=== PATIENT | female | born 1995 | race Caucasian/White ===

== ENCOUNTER 2019-11-18 22:24 | Emergency (ER) | payer OTHER, SELFPAY ==
[2019-11-18 22:37] VITALS: BP 139/77; PULSE 106; RESP 16; TEMP 36.7; O2SAT 100
--- NOTE | 2019-11-18 22:43 | ED.ABDPAIN ---
HPI - Abdominal Pain General Chief Complaint: Abdominal Pain Stated Complaint: STOMACH PAINS Time Seen by Provider: 11/18/19 22:42 History of Present Illness HPI narrative: RLQ pain for the past week. [place]amp[place] in quality. Associated with diarrhea and blood tinged stools. Called PCP and was started on antibiotics for presumed colitis. She continued to have pain, although none at this time. Related Data Home Medications Medication Instructions Recorded Confirmed doxycycline monohydrate 40 mg 40 mg PO DAILY 08/13/19 capsule,immediate - delay release ivermectin 1 % topical cream 1 applic TOPICAL DAILY 08/13/19 Allergies Allergy/AdvReac Type Severity Reaction Status Date / Time adhesive Allergy Unknown HIVES Verified 08/20/19 08:29 azithromycin Allergy Unknown Skin Verified 08/20/19 08:29 irritation codeine Allergy Unknown tight Verified 08/20/19 08:29 chest, shallow breathing penicillin G AdvReac Intermediate Fever Verified 08/20/19 08:29 Review of Systems Review of Systems: All systems reviewed & are unremarkable except as noted in HPI and below Constitutional: Constitutional: Denies fever(s) Cardiovascular: Cardiovascular: Denies chest pain Respiratory: Respiratory: Denies dyspnea Gastrointestinal: Gastrointestinal: Reports abdominal pain and Denies vomiting Genitourinary: Genitourinary: Denies hematuria, Denies dysuria and Denies vaginal discharge [facility] Past Medical History Medical History Anxiety GERD (gastroesophageal reflux disease) Hypermobility syndrome Surgical History Surgical History History of cholecystectomy History of knee surgery Family History Family History Mother Hypertension Sibling Asthma Other Family history of arthritis Family history of cardiovascular disease Social History Social History Smoking status: Former smoker Smoking end date: 10/19/18 Alcohol intake: current Exam Const: General: healthy appearing, no acute distress and alert Orientation/consciousness: patient oriented x3 HENMT: Head: normal to inspection Neck: Neck: normal visual inspection and no lymphadenopathy Chest: Chest palpation & inspection: no tenderness Resp: Effort & Inspection: normal respiratory effort Auscultation: clear to auscultation bilaterally, no rales, no rhonchi and no wheezes Cardio: Jugular venous distension: no JVD Rate: regular rate Rhythm: regular rhythm Heart sounds: no murmurs GI: GI Palp: Yes Soft to palpation, Yes Tenderness to palpation present (GI) (RLQ), No Guarding due to palpation present (GI) and No Rebound tenderness present Skin: General skin exam: normal color Neuro: General: patient oriented x3 and moves all extremities Speech: normal speech Extrem: General: no edema Psych: Appearance: well kempt Affect: normal affect Course Course Emergency Course: After my initial evaluation I was occupied with a critical patient for a few hours and was not able to speak to her again prior to her making the choice to sign out AMA. Vital Signs Vital signs: Vital Signs Temperature 36.7 C 11/18/19 22:37 Pulse Rate 106 H 11/18/19 22:37 Respiratory Rate 16 11/18/19 22:37 Blood Pressure 139/77 11/18/19 22:37 Pulse Oximetry 100 11/18/19 22:37 Temperature 36.7 C 11/18/19 22:37 Pulse Rate 106 H 11/18/19 22:37 Respiratory Rate 16 11/18/19 22:37 Blood Pressure 139/77 11/18/19 22:37 Pulse Oximetry 100 11/18/19 22:37 MDM - Abdominal Pain Differential Diagnosis Differential diagnosis: Likely acute appendicitis, constipation, gastroenteritis and other (IBS, IBD) Medical Records Attestation: I reviewed the patient's medical records. Lab Data Attestation: I reviewed the patient'
[2019-11-18] MEDS: ONDANSETRON INJ 4 MG/2 ML VIAL IV PUSH (23:26)
[2019-11-18] MEDS: DICYCLOMINE HCL INJ 20 MG/2 ML VIAL IM (23:26)
[2019-11-18] MEDS: SODIUM CHLORIDE 0.9% IV 1,000 ML 999 ML IV CONT (23:26)
[2019-11-18 23:35] LABS: Basophils Percent Auto 0.3 % (0.2-1.2); Eosinophils Absolute Auto 0.2 K/mm3 (0-0.3); Eosinophils Percent Auto 1.5 % (0-4.4); Hemoglobin 13.1 g/dL (12.0-15.0); Immature Granulocyte Absolute 0.05 K/mm3 (0.00-0.031); Immature Granulocyte Percent A 0.4 % (0-0.5); Lymphocytes Absolute Auto 4.87 K/mm3 (0.9-3.2); Lymphocytes Percent Auto 43.4 % (18.3-44.2); Mean Corpuscular HGB Conc 33.6 g/dl (32-36); Mean Corpuscular Hemoglobin 31.1 pg (26-34); Mean Corpuscular Volume 92.6 fl (80-100); Mean Platelet Volume 10.3 fl (7.4-10.4); Monocytes Absolute Auto 0.7 K/mm3 (0.1-0.6); Monocytes Percent Auto 6.2 % (2.6-8.5); Neutrophils Absolute Auto 5.4 K/mm3 (1.3-6.7); Neutrophils Percent Auto 48.2 % (45.5-73.1); Platelet Count Result 292 k/mm3 (150-375); Red Blood Count 4.21 M/mm3 (4.2-5.4); Red Cell Distribution Width 12.5 % (11.5-14.5); White Blood Count 11.2 K/mm3 (4.5-10.0)
[2019-11-18 23:43] LABS: Alanine Aminotransferase 27 U/L (4-35); Albumin Level 4.4 g/dL (3.5-5.1); Alkaline Phosphatase 78 U/L (38-126); Aspartate Amino Transferase 28 U/L (14-36); Bilirubin,Total 0.2 mg/dL (0.2-1.3); Blood Urea Nitrogen 12 mg/dL (7-17); Calcium 8.8 mg/dL (8.4-10.2); Carbon Dioxide 27 mmol/L (22-30); Chloride 103 mmol/L (98-107); Estimated Glomerular Filt Rate > 60; Glucose 85 mg/dL (65-105); Lipase 47 U/L (23-300); Potassium 3.8 mmol/L (3.4-5.0); Sodium 139 mmol/L (137-145)
[2019-11-18 23:47] LABS: Add Urine Microscopic? YES; Appearance Urine Clear (Clear); Bacteria Urine Trace /hpf; Bilirubin Urine Negative (Negative); Blood Urine Negative (Negative); Color Urine Yellow (Yellow); Glucose Urine UA Negative (Negative); Ketones Urine Negative (Negative); Leukocyte Esterase Ur Negative LEU/UL (Negative); Mucus Urine Rare /lpf; Nitrate Urine Negative (Negative); Protein Urine 1+ mg/dL (Negative); Squamous Epithelial Cell Urine Moderate /hpf (Few); WBC Urine 0-3 /hpf
== END 2019-11-19 02:49 | disposition left against medical advice (07) ==
PROVIDERS: Emergency Provider Emergency Medicine; PCP Family Medicine Adolescent Medicine
DX: R10.31 Right lower quadrant pain (principal); K21.9 Gastro-esophageal reflux disease without esophagitis; M35.7 Hypermobility syndrome; Z87.891 Personal history of nicotine dependence
CPT/HCPCS: 36415; 80053; 81001; 81025; 83690; 85025; 96361; 96372; 96374; 99284; J0500; J2405; J7030

== ENCOUNTER 2020-02-10 17:58 | Emergency (ER) | payer OTHER, SELFPAY ==
--- NOTE | ~2020-02-10 | CT_ITS ---
EXAMINATION: CT abdomen pelvis wo con DATE: 02/10/2020 19:03 INDICATION: Left flank pain TECHNIQUE: Computed tomography (CT) of the abdomen and pelvis was performed without intravenous contr ast. The dose-length product (DLP) was 1361.05 mGy-cm. Automated exposure control and iterative recon struction technique were employed. COMPARISON: 12/27/2017 FINDINGS: The lung bases are clear. The heart size is normal. The gallbladder is surgically absent. T he liver, spleen, pancreas, and adrenal glands are normal. The kidneys are unremarkable. No stones ar e identified in the kidneys, ureters, or bladder. There is no hydronephrosis or hydroureter. The appe ndix is normal. No pathologically enlarged abdominal or pelvic lymph nodes are identified. There is n o free intraperitoneal gas or evidence of bowel obstruction. A contraceptive device is noted in the v agina. IMPRESSION: 1. No CT correlate for the patient's symptoms. Reviewed, dictated and finalized at location A.
[2020-02-10 18:13] VITALS: BP 151/89; PULSE 99; RESP 20; TEMP 36.9; O2SAT 100
[2020-02-10 18:37] LABS: Basophils Percent Auto 0.2 % (0.2-1.2); Eosinophils Absolute Auto 0.2 K/mm3 (0-0.3); Eosinophils Percent Auto 1.7 % (0-4.4); Hematocrit 40.9 % (37.0-47.0); Hemoglobin 13.9 g/dL (12.0-15.0); Immature Granulocyte Absolute 0.02 K/mm3 (0.00-0.031); Immature Granulocyte Percent A 0.2 % (0-0.5); Lymphocytes Absolute Auto 2.89 K/mm3 (0.9-3.2); Lymphocytes Percent Auto 33.2 % (18.3-44.2); Mean Corpuscular Hemoglobin 31.2 pg (26-34); Mean Corpuscular Volume 91.9 fl (80-100); Mean Platelet Volume 9.9 fl (7.4-10.4); Monocytes Absolute Auto 0.5 K/mm3 (0.1-0.6); Monocytes Percent Auto 5.9 % (2.6-8.5); Neutrophils Absolute Auto 5.1 K/mm3 (1.3-6.7); Neutrophils Percent Auto 58.8 % (45.5-73.1); Platelet Count Result 313 k/mm3 (150-375); Red Blood Count 4.45 M/mm3 (4.2-5.4); White Blood Count 8.7 K/mm3 (4.5-10.0)
[2020-02-10 18:40] LABS: Add Urine Microscopic? YES; Appearance Urine Clear (Clear); Bacteria Urine Trace /hpf; Bilirubin Urine Negative (Negative); Blood Urine 1+ (Negative); Color Urine Yellow (Yellow); Glucose Urine UA Negative (Negative); Ketones Urine Negative (Negative); Leukocyte Esterase Ur Negative LEU/UL (Negative); Mucus Urine Rare /lpf; Nitrate Urine Negative (Negative); Protein Urine Negative (Negative); Squamous Epithelial Cell Urine Few /hpf (Few); Urobilinogen Urine Negative mg/dL (<2.0)
[2020-02-10 18:48] LABS: Anion Gap 13.9 mmol/L (7-16); Blood Urea Nitrogen 10 mg/dL (7-17); Calcium 9.1 mg/dL (8.4-10.2); Carbon Dioxide 24 mmol/L (22-30); Chloride 105 mmol/L (98-107); Estimated CRCL calculation 129 ml/min; Estimated Glomerular Filt Rate > 60; Glucose 104 mg/dL (65-105); Potassium 3.9 mmol/L (3.4-5.0); Sodium 139 mmol/L (137-145)
[2020-02-10] MEDS: ONDANSETRON INJ 4 MG/2 ML VIAL IV PUSH (19:04)
[2020-02-10] MEDS: FAMOTIDINE 20 MG/2 ML VIAL IV PUSH (19:04)
[2020-02-10] MEDS: SODIUM CHLORIDE 0.9% IV 1,000 ML 999 ML IV CONT (19:05)
--- NOTE | 2020-02-10 19:26 | ED.ABDPAIN ---
HPI - Abdominal Pain General Chief Complaint: Urogenital-Female <Alfred Milan PA-C - Last Filed: 02/10/20 20:19> Stated Complaint: left flank pain <Alfred Milan PA-C - Last Filed: 02/10/20 20:19> Time Seen by Provider: 02/10/20 18:46 <Alfred Milan PA-C - Last Filed: 02/10/20 20:19> Source: patient and family <Alfred Milan PA-C - Last Filed: 02/10/20 20:19> Mode of arrival: ambulatory <Alfred Milan PA-C - Last Filed: 02/10/20 20:19> Limitations: no limitations <Alfred iMlan PA-C - Last Filed: 02/10/20 20:19> History of Present Illness HPI narrative: Patient is a 24-year-old female who presents with acute onset left flank pain in the lower abdomen left-sided noting aching pain worse with activity movement associated nausea tried some [id number] medication with no improvement denies similar occurrence in the past presents per private vehicle in no distress <Alfred Milan PA-C - Last Filed: 02/10/20 20:19> Related Data Allergies/Adverse Reactions: Allergies Allergy/AdvReac Type Severity Reaction Status Date / Time adhesive Allergy Unknown HIVES Verified 02/10/20 18:34 azithromycin Allergy Unknown Skin Verified 02/10/20 18:34 irritation codeine Allergy Unknown tight Verified 02/10/20 18:34 chest, shallow breathing penicillin G AdvReac Intermediate Fever Verified 02/10/20 18:34 <Alfred Milan PA-C - Last Filed: 02/10/20 20:19> Review of Systems Review of Systems: All systems reviewed & are unremarkable except as noted in HPI and below <Alfred Milan PA-C - Last Filed: 02/10/20 20:19> [facility] Past Medical History Medical History: Medical History Anxiety GERD (gastroesophageal reflux disease) Hypermobility syndrome <Alfred Milan PA-C - Last Filed: 02/10/20 20:19> Surgical History Surgical History: Surgical History History of cholecystectomy History of knee surgery <Alfred Milan PA-C - Last Filed: 02/10/20 20:19> Social History Social History: Social History Smoking status: Former smoker Smoking end date: 10/19/18 Alcohol intake: current <Alfred Milan PA-C - Last Filed: 02/10/20 20:19> Exam Narrative: Exam Narrative: GENERAL: Well-appearing, obese, and in no acute distress. HEAD: Normocephalic, atraumatic. EYES: PERRLA and EOMI. ENT: Nares clear, no rhinorrhea or epistaxis. Mucous membranes moist. CHEST: Clear to auscultation. No respiratory distress. No wheezes rales or rhonchi HEART: Regular rate and rhythm. No murmur heard. Normal peripheral pulses. ABDOMEN: Soft, left lower quadrant tenderness to palpation no rebound or guarding, nondistended EXTREMITIES: Normal range of motion. No edema. SKIN: Warm, dry, no rash. NEURO: No focal deficits. Alert and oriented x3. PSYCH: Normal mood and affect. <Alfred Mialn PA-C - Last Filed: 02/10/20 20:19> Course Course Emergency Course: Patient in the room in no distress aware of case findings treatment plan and diagnosis. Patient aware of case findings treatment plan diagnosis CT imaging results. Patient felt appropriate for outpatient reevaluation afebrile nontoxic-appearing no distress <Alfred Milan PA-C - Last Filed: 02/10/20 20:19> Vital Signs Vital signs: Vital Signs Temperature 98.4 F 02/10/20 18:13 Pulse Rate 99 02/10/20 18:13 Respiratory Rate 20 02/10/20 18:13 Blood Pressure 151/89 H 02/10/20 18:13 Pulse Oximetry 100 02/10/20 18:13 Temperature 98.4 F 02/10/20 18:13 Pulse Rate 70 02/10/20 20:33 Respiratory Rate 18 02/10/20 20:33 Blood Pressure 132/70 02/10/20 20:33 Pulse Oximetry 98 02/10/20 20:33 <MADELINE Pat Last Filed: 02/10/20 20:19> Vital Signs Te
[2020-02-10 20:02] VITALS: BP 96/58; PULSE 70; RESP 18; O2SAT 99
[2020-02-10 20:33] VITALS: BP 132/70; PULSE 70; RESP 18; O2SAT 98
[2020-02-10] MEDS: KETOROLAC 30 MG/ML VIAL (*BKC) IV PUSH (20:33)
== END 2020-02-10 20:35 | disposition home or self-care (01) ==
PROVIDERS: Emergency Provider Emergency Medicine; PCP Family Medicine Adolescent Medicine
DX: R10.9 Unspecified abdominal pain (principal); M35.7 Hypermobility syndrome; K21.9 Gastro-esophageal reflux disease without esophagitis; Z87.891 Personal history of nicotine dependence
CPT/HCPCS: 36415; 74176; 80048; 81001; 81025; 85025; 87086; 96365; 96375; 99284; J0131; J1885; J2405; J7030

== ENCOUNTER 2020-05-30 17:42 | Emergency (ER) | payer OTHER, SELFPAY ==
[2020-05-30 18:00] VITALS: BP 124/89; PULSE 96; RESP 18; TEMP 36.9; O2SAT 100
--- NOTE | 2020-05-30 18:30 | PC.NURSE ---
Pt was able to get in touch with her doctor and will see him tomorrow.
[2020-05-30 18:38] LABS: Basophils Percent Auto 0.3 % (0.2-1.2); Eosinophils Absolute Auto 0.2 K/mm3 (0-0.3); Eosinophils Percent Auto 1.8 % (0-4.4); Hematocrit 38.6 % (37.0-47.0); Hemoglobin 12.9 g/dL (12.0-15.0); Immature Granulocyte Absolute 0.04 K/mm3 (0.00-0.031); Immature Granulocyte Percent A 0.4 % (0-0.5); Lymphocytes Percent Auto 29.6 % (18.3-44.2); Mean Corpuscular HGB Conc 33.4 g/dl (32-36); Mean Corpuscular Hemoglobin 30.6 pg (26-34); Mean Corpuscular Volume 91.7 fl (80-100); Mean Platelet Volume 9.8 fl (7.4-10.4); Monocytes Absolute Auto 0.5 K/mm3 (0.1-0.6); Monocytes Percent Auto 5.1 % (2.6-8.5); Neutrophils Absolute Auto 6.6 K/mm3 (1.3-6.7); Neutrophils Percent Auto 62.8 % (45.5-73.1); Platelet Count Result 290 k/mm3 (150-375); Red Blood Count 4.21 M/mm3 (4.2-5.4); Red Cell Distribution Width 12.7 % (11.5-14.5); White Blood Count 10.5 K/mm3 (4.5-10.0)
[2020-05-30 18:52] LABS: Alanine Aminotransferase 65 U/L (4-35); Albumin Level 4.2 g/dL (3.5-5.1); Alkaline Phosphatase 63 U/L (38-126); Anion Gap 8 mmol/L (8-16); Aspartate Amino Transferase 45 U/L (14-36); Bilirubin,Total 0.3 mg/dL (0.2-1.3); Blood Urea Nitrogen 14 mg/dL (7-17); Calcium 9.3 mg/dL (8.4-10.2); Carbon Dioxide 29 mmol/L (22-30); Chloride 102 mmol/L (98-107); Estimated CRCL calculation 114 ml/min; Estimated Glomerular Filt Rate > 60; Glucose 100 mg/dL (65-105); Lipase 39 U/L (23-300); Sodium 139 mmol/L (137-145)
== END 2020-05-30 18:30 | disposition left against medical advice (07) ==
LOC: ANHED 18:31
PROVIDERS: Emergency Provider Emergency Medicine; PCP Family Medicine Adolescent Medicine
DX: R10.9 Unspecified abdominal pain (principal)
CPT/HCPCS: 36415; 80053; 83690; 85025; 99199

== ENCOUNTER 2021-02-01 07:23 | Outpatient (CLI) | payer BC, SELFPAY ==
[2021-02-01 08:45] LABS: Hematocrit 37.2 % (37.0-47.0); Hemoglobin 12.3 g/dL (12.0-15.0); Mean Corpuscular HGB Conc 33.1 g/dl (32-36); Mean Corpuscular Hemoglobin 30.4 pg (26-34); Mean Corpuscular Volume 91.9 fl (80-100); Mean Platelet Volume 10.1 fl (7.4-10.4); Platelet Count Result 285 k/mm3 (150-375); Red Blood Count 4.05 M/mm3 (4.2-5.4); White Blood Count 7.6 K/mm3 (4.5-10.0)
[2021-02-01 09:11] LABS: HIV 1/2 Ab P24 Ag Result Negative (Negative)
[2021-02-01 09:25] LABS: Rapid Plasma Reagin Non-Reactive (NonReactive)
[2021-02-01 09:33] LABS: Hepatitis B Surface Anti Res Negative
[2021-02-01 11:52] LABS: Rubella IgG Antibody > 120.0 IU/ML
[2021-02-02 11:22] LABS: Hepatitis B Surface Antigen Negative (Negative)
== END 2021-02-01 07:24 | disposition home or self-care (01) ==
LOC: ANHLAB 07:26
PROVIDERS: PCP Family Medicine Adolescent Medicine; Visit Provider Obstetrics & Gynecology
DX: N92.5 Other specified irregular menstruation (principal)
CPT/HCPCS: 36415; 84702; 85027; 86592; 86644; 86703; 86706; 86747; 86762; 86787; 87340; G0432

== ENCOUNTER 2021-04-27 19:12 | Observation (INO) | payer BC, SELFPAY ==
[2021-04-27 20:00] VITALS: BMI 41.5
[2021-04-27 20:12] LABS: Add Urine Microscopic? NO; Appearance Urine Clear (Clear); Bilirubin Urine Negative (Negative); Blood Urine Negative (Negative); Color Urine Yellow (Yellow); Glucose Urine UA Negative (Negative); Ketones Urine Negative (Negative); Leukocyte Esterase Ur Negative LEU/UL (NEGATIVE); Nitrate Urine Negative (Negative); Protein Urine Negative (Negative); Specific Grav Ur 1.008 (1.001-1.035); Urobilinogen Urine Negative mg/dL (<2.0)
--- NOTE | 2021-04-27 22:56 | OBADM ---
This patient, Rafaela Bullock, admitted to the OB room [facility] for observation. Patient/family oriented to hospital policies and general routines including ID bracelet, bed and alarms, visiting hours, pain management, procedures, bathroom and other care routines, personal items, smoking policy, room service/diet, and visiting hours. Patient/Family are encouraged to report perceived risks to care and to ask questions if they do not understand what they are told or what they should do.
--- NOTE | 2021-05-02 20:32 | P.PNOB_ITS ---
OB - Triage/Final Diagnosis Visit Information Comments/Additional reasons for admission: I have assessed the risk for this patient, Rafaela Bullock, and determined that she would benefit from observation care. Evaluation Laboratory results: Laboratory Tests 04/27/21 20:04 Urine Color Yellow Urine Appearance Clear Urine pH 7.0 Ur Specific [place] 1.008 Urine Protein Negative Urine Glucose (UA) Negative Urine Ketones Negative Ur Blood (Man) Negative Urine Nitrate Negative Urine Bilirubin Negative Urine Urobilinogen Negative Ur Leukocyte Esterase Negative Final Diagnosis (1) Abdominal pain affecting : Code(s): O26.899 - Other specified related conditions, unspecified trimester; R10.9 - Unspecified abdominal pain Status: Acute
== END 2021-04-27 21:00 | disposition home or self-care (01) ==
PROVIDERS: Admitting Provider Obstetrics & Gynecology; PCP Family Medicine Adolescent Medicine; Visit Provider Obstetrics & Gynecology
DX: O26.892 Other specified pregnancy related conditions, second trimester (principal); R10.9 Unspecified abdominal pain; Z3A.17 17 weeks gestation of pregnancy
CPT/HCPCS: 81003; 87086; G0378; G0379

== ENCOUNTER 2021-05-28 10:03 | Observation (INO) | payer BC, SELFPAY ==
[2021-05-28 10:30] VITALS: BP 113/63; PULSE 78; BMI 41.5
--- NOTE | 2021-05-28 10:30 | OBADM ---
This patient, Rafaela Bullock, admitted to the OB room [facility] Post [facility] for observation. Patient/family oriented to hospital policies and general routines including ID bracelet, bed and alarms, visiting hours, pain management, procedures, bathroom and other care routines, personal items, smoking policy, room service/diet, and visiting hours. Patient/Family are encouraged to report perceived risks to care and to ask questions if they do not understand what they are told or what they should do.
[2021-05-28 10:45] VITALS: BP 108/76; PULSE 78
[2021-05-28 11:00] VITALS: BP 105/75; PULSE 79
[2021-05-28 11:15] VITALS: BP 104/65; PULSE 73
[2021-05-28 12:18] LABS: Add Urine Microscopic? NO; Appearance Urine Clear (Clear); Bilirubin Urine Negative (Negative); Blood Urine Negative (Negative); Color Urine Straw (Yellow); Glucose Urine UA Negative (Negative); Ketones Urine Negative (Negative); Leukocyte Esterase Ur Negative LEU/UL (NEGATIVE); Nitrate Urine Negative (Negative); Protein Urine Negative (Negative); Urobilinogen Urine Negative mg/dL (<2.0)
[2021-05-28 12:20] LABS: Specific Grav Ur 1.003 (1.001-1.035)
--- NOTE | 2021-05-30 12:55 | PM.OBTRLD ---
OB - Triage/Final Diagnosis Visit Information Reason for evaluation: threatened labor Comments/Additional reasons for admission: I have assessed the risk for this patient, Rafaela Bullock, and determined that she would benefit from observation care. Evaluation Laboratory results: Laboratory Tests 05/28/21 11:59 Urine Color Straw Urine Appearance Clear Urine pH 7.0 Ur Specific [place] 1.003 Urine Protein Negative Urine Glucose (UA) Negative Urine Ketones Negative Ur Blood (Man) Negative Urine Nitrate Negative Urine Bilirubin Negative Urine Urobilinogen Negative Ur Leukocyte Esterase Negative
== END 2021-05-28 12:45 | disposition home or self-care (01) ==
PROVIDERS: Admitting Provider Obstetrics & Gynecology; PCP Family Medicine Adolescent Medicine; Visit Provider Obstetrics & Gynecology
DX: O47.03 False labor before 37 completed weeks of gestation, third trimester (principal); Z3A.22 22 weeks gestation of pregnancy
CPT/HCPCS: 81003; 87086; G0378; G0379

== ENCOUNTER 2021-07-05 09:36 | Outpatient (RCR) | payer BC, SELFPAY ==
[2021-07-03 10:30] LABS: Hematocrit 33.5 % (37.0-47.0); Hemoglobin 11.4 g/dL (12.0-15.0); Mean Corpuscular Hemoglobin 31.8 pg (26-34); Mean Corpuscular Volume 93.6 fl (80-100); Mean Platelet Volume 9.8 fl (7.4-10.4); Platelet Count Result 317 k/mm3 (150-375); Red Blood Count 3.58 M/mm3 (4.2-5.4); Red Cell Distribution Width 12.6 % (11.5-14.5)
[2021-07-03 11:01] LABS: HIV 1/2 Ab P24 Ag Result Negative (Negative)
[2021-07-05] MEDS: RHO(D) IMMUNE GLOBULIN 300 MCG/2 ML SYRINGE IM (10:09)
== END 2021-10-01 23:59 | disposition home or self-care (01) ==
LOC: ANHLAB 09:36
PROVIDERS: PCP Family Medicine Adolescent Medicine; Visit Provider Obstetrics & Gynecology
DX: Z11.4 Encounter for screening for human immunodeficiency virus [HIV] (principal); Z29.13 Encounter for prophylactic Rho(D) immune globulin; O36.0120 Maternal care for anti-D [Rh] antibodies, second trimester, not applicable or unspecified; Z3A.00 Weeks of gestation of pregnancy not specified
CPT/HCPCS: 36415; 85027; 85461; 86703; 90384; 96372; G0432; J2790

== ENCOUNTER 2021-08-02 15:15 | Emergency (ER) | payer BC, SELFPAY ==
--- NOTE | ~2021-08-02 | XR_ITS ---
XR chest 1V portable DATE: 08/02/2021 16:27 INDICATION: Sternal chest pressure. Shortness of breath. Covid-positive 10 days ago. TECHNIQUE: Portable AP chest on 08/02/2021 at 1623 hours COMPARISON: 10/18/2018 2 view chest FINDINGS: Normal heart size. No hilar or mediastinal enlargement. No pulmonary infiltrate or consolid ation, pleural effusion or pulmonary vascular congestion or pneumothorax. Included skeletal structure s are unremarkable. IMPRESSION: Negative Reviewed, dictated and finalized at location J. NSIONAL ENGINEER IMPRESSION: Negative
--- NOTE | ~2021-08-02 | NM_ITS ---
NM pulmonary perfusion DATE: 08/02/2021 18:04 INDICATION: Chest pressure TECHNIQUE: Routine 8 view perfusion images after intravenous injection of 20.98 mCi 99m technetium MA A COMPARISON: 08/02/2021 vertebral upright AP chest FINDINGS: Normal distribution of radiotracer throughout both lung alan. IMPRESSION: Normal examination. No evidence of clinically significant pulmonary embolus Reviewed, dictated and finalized at Location A. Reviewed, dictated and finalized at location J. [employer]
[2021-08-02 15:35] VITALS: BP 107/93; PULSE 128; RESP 18; TEMP 36.2; O2SAT 97
--- NOTE | 2021-08-02 15:41 | ECG_ITS ---
Measurements Intervals [place] Rate: 91 P: 24 MO: 108 QRS: 35 QRSD: 87 T: 16 QT: 316 QTc: 390 Interpretive Statements SINUS RHYTHM WITH SINUS ARRHYTHMIA WITH SHORT MO INTERVAL INCOMPLETE RIGHT BUNDLE BRANCH BLOCK BORDERLINE ECG Electronically Signed On 08-02-2021 16:22:50 CORNER TRIMMER OPERATOR by Marvel Hall D.O.
--- NOTE | 2021-08-02 16:30 | ED.GENADULT ---
HPI - General Adult General Chief complaint: Upper Respiratory Infection Stated complaint: CP, SOB, covid+ 10 days ago Time Seen by Provider: 08/02/21 16:08 Source: patient and RN notes reviewed Mode of arrival: ambulatory Limitations: no limitations History of Present Illness HPI narrative: This is a 26 year old female [place] 31 weeks who presents for evaluation of chest pressure. She developed symptoms of COVID 10days ago . She reports having cough, nasal congestion and sore throat. She tested positive for COVID last Friday. She has come to ER today because this morning she developed constant upper chest pressure and her cough has become less productive. She also reports shortness of breath with exertion. Her chest pressure is worse with coughing. She denies leg swelling, calf pain or history of PE/DVT. She also denies fever. She states she is unsure how long she is suppose to feel unwell. She reports only receiving 1 dose of covid vaccination over 1 year. She is also complaining of lower abdominal pressure for 3 days but she denies vaginal bleeding or leakage of fluid Related Data Home Medications Medication Instructions Recorded Confirmed No Home Medications 08/02/21 08/02/21 Allergies Allergy/AdvReac Type Severity Reaction Status Date / Time adhesive Allergy Unknown HIVES Verified 08/02/21 15:38 azithromycin Allergy Unknown Skin Verified 08/02/21 15:38 irritation codeine Allergy Unknown tight Verified 08/02/21 15:38 chest, shallow breathing penicillin G AdvReac Intermediate Fever Verified 08/02/21 15:38 Review of Systems Review of Systems: All systems reviewed & are unremarkable except as noted in HPI and below PMFSH Past Medical History Medical History (Updated 08/03/21 @ 00:00 by Essence Ann) Anxiety 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 GERD (gastroesophageal reflux disease) Hypermobility syndrome Surgical History Surgical History (Updated 08/01/21 @ 11:27 by CEM Dwyer) Delivery by section (09/19/15) primary c/s History of cholecystectomy History of knee surgery Family History Family History Mother Hypertension Sibling Asthma Other Family history of arthritis Family history of cardiovascular disease Social History Social History Smoking status: Former smoker Smoking end date: 10/19/18 Alcohol intake: current Gender identity (if verbalized by the patient): Female Exam Const: General: no acute distress and alert Orientation/consciousness: patient oriented x3 Eyes: EOM: EOMs intact bilaterally Chest: Chest palpation & inspection: normal inspection of the chest Resp: Effort & Inspection: normal respiratory effort Auscultation: clear to auscultation bilaterally Cardio: Rate: regular rate Rhythm: regular rhythm Heart sounds: no murmurs GI: GI Palp: Yes Soft to palpation, No Tenderness to palpation present (GI) and No Guarding due to palpation present (GI) Auscultation: normal bowel sounds Skin: General skin exam: normal color Rashes: no rashes Neuro: General: patient oriented x3, moves all extremities and CN's II-XI intact bilaterally Psych: Mental Status: mental status grossly normal Affect: normal affect Course Reevaluation(s) Reevaluation #1: I Discussed with patient that she will need to follow up with OB next week to monitor elevated LFTs. No sign of preeclampsia at this time. She will monitor her blood pressure and she states she is not taking tylenol. No PE suspected. Date: 08/02/21 Time: 20:09 Consultations Consultation #1: I spoke with DR. Madison who is in class special education teacher for Dr. Burt. I discussed ER evaluation. I notified her that LFTS were elevated with no protein in urine and BP is normal. She states they will follow up with Patient early next week. Date: 08/02/21 Time: 20:11
[2021-08-02 16:40] LABS: Basophils Percent Auto 0.2 % (0.2-1.2); Eosinophils Absolute Auto 0.1 K/mm3 (0-0.3); Hematocrit 31.1 % (37.0-47.0); Hemoglobin 10.5 g/dL (12.0-15.0); Immature Granulocyte Absolute 0.04 K/mm3 (0.00-0.031); Immature Granulocyte Percent A 0.4 % (0-0.5); Lymphocytes Percent Auto 21.8 % (18.3-44.2); Mean Corpuscular HGB Conc 33.8 g/dl (32-36); Mean Corpuscular Volume 91.7 fl (80-100); Mean Platelet Volume 10.2 fl (7.4-10.4); Monocytes Absolute Auto 0.7 K/mm3 (0.1-0.6); Monocytes Percent Auto 6.4 % (2.6-8.5); Neutrophils Absolute Auto 7.1 K/mm3 (1.3-6.7); Neutrophils Percent Auto 70.2 % (45.5-73.1); Platelet Count Result 343 k/mm3 (150-375); Red Blood Count 3.39 M/mm3 (4.2-5.4); Red Cell Distribution Width 12.5 % (11.5-14.5); White Blood Count 10.1 K/mm3 (4.5-10.0)
[2021-08-02 16:42] LABS: Add Urine Microscopic? NO; Appearance Urine Clear (Clear); Bilirubin Urine Negative (Negative); Blood Urine Negative (Negative); Color Urine Yellow (Yellow); Glucose Urine UA Negative (Negative); Ketones Urine Negative (Negative); Leukocyte Esterase Ur Negative LEU/UL (Negative); Nitrate Urine Negative (Negative); Protein Urine Negative (Negative); Specific Grav Ur 1.026 (1.001-1.035); Urobilinogen Urine Negative mg/dL (<2.0)
[2021-08-02 16:49] LABS: Alanine Aminotransferase 244 U/L (4-35); Albumin Level 3.5 g/dL (3.5-5.1); Alkaline Phosphatase 108 U/L (38-126); Anion Gap 8 mmol/L (8-16); Aspartate Amino Transferase 197 U/L (14-36); Bilirubin,Total 0.6 mg/dL (0.2-1.3); Blood Urea Nitrogen 7 mg/dL (7-17); Calcium 8.5 mg/dL (8.4-10.2); Carbon Dioxide 22 mmol/L (22-30); Chloride 104 mmol/L (98-107); Estimated CRCL calculation 120 ml/min; Estimated Glomerular Filt Rate > 60; Glucose 100 mg/dL (65-110); Potassium 4.1 mmol/L (3.4-5.0); Sodium 134 mmol/L (137-145)
[2021-08-02 16:55] LABS: INR 0.9; Prothrombin Time 12.2 Seconds (11.1-14.7)
[2021-08-02 16:56] LABS: Partial Thromboplastin Time 29.3 SECONDS (22.3-36.8)
[2021-08-02 16:58] LABS: D Dimer 0.51 ug/mL (<0.48)
[2021-08-02 17:01] LABS: Troponin I < 0.012 ng/mL (0.000-0.034)
[2021-08-02] MEDS: LACTATED RINGERS 1,000 ML 999 ML IV CONT (17:05)
[2021-08-02 19:15] VITALS: O2SAT 98
[2021-08-02 19:16] VITALS: BP 98/66; PULSE 80; RESP 18; O2SAT 98
--- NOTE | 2021-08-02 19:45 | PC.NURSE ---
heart tones obtained by OB nurse. FHR 130's with accelerations and moderate variability. no contractions noted on monitor and abdomen palpates soft. baby noted to me moving audibly and per mom.
== END 2021-08-02 20:37 | disposition home or self-care (01) ==
PROVIDERS: Emergency Provider General Practice; PCP Family Medicine Adolescent Medicine
DX: O98.513 Other viral diseases complicating pregnancy, third trimester (principal); U07.1 COVID-19; R07.89 Other chest pain; R74.01 Elevation of levels of liver transaminase levels; Z3A.31 31 weeks gestation of pregnancy; O99.613 Diseases of the digestive system complicating pregnancy, third trimester; K21.9 Gastro-esophageal reflux disease without esophagitis; Z87.891 Personal history of nicotine dependence; I45.10 Unspecified right bundle-branch block
CPT/HCPCS: 36415; 71045; 78580; 80053; 81003; 84484; 85025; 85380; 85610; 85730; 93005; 96360; 99284; A9540; J7120

== ENCOUNTER 2021-08-09 14:54 | Outpatient (CLI) | payer BC, SELFPAY ==
[2021-08-09 15:27] LABS: Alanine Aminotransferase 263 U/L (4-35); Albumin Level 3.5 g/dL (3.5-5.1); Alkaline Phosphatase 107 U/L (38-126); Aspartate Amino Transferase 223 U/L (14-36); Bilirubin,Total 0.6 mg/dL (0.2-1.3)
== END 2021-08-09 14:55 | disposition home or self-care (01) ==
LOC: ANHLAB 14:56
PROVIDERS: PCP Family Medicine Adolescent Medicine; Visit Provider Obstetrics & Gynecology
DX: R74.8 Abnormal levels of other serum enzymes (principal)
CPT/HCPCS: 36415; 80076

== ENCOUNTER 2021-08-10 00:18 | Outpatient (CLI) | payer BC, SELFPAY ==
[2021-08-10 00:42] VITALS: BP 131/85; PULSE 83
[2021-08-10 00:46] VITALS: BP 125/73; PULSE 82
[2021-08-10 01:06] LABS: Basophils Percent Auto 0.3 % (0.2-1.2); Eosinophils Absolute Auto 0.1 K/mm3 (0-0.3); Eosinophils Percent Auto 1.1 % (0-4.4); Hemoglobin 10.7 g/dL (12.0-15.0); Immature Granulocyte Absolute 0.03 K/mm3 (0.00-0.031); Immature Granulocyte Percent A 0.3 % (0-0.5); Lymphocytes Absolute Auto 3.04 K/mm3 (0.9-3.2); Lymphocytes Percent Auto 30.3 % (18.3-44.2); Mean Corpuscular HGB Conc 33.4 g/dl (32-36); Mean Corpuscular Hemoglobin 30.8 pg (26-34); Mean Corpuscular Volume 92.2 fl (80-100); Mean Platelet Volume 10.1 fl (7.4-10.4); Monocytes Absolute Auto 0.6 K/mm3 (0.1-0.6); Neutrophils Absolute Auto 6.2 K/mm3 (1.3-6.7); Platelet Count Result 340 k/mm3 (150-375); Red Blood Count 3.47 M/mm3 (4.2-5.4); Red Cell Distribution Width 13.1 % (11.5-14.5)
[2021-08-10 01:13] LABS: Add Urine Microscopic? NO; Appearance Urine Clear (Clear); Bilirubin Urine Negative (Negative); Blood Urine Negative (Negative); Color Urine Yellow (Yellow); Glucose Urine UA Negative (Negative); Ketones Urine Negative (Negative); Leukocyte Esterase Ur Negative LEU/UL (NEGATIVE); Nitrate Urine Negative (Negative); Protein Urine Negative (Negative); Urobilinogen Urine Negative mg/dL (<2.0)
[2021-08-10 01:19] LABS: Alanine Aminotransferase 279 U/L (4-35); Albumin Level 3.7 g/dL (3.5-5.1); Alkaline Phosphatase 116 U/L (38-126); Anion Gap 8 mmol/L (8-16); Aspartate Amino Transferase 208 U/L (14-36); Bilirubin,Total 0.6 mg/dL (0.2-1.3); Blood Urea Nitrogen 10 mg/dL (7-17); Calcium 10.9 mg/dL (8.4-10.2); Carbon Dioxide 26 mmol/L (22-30); Chloride 102 mmol/L (98-107); Estimated Glomerular Filt Rate > 60; Glucose 97 mg/dL (65-110); Potassium 3.7 mmol/L (3.4-5.0); Sodium 136 mmol/L (137-145); Uric Acid 5.1 mg/dL (2.5-7.5)
--- NOTE | 2021-08-10 01:40 | PC.NURSE ---
spoke to Dr. Burt notified pt admission for sever headaches. HIP lab result was reported include elevated liver enzyme. requested pain meds for headaches. new order received. If pt feels relived with medication, okay to discharge after two hours.
[2021-08-10] MEDS: ACETAMINOPHEN/BUTALBITAL/CAFFEINE 325-50-40 MG TABLET (FIORICET) 1 TAB (01:43)
[2021-08-10 01:49] VITALS: BP 125/73; PULSE 80
[2021-08-10] MEDS: ACETAMINOPHEN/BUTALBITAL/CAFFEINE 325-50-40 MG TABLET (FIORICET) 1 TAB PO (04:38)
--- NOTE | 2021-08-10 04:49 | P.PNOB_ITS ---
OB - Triage/Final Diagnosis Visit Information Reason for evaluation: other (headache) Comments/Additional reasons for admission: I have assessed the risk for this patient, Rafaela Bell Kobe, and determined that she would benefit from observation care. Evaluation Laboratory results: Laboratory Tests 08/10/21 08/10/21 08/10/21 00:45 00:45 00:45 WBC 10.0 RBC 3.47 L Hgb 10.7 L Hct 32.0 L MCV 92.2 MCH 30.8 MCHC 33.4 RDW 13.1 Plt Count 340 MPV 10.1 Immature Gran % (Auto) 0.3 Neut % (Auto) 62.0 Lymph % (Auto) 30.3 [place] % (Auto) 6.0 Eos % (Auto) 1.1 Baso % (Auto) 0.3 Lymph # (Auto) 3.04 [place] # (Auto) 0.6 Eos # (Auto) 0.1 Baso # (Auto) 0.0 Abs Immat Gran (auto) 0.03 Absolute Neuts (auto) 6.2 Absolute Nucleated RBC 0.0 Nucleated RBC % 0.0 Sodium 136 L Potassium 3.7 Chloride 102 Carbon Dioxide 26 Anion Gap 8 BUN 10 Creatinine 0.70 Estim Creat Clear Calc Not Reportable Estimated GFR > 60 Glucose 97 Uric Acid 5.1 Calcium 10.9 H Total Bilirubin 0.6 AST 208 H ALT 279 H Alkaline Phosphatase 116 Total Protein 7.0 Albumin 3.7 Urine Color Yellow Urine Appearance Clear Urine pH 8.0 Ur Specific [place] 1.010 Urine Protein Negative Urine Glucose (UA) Negative Urine Ketones Negative Ur Blood (Man) Negative Urine Nitrate Negative Urine Bilirubin Negative Urine Urobilinogen Negative Ur Leukocyte Esterase Negative Vital signs: Vital Signs - 24 hr 08/10/21 00:42 08/10/21 00:46 08/10/21 01:49 Pulse Rate 83 82 80 Blood Pressure 131/85 125/73 Blood Pressure [Right Arm] 125/73
--- NOTE | 2021-08-10 04:50 | PC.NURSE ---
Pt states her headache is much better. Dr. Burt phoned in for status and additional lab is ordered. Okay to discharge after lab drawn
[2021-08-10 06:09] LABS: Hepatitis B Surface Antigen Negative (Negative)
[2021-08-10 06:15] LABS: HAV RESULT Negative (Negative); Hepatitis B Core IgM Result Negative (Negative)
[2021-08-10 06:27] LABS: Hepatitis C Virus Antibody Negative (Negative)
== END 2021-08-10 01:47 ==
LOC: ANHOBPP 04:34 → ANHOBOP 08-15 08:24
PROVIDERS: PCP Family Medicine Adolescent Medicine; Visit Provider Obstetrics & Gynecology
DX: O13.3 Gestational [pregnancy-induced] hypertension without significant proteinuria, third trimester (principal); Z3A.32 32 weeks gestation of pregnancy
CPT/HCPCS: 36415; 59025; 80053; 80074; 81003; 84550; 85025; 87086; 99199; A9270; G0378; G0379

== ENCOUNTER 2021-08-14 17:05 | Outpatient (CLI) | payer BC, SELFPAY ==
[2021-08-14 17:30] VITALS: BP 110/71
[2021-08-14 17:36] VITALS: BP 110/71; PULSE 98
[2021-08-14 17:46] VITALS: BP 113/76; PULSE 98
[2021-08-14 17:55] VITALS: BP 113/76
== END 2021-08-14 17:55 | disposition home or self-care (01) ==
LOC: ANHOBOP 17:11 → ANHOBPP 17:11
PROVIDERS: PCP Family Medicine Adolescent Medicine; Visit Provider Obstetrics & Gynecology
DX: O13.9 Gestational [pregnancy-induced] hypertension without significant proteinuria, unspecified trimester (principal); Z3A.00 Weeks of gestation of pregnancy not specified
CPT/HCPCS: 59025; 99199

== ENCOUNTER 2021-08-16 16:57 | Outpatient (CLI) | payer BC, SELFPAY ==
[2021-08-16 14:23] LABS: Hepatitis B Surface Antigen Negative (Negative)
[2021-08-16 14:29] LABS: HAV RESULT Negative (Negative); Hepatitis B Core IgM Result Negative (Negative)
[2021-08-16 14:41] LABS: Hepatitis C Virus Antibody Negative (Negative)
[2021-08-16 18:07] LABS: Alanine Aminotransferase 214 U/L (4-35); Albumin Level 3.5 g/dL (3.5-5.1); Alkaline Phosphatase 127 U/L (38-126); Aspartate Amino Transferase 197 U/L (14-36); Bilirubin,Total 0.5 mg/dL (0.2-1.3)
== END 2021-08-16 16:58 | disposition home or self-care (01) ==
PROVIDERS: PCP Family Medicine Adolescent Medicine; Visit Provider Obstetrics & Gynecology
DX: R74.8 Abnormal levels of other serum enzymes (principal)
CPT/HCPCS: 36415; 80074; 80076

== ENCOUNTER 2021-08-19 12:52 | Observation (INO) | payer BC, SELFPAY ==
[2021-08-19 13:12] VITALS: BP 122/92; PULSE 127
[2021-08-19 13:15] VITALS: BP 123/81; PULSE 123
[2021-08-19 13:30] VITALS: BP 116/81; PULSE 114; TEMP 36.9
[2021-08-19 13:45] VITALS: BP 118/66; PULSE 107
[2021-08-19 13:51] VITALS: BMI 42.1
--- NOTE | 2021-08-19 13:52 | LDADM ---
This patient, Rafaela Bullock, was admitted to OB [facility] on 08/19/21 at 12:52. Plans for labor, pain management and were discussed with patient. Patient/family oriented to hospital policies and general routines including ID bracelet, bed and alarms, visiting hours, pain management, procedures, bathroom and other care routines, personal items, smoking policy, room service/diet and guest tray routines, security routines, and visiting hours. Patient/Family are encouraged to report perceived risks to care and to ask questions if they do not understand what they are told or what they should do. See OBIX for further documentation.
[2021-08-19 13:53] LABS: Add Urine Microscopic? YES; Appearance Urine Clear (Clear); Bacteria Urine Trace /hpf; Bilirubin Urine Negative (Negative); Blood Urine Negative (Negative); Color Urine Yellow (Yellow); Glucose Urine UA Negative (Negative); Ketones Urine Negative (Negative); Leukocyte Esterase Ur Trace LEU/UL (Negative); Mucus Urine Rare /lpf; Nitrate Urine Negative (Negative); Protein Urine Negative (Negative); RBC Urine 0-2 /hpf (0-2); Specific Grav Ur 1.017 (1.001-1.035); Squamous Epithelial Cell Urine Moderate /hpf (Few); Urobilinogen Urine Negative mg/dL (<2.0)
[2021-08-19 14:00] VITALS: BP 108/75; PULSE 103
[2021-08-19 14:15] VITALS: BP 115/81; PULSE 111
--- NOTE | 2021-08-21 16:43 | P.PNOB_ITS ---
OB - Triage/Final Diagnosis Visit Information Comments/Additional reasons for admission: I have assessed the risk for this patient, Rafaela Bullock, and determined that she would benefit from observation care. Evaluation Laboratory results: Laboratory Tests 08/19/21 13:31 Urine Color Yellow Urine Appearance Clear Urine pH 7.0 Ur Specific [place] 1.017 Urine Protein Negative Urine Glucose (UA) Negative Urine Ketones Negative Ur Blood (Man) Negative Urine Nitrate Negative Urine Bilirubin Negative Urine Urobilinogen Negative Leukocyte Esterase Rfl Trace H Urine RBC 0-2 Urine WBC 7-9 H Ur Squamous Epith Cells Moderate H Urine Bacteria Trace Urine Mucus Rare Final Diagnosis (1) Back pain affecting : Code(s): O99.891 - Other specified diseases and conditions complicating ; M54.9 - Dorsalgia, unspecified Status: Acute
== END 2021-08-19 14:45 | disposition home or self-care (01) ==
PROVIDERS: Admitting Provider Obstetrics & Gynecology; PCP Family Medicine Adolescent Medicine; Visit Provider Obstetrics & Gynecology
DX: O99.891 Other specified diseases and conditions complicating pregnancy (principal); M54.9 Dorsalgia, unspecified; Z3A.34 34 weeks gestation of pregnancy
CPT/HCPCS: 81001; 87086; G0378; G0379

== ENCOUNTER 2021-08-21 09:29 | Outpatient (CLI) | payer BC, SELFPAY ==
--- NOTE | ~2021-08-21 | US_ITS ---
US abdomen limited DATE: 08/21/2021 10:19 INDICATION: Elevated serum enzymes TECHNIQUE: Real-time imaging of liver, pancreas, gallbladder fossa COMPARISON: 02/10/2020 CT abdomen pelvis FINDINGS: No hepatic space-occupying mass lesion is evident. Normal hepatopedal portal venous flow di rection. The pancreatic tail is obscured by bowel gas but the pancreas is otherwise unremarkable. The gallbladder is surgically absent. No bile duct dilatation; the common bile duct measures 3 mm. IMPRESSION: Status post cholecystectomy Reviewed, dictated and finalized at Location A. Reviewed, dictated and finalized at location B. P FITNESS ASSISTANT DEPARTMENT HEAD IMPRESSION: Status post cholecystectomy
== END 2021-08-21 09:30 | disposition home or self-care (01) ==
PROVIDERS: PCP Family Medicine Adolescent Medicine; Visit Provider Obstetrics & Gynecology
DX: R74.8 Abnormal levels of other serum enzymes (principal); Z90.49 Acquired absence of other specified parts of digestive tract
CPT/HCPCS: 76705

== ENCOUNTER 2021-08-31 10:54 | Outpatient (CLI) | payer BC, SELFPAY ==
[2021-08-31 12:28] LABS: Alanine Aminotransferase 101 U/L (4-35); Albumin Level 3.7 g/dL (3.5-5.1); Alkaline Phosphatase 123 U/L (38-126); Anion Gap 10 mmol/L (8-16); Aspartate Amino Transferase 98 U/L (14-36); Bilirubin,Total 0.6 mg/dL (0.2-1.3); Blood Urea Nitrogen 10 mg/dL (7-17); Calcium 9.4 mg/dL (8.4-10.2); Carbon Dioxide 23 mmol/L (22-30); Chloride 100 mmol/L (98-107); Estimated Glomerular Filt Rate > 60; Glucose 101 mg/dL (65-110); Potassium 4.1 mmol/L (3.4-5.0); Sodium 133 mmol/L (137-145)
[2021-09-06 10:47] LABS: Chenodeoxycholic Acid 5.1 umol/L (< OR = 3.9); Cholic Acid 16.9 umol/L (< OR = 2.8); Deoxycholic Acid <0.5 umol/L (< OR = 2.3)
== END 2021-08-31 10:55 | disposition home or self-care (01) ==
LOC: ANHLAB 10:56
PROVIDERS: PCP Family Medicine Adolescent Medicine; Visit Provider Obstetrics & Gynecology
DX: R74.8 Abnormal levels of other serum enzymes (principal)
CPT/HCPCS: 36415; 80053; 82542

== ENCOUNTER 2021-09-10 09:26 | Outpatient (RCR) | payer BC, SELFPAY ==
[2021-09-07 11:02] VITALS: BP 109/77; PULSE 117
[2021-09-10 09:51] VITALS: BP 123/82; PULSE 86
== END 2021-11-26 09:00 | disposition home or self-care (01) ==
LOC: ANHOBOP 09:26
PROVIDERS: PCP Family Medicine Adolescent Medicine; Visit Provider Obstetrics & Gynecology
DX: O26.613 Liver and biliary tract disorders in pregnancy, third trimester (principal); K83.1 Obstruction of bile duct; Z3A.36 36 weeks gestation of pregnancy; Z3A.37 37 weeks gestation of pregnancy
CPT/HCPCS: 59025

== ENCOUNTER 2021-09-11 11:00 | Outpatient (CLI) | payer BC, SELFPAY ==
[2021-09-11 11:47] LABS: Hematocrit 30.6 % (37.0-47.0); Mean Corpuscular HGB Conc 32.7 g/dl (32-36); Mean Corpuscular Hemoglobin 29.9 pg (26-34); Mean Corpuscular Volume 91.6 fl (80-100); Mean Platelet Volume 11.1 fl (7.4-10.4); Platelet Count Result 278 k/mm3 (150-375); Red Blood Count 3.34 M/mm3 (4.2-5.4); Red Cell Distribution Width 13.1 % (11.5-14.5); White Blood Count 7.8 K/mm3 (4.5-10.0)
[2021-09-12 14:54] LABS: Rapid Plasma Reagin Non-Reactive (NonReactive)
== END 2021-09-11 11:01 | disposition home or self-care (01) ==
PROVIDERS: PCP Family Medicine Adolescent Medicine; Visit Provider Obstetrics & Gynecology
DX: Z34.93 Encounter for supervision of normal pregnancy, unspecified, third trimester (principal); Z3A.00 Weeks of gestation of pregnancy not specified
CPT/HCPCS: 36415; 85027; 86592; 86850; 86900; 86901

== ENCOUNTER 2021-09-12 09:44 | Inpatient (IN) | payer BC, SELFPAY ==
[2021-09-12] VITALS (53 sets, daily range): BP systolic 98–144; BP diastolic 54–90; PULSE 54–184; RESP 16; TEMP 36.1–37.2; O2SAT 91–100; BMI 43.2
--- NOTE | 2021-09-12 07:56 | PM.IMHP ---
H&P: HPI History of Present Illness Date/Time: 09/12/21 11:51 Rafaela is a 26yo @ 37.3wks (OMI 09/30/21) who presents for scheduled repeat section. She had COVID infection 07/2021 and was then found to have elevated LFT's while in the ER for COVID complications. They were trended and did decrease; US was normal; and hepatitis panel was negative. She started having itching, and bile acids returned elevated diagnosing cholestasis. She was started on ursodiol but reported worse side effects (diarrhea/n/v) and stopped it. She has been undergoing testing which was normal. No regular contractions. No VB or LOF. Good movement. Her is complicated by: 1. H/o x1; for repeat 2. COVID infection 07/2021 3. Cholestasis with elevated LFTs 4. Obesity 5. Rh negative.. s/p rhogam 6. 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 GERD (gastroesophageal reflux disease) Hypermobility syndrome Surgical History Surgical History Delivery by section (09/19/15) primary c/s History of cholecystectomy History of knee surgery Family History Family History Mother Hypertension Sibling Asthma Other Family history of arthritis Family history of cardiovascular disease Social History Social History Smoking status: Never smoker Second hand tobacco smoke exposure: No Smoking end date: 10/19/18 Alcohol intake: former Alcohol use details: socially when not Substance use: never Substance use type: does not use Additional living arrangements comments: mother 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 Gender identity (if verbalized by the patient): Female Sexual Orientation (if Verbalized by the Patient): Straight or Heterosexual Spiritual care concerns: No Meds Home Medications and Allergies Home Medications Medication Instructions Recorded Confirmed Type vitamins-iron fumarate 65 1 tablet PO DAILY 08/31/21 09/07/21 History mg iron-folic acid 1 mg tablet sertraline 50 mg tablet 50 mg PO DAILY #90 tablet 08/31/21 09/07/21 Rx ursodiol 300 mg capsule 300 mg PO TID 30 Days #90 cap 09/06/21 09/07/21 Rx famotidine 20 mg PO BID 09/07/21 09/07/21 History Allergies Allergy/AdvReac Type Severity Reaction Status Date / Time adhesive Allergy Unknown HIVES Verified 09/05/21 09:49 azithromycin Allergy Unknown Skin Verified 09/05/21 09:49 irritation codeine Allergy Unknown tight Verified 09/05/21 09:49 chest, shallow breathing penicillin G AdvReac Intermediate Fever Verified 09/05/21 09:49 Exam Const: General: cooperative, comfortable and no acute distress Nutritional Appearance: obese Resp: Effort & Inspection: normal respiratory effort Cardio: Rate: regular rate GI: GI Palp: No abdominal tenderness and Yes Soft to palpation : Other: FHT's: 130's/ mod elin/ + accels/ no decels - cat 1 TOCO: irregular ctx's Membranes: intact; GBS negative Presentation: cephalic Skin: General skin exam: normal color Neuro: General: patient oriented x3 Extrem: General: normal to inspection Psych: Appearance: grossly normal Affect: normal affect Attitude: cooperative Assessment and Plan Assessment and plan (1) Cholestasis during in third trimester: Code(s): O26.613 - Liver and biliary tract disorders in , third trimester; K83.1 - Obstruction of bile duct Status: Acute (2) Previous section: Code(s): Z98.891 - Hist
--- OUTSIDE RECORDS SUMMARY | 2021-09-12 09:51 | XMS_ITS ---
:1995 Author Care Team Providers Name Role Phone FELECIA LAWRENCE MD Primary Care Provider [phone] Allergies Code Code System Name Reaction Severity Status Onset 2670 RxNorm Codeine Chest Pain Moderate Active ? Zithromax Z-joy Hives Moderate to Active ? Severe Medications Name Status Start Date Stop Date ? ? Accu-Chek Guide Glucose Meter Active ? No t available Accu-Chek Guide test strips Active ? Not available Accu-Chek Softclix Lancets Active ? Not a vailable acyclovir 800 mg tablet Completed ? 02/14/20 amoxicillin 875 mg tablet Active ? Not av ailable amoxicillin 875 mg-potassium clavulanate 125 mg tablet Active ? Not available TAKE 1 TABLET BY MOUTH EVERY 12 HOURS FOR 7 DAYS Bactrim DS 800 mg-160 mg tablet Completed ? 05/31/2020 Take 1 tablet every 12 hours by oral route for 7 days. [id number]-srqobcchyflgo-pssgtffp 50 Active ? Not available mg-300 mg-40 mg capsule cephalexin 500 mg capsule Completed ? 2020 TAKE 1 CAPSULE BY MOUTH EVERY 8 HOURS FOR 10 DAYS ciprofloxacin 500 mg tablet Completed ? 01/19 doxycycline hyclate 20 mg tablet Completed ? 02/14/2020 duloxetine 20 mg capsule,delayed release Active ? Not available TAKE 2 CAPS DAILY FOR 14 DAYS, THEN 1 D AILY FOR 14 DAYS, THEN EVERY OTHER DAY FOR 14 DAYS duloxetine 60 mg capsule,delayed release Active ? Not available TAKE 1 CAPSULE BY MOUTH EVERY DAY famotidine 20 mg tablet Active ? Not avai lable fluconazole 150 mg tablet Active ? Not av ailable TAKE 1 TABLET BY MOUTH EVERY 72 HOURS NEEDED.
--- OUTSIDE RECORDS SUMMARY | 2021-09-12 09:51 | XMS_ITS | Encounter Summary ---
:1995 Author Care Team Providers Name Role Phone Michi Gruber MD Primary Care Provider [phone] Reason for Visit return OB visit Assessment and Plan 1. Routine care ? HIV (1+2) Ab screen, serum ? CBC ? abo group + rh type, blood ? Rh immune globulin screeni ng - rhogam workup and injection Discussion Note: None recorded.Patient educational handouts: No information available. Plan of Care Reminders Provider Appointments None ? ? recorded. Lab HIV (1+2) Ab [facility] Screen, Serum 06/26/2021 [place] ? [facility] 06/26/2021 Center ? [facility] Rh Type, Blood 06/26/2021 Center ? Rh Immune [facility] Globulin Screening 06/26/2021 [place] Referral None ? ? recorded. Procedures None ? ? recorded. Surgeries None ? ? recorded. Imaging None ? ? recorded. Medications Name Start Date ? ? Accu-Chek Guide Glucose Meter ? Accu-Chek Guide test strips ?
--- OUTSIDE RECORDS SUMMARY | 2021-09-12 09:51 | XMS_ITS ---
:1995 Author Care Team Providers Name Role Phone FELECIA LAWRENCE MD Primary Care Provider [phone] Allergies Code Code System Name Reaction Severity Status Onset 2670 RxNorm Codeine Chest Pain Moderate Active ? Zithromax Z-joy Hives Moderate to Active ? Severe Medications Name Status Start Date Stop Date ? ? acyclovir 800 mg tablet Completed ? 02/14/20 amoxicillin 875 mg-potassium Completed ? 04/2021 clavulanate 125 mg tablet Bactrim DS 800 mg-160 mg tablet Completed ? 05/31/2020 Take 1 tablet every 12 hours by oral route for 7 days. ciprofloxacin 500 mg tablet Completed ? 01/19 doxycycline hyclate 20 mg tablet Completed ? 02/14/2020 duloxetine 20 mg capsule,delayed Completed ? 02/14/2020 release duloxetine 60 mg capsule,delayed Completed ? 02/14/2020 release famotidine 20 mg tablet Completed ? 02/14/20 fluconazole 150 mg tablet Completed ? 2020 fluconazole 200 mg tablet Completed ? 2019 hydrocodone 5 mg-acetaminophen 325 mg Completed ? 02/14/2020 tablet hyoscyamine sulfate 0.125 mg tablet Completed ? 02/14/2020 ibuprofen 600 mg tablet Completed ? 02/14/20 20 ibuprofen 800 mg tablet Completed ? 02/14/20 20 ivermectin 1 % topical cream Completed ? 08/09 (28) 1 mg-20 mcg (21)/75 Active ? Not available mg (7) tablet metronidazole 500 mg tablet Completed ? 01/19 nitrofurantoin Completed ? 02/14/2020
[2021-09-12] MEDS: LACTATED RINGERS 1,000 ML 125 ML IV CONT (10:45)
--- NOTE | 2021-09-12 11:10 | LDADM ---
This patient, Rafaela Bullock, was admitted to Labor/Delivery/Recovery 120 on 09/12/21 at 09:44. Plans for labor, pain management and were discussed with patient. Patient/family oriented to hospital policies and general routines including ID bracelet, bed and alarms, visiting hours, pain management, procedures, bathroom and other care routines, personal items, smoking policy, room service/diet and guest tray routines, infant security routines, and visiting hours. Patient/Family are encouraged to report perceived risks to care and to ask questions if they do not understand what they are told or what they should do. See OBIX for further documentation.
[2021-09-12 11:23] LABS: INR 0.9; Prothrombin Time 11.8 Seconds (11.1-14.7)
[2021-09-12 11:24] LABS: Partial Thromboplastin Time 25.6 SECONDS (22.3-36.8)
[2021-09-12 11:26] LABS: Alanine Aminotransferase 99 U/L (4-35); Albumin Level 3.5 g/dL (3.5-5.1); Alkaline Phosphatase 141 U/L (38-126); Anion Gap 7 mmol/L (8-16); Aspartate Amino Transferase 104 U/L (14-36); Bilirubin,Total 0.5 mg/dL (0.2-1.3); Blood Urea Nitrogen 10 mg/dL (7-17); Calcium 8.7 mg/dL (8.4-10.2); Carbon Dioxide 21 mmol/L (22-30); Chloride 105 mmol/L (98-107); Estimated CRCL calculation 123 ml/min; Estimated Glomerular Filt Rate > 60; Glucose 75 mg/dL (65-110); Potassium 4.1 mmol/L (3.4-5.0); Sodium 133 mmol/L (137-145)
[2021-09-12] MEDS: GENTAMICIN SULFATE INJ 365 MG in DEXTROSE 5% 100 ML 100 MG IVPB (11:45)
--- NOTE | 2021-09-12 11:47 | WPDANESEPPF ---
Anes - Initial Pre Proc Eval Procedure: Operation Date: 09/12/21 12:00 Proposed Procedures p Repeat Section - Linda Madison MD Date/Time: 09/12/21 11:47 Surgeon: Linda Madison MD Pre Op Diagnosis: c/s Patient Data Age: 26 Gender: F Height: 1.57 m Weight: 107.3 kg Last Vital Signs Pulse 82 09/12/21 10:15 BP 115/80 09/12/21 10:15 Pulse Ox 99 09/12/21 10:14 Allergies Allergy/AdvReac Type Severity Reaction Status Date / Time adhesive Allergy Unknown HIVES Verified 09/05/21 09:49 azithromycin Allergy Unknown Skin Verified 09/05/21 09:49 irritation codeine Allergy Unknown tight Verified 09/05/21 09:49 chest, shallow breathing penicillin G AdvReac Intermediate Fever Verified 09/05/21 09:49 Home Medications Medication Instructions Recorded Confirmed Type vitamins-iron fumarate 65 1 tablet PO DAILY 08/31/21 09/07/21 History mg iron-folic acid 1 mg tablet sertraline 50 mg tablet 50 mg PO DAILY #90 tablet 08/31/21 09/07/21 Rx ursodiol 300 mg capsule 300 mg PO TID 30 Days #90 cap 09/06/21 09/07/21 Rx famotidine 20 mg PO BID 09/07/21 09/07/21 History Laboratory Tests 09/12/21 09/12/21 11:06 11:06 PT 11.8 Seconds Seconds (11.1-14.7) INR 0.9 APTT 25.6 SECONDS SECONDS (22.3-36.8) Sodium 133 mmol/L L mmol/L (137-145) Potassium 4.1 mmol/L mmol/L (3.4-5.0) Chloride 105 mmol/L mmol/L (98-107) Carbon Dioxide 21 mmol/L L mmol/L (22-30) Anion Gap 7 mmol/L L mmol/L (8-16) BUN 10 mg/dL mg/dL (7-17) Creatinine 0.70 mg/dL mg/dL (0.7-1.0) Estim Creat Clear Calc 123 ml/min ml/min Estimated GFR > 60 (59 - ) Glucose 75 mg/dL mg/dL (65-110) Calcium 8.7 mg/dL mg/dL (8.4-10.2) Total Bilirubin 0.5 mg/dL mg/dL (0.2-1.3) AST 104 U/L H U/L (14-36) ALT 99 U/L H U/L (4-35) Alkaline Phosphatase 141 U/L H U/L (38-126) Total Protein 7.0 g/dL g/dL (6.3-8.2) Albumin 3.5 g/dL g/dL (3.5-5.1) Patient hx anesthesia problems: none Family hx anesthesia problems: none Results Review: All pre-operative results and documents have been reviewed as part of the pre-operative evaluation. 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 GERD (gastroesophageal reflux disease) Hypermobility syndrome Surgical History Surgical History Delivery by section (09/19/15) primary c/s History of cholecystectomy History of knee surgery Family History Family History Mother Hypertension Sibling Asthma Other Family history of arthritis Family history of cardiovascular disease Social History Social History Smoking status: Never smoker Second hand tobacco smoke exposure: No Smoking end date: 10/19/18 Alcohol intake: former Alcohol use details: socially when not Substance use: never Substance use type: does not use Additional living arrangements comments: mother 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
--- NOTE | 2021-09-12 11:53 | WPDHPUPDATE1 ---
History and Physical Update Update Date/Time: 09/12/21 11:53 History and Physical has been reviewed, including an updated exam of the patient. There are NO changes in the patient's condition. Risks, benefits, and alternatives have been discussed and questions answered. Patient agrees to proceed with procedure.
[2021-09-12] MEDS: KETOROLAC 30 MG/ML VIAL (*BKC) IV PUSH ×2 (13:15→19:27)
[2021-09-12] MEDS: CLINDAMYCIN 900 MG/D5W 50 ML 900 MG/50 ML PIGGYBACK 50 MG IVPB (13:17)
--- NOTE | 2021-09-12 13:27 | PM.OBPRVD ---
OB - Delivery Note Procedure Delivery date: 09/12/21 Procedure: Procedures Operation Date: 09/12/21 12:00 <No data on this case meets the specified criteria> Events: Previous Delivery and Other (Cholestasis) Route of delivery: Specimen: Yes (placenta) Quantitative Blood Loss (ml): 555 Anesthesia type: Spinal Disposition: floor Baby Date of : 09/12/21 Time of : 12:44 Weeks of gestation at delivery: 37 (.3) gender: Female Weight (pounds): 6 Weight (ounces): 12 presentation: vertex position: Left Occiput Transverse Placenta delivery description: Expressed Cord Vessel Description: 3 Vessels score one minute: 8 score five minutes: 9 Narrative: She was counseled on all risks and benefits in detail. She was taken to the operating room where spinal was placed. She was then prepped and draped in the normal sterile fashion. She received Gentamycin and Clindamycin due to PCN allergy and a time out was performed. A Pfannenstiel incision was made in the skin and carried down to the underlying fascia. The fascia was nicked on either side of the midline and the fascial incision was extended laterally and superiorly. The fascia was then elevated and the underlying rectus muscles were dissected off the fascia, superiorly and inferiorly. The rectus muscles were then in the midline and the peritoneum was entered bluntly. Once adequate exposure was obtained, no adheasions were palpated and a Mobius self retractor was placed within the abdomen. A low transverse incision was made on the lower uterine segment and clear fluid was noted. The occiput was brought to the hysterotomy and the head was easily delivered. The shoulder and body then followed without complications. The had spontaneous cry and the mouth and nose were bulb suctioned. The cord was clamped and cut and the was handed off to the awaiting pediatric nurse. A segment of the cord was collected for cord gases. The remaining cord blood was collected for typing. With pitocin infusing, the placenta delivered with gentle traction on the cord without complications. The uterus was then cleared out of all clots and debris using a clean, moist lap. The hysterotomy was then repaired in a running, interlocking fashion using 0 Vicryl. A second layer imbricating suture was then made using 0 Vicryl. The hysterotomy was found to be hemostatic and good uterine tone was noted. The bilateral adnexa were examined and found to be normal. The pelvis was cleared of all clots and fluid. The Mobius retractor was removed from the abdomen. The peritoneum, muscle, and fascia were examined and made hemostatic with bovie cautery. A single 0 Vicryl U-stitch was placed to reapproximate the muscles in the midline. The fascia was then repaired using a 0 Vicryl suture in a running fashion. The subcutaneous tissue was then irrigated and made hemostatic with bovie cautery. The subcutaneous tissue was then reapproximated using 2-0 Vicryl. The skin was then closed using 4-0 Monocryl in a running subcuticular fashion. Sponge, lap, needle and instrument counts were correct at the end of the procedure x2. The patient tolerated the procedure well and was taken to recovery in a stable condition. [facility] Delivery Billing Delivery Delivery: Delivery Charge
[2021-09-12] MEDS: diphenhydrAMINE HCl INJ 50 MG/ML VIAL 25 MG IV PUSH (13:55)
[2021-09-12] MEDS: OXYTOCIN 30 UNITS/NS 500 ML 30 UNITS/500 ML BAG 125 UNITS IV CONT (15:44)
[2021-09-12] MEDS: oxyCODONE HCL (*CRX) 5 MG TAB IR 10 MG PO (17:59)
[2021-09-12] MEDS: SIMETHICONE 80 MG TAB.CHEW PO (17:59)
[2021-09-12] MEDS: DOCUSATE SODIUM 100 MG CAPSULE PO (17:59)
[2021-09-12] MEDS: LANOLIN (LANSINOH) 7.5 GM CREAM 1 APPLIC TOPICAL (18:00)
[2021-09-12] MEDS: DEXTROSE 5%/0.45% SOD CHL 1,000 ML 125 ML IV CONT (20:23)
[2021-09-13] VITALS: BP 112/65; PULSE 77; RESP 18; TEMP 37
[2021-09-13] MEDS: KETOROLAC 30 MG/ML VIAL (*BKC) IV PUSH (00:24)
[2021-09-13] MEDS: SIMETHICONE 80 MG TAB.CHEW PO ×5 (03:27→19:12)
[2021-09-13] MEDS: oxyCODONE HCL (*CRX) 5 MG TAB IR 10 MG PO ×3 (03:27→22:46)
[2021-09-13 04:00] VITALS: BP 106/72; PULSE 66; RESP 16; TEMP 36.8
[2021-09-13 05:41] LABS: Basophils Percent Auto 0.4 % (0.2-1.2); Eosinophils Absolute Auto 0.2 K/mm3 (0-0.3); Hematocrit 28.2 % (37.0-47.0); Hemoglobin 9.2 g/dL (12.0-15.0); Immature Granulocyte Absolute 0.05 K/mm3 (0.00-0.031); Immature Granulocyte Percent A 0.5 % (0-0.5); Lymphocytes Absolute Auto 2.96 K/mm3 (0.9-3.2); Lymphocytes Percent Auto 27.9 % (18.3-44.2); Mean Corpuscular HGB Conc 32.6 g/dl (32-36); Mean Corpuscular Hemoglobin 29.6 pg (26-34); Mean Corpuscular Volume 90.7 fl (80-100); Mean Platelet Volume 11.4 fl (7.4-10.4); Monocytes Absolute Auto 0.5 K/mm3 (0.1-0.6); Monocytes Percent Auto 4.8 % (2.6-8.5); Neutrophils Absolute Auto 6.9 K/mm3 (1.3-6.7); Neutrophils Percent Auto 64.4 % (45.5-73.1); Platelet Count Result 265 k/mm3 (150-375); Red Blood Count 3.11 M/mm3 (4.2-5.4); Red Cell Distribution Width 13.2 % (11.5-14.5); White Blood Count 10.6 K/mm3 (4.5-10.0)
[2021-09-13] MEDS: IBUPROFEN 600 MG TABLET PO ×3 (07:52→22:44)
[2021-09-13] MEDS: POLYSACCHARIDE IRON COMPLEX 150 MG CAPSULE PO ×2 (07:53→19:06)
[2021-09-13] MEDS: DOCUSATE SODIUM 100 MG CAPSULE PO ×2 (07:53→19:06)
[2021-09-13] MEDS: oxyCODONE HCL (*CRX) 5 MG TAB IR PO ×3 (07:53→19:11)
[2021-09-13] MEDS: MULTIVIT/MIN/PREN/FOL AC/IRON TABLET 1 TAB PO (07:55)
[2021-09-13 08:00] VITALS: PULSE 66; RESP 16; O2SAT 100
[2021-09-13 08:15] VITALS: BP 116/77; PULSE 86; RESP 16; TEMP 36.6; O2SAT 100
--- NOTE | 2021-09-13 11:52 | WPDANLDPN2 ---
Anes-Prog Note L&D Date/Time: 09/13/21 11:52 Comfortable throughout: section Neuraxial method: spinal Epidural/Spinal procedure site: clean & non-tender Neuro status: Neuro function grossly intact. Cardiovascular status: normal Respiratory status: normal Airway patency: baseline Mental status: baseline Post-Op hydration status: normal Vital Signs: Last Vital Signs Temp 36.6 C 09/13/21 08:15 Pulse 86 09/13/21 08:15 Resp 16 09/13/21 08:15 BP 116/77 09/13/21 08:15 Pulse Ox 100 09/13/21 08:15 Pain score (VAS): 4 I/O: Intake & Output 09/12/21 09/13/21 09/13/21 23:59 07:59 15:59 Intake Total 800 800 Output Total 1300 500 Balance -500 300 Post-procedural complaints: none Patient feedback: Patient satisfied with anesthetic care.
--- NOTE | 2021-09-13 11:52 | WPDANLDNPN2 ---
Anes-Prog Note L&D-Neuraxial Date/Time: 09/13/21 11:52 Neuraxial medications: intrathecal PF morphine Opiod-related complaints: none Patient feedback: Patient satisfied with post-operative pain management.
[2021-09-13 12:05] VITALS: BP 115/69; PULSE 82; RESP 16; TEMP 36.4; O2SAT 99
--- NOTE | 2021-09-13 12:40 | PM.OBPNVD ---
OB - PN: Subj Subjective Date/time seen: 09/13/21 12:36 Narrative: POD#1 Rafaela reports doing ok today, she is feeling anxious and did not sleep last night. Her bleeding is very light. Her pain is controlled, is having some cramping. She is tolerating regular diet, voiding, passing gas, and ambulating without issues. She denies any issues with her incision. She is breast feeding. OB - PN: Obj Data Labs CBC & Chem 7: 09/13/21 04:13 09/12/21 11:06 Labs: Laboratory Results - last 24 hr 09/13/21 04:13 WBC 10.6 H RBC 3.11 L Hgb 9.2 L Hct 28.2 L MCV 90.7 MCH 29.6 MCHC 32.6 RDW 13.2 Plt Count 265 MPV 11.4 H Immature Gran % (Auto) 0.5 Neut % (Auto) 64.4 Lymph % (Auto) 27.9 [place] % (Auto) 4.8 Eos % (Auto) 2.0 Baso % (Auto) 0.4 Lymph # (Auto) 2.96 [place] # (Auto) 0.5 Eos # (Auto) 0.2 Baso # (Auto) 0.0 Abs Immat Gran (auto) 0.05 H Absolute Neuts (auto) 6.9 H Absolute Nucleated RBC 0.0 Nucleated RBC % 0.0 OB - PN A/P Assessment and Plan (1) S/P section: Code(s): Z98.891 - History of uterine scar from previous surgery Status: Acute Plan day: 1 Plan: routine care Time Spent With Patient Time: Total time spent is greater than 50% in coordination of care (as documented) at patient's floor/unit and/or counseling patient: Review of Systems Constitutional: Constitutional: Denies chills, Denies fever(s) and Denies headache(s) Eyes: Eyes: Denies change in vision ENT: Denies dizziness and Denies headache(s) Cardiovascular: Cardiovascular: Denies chest pain, Denies palpitations and Denies dyspnea Respiratory: Respiratory: Denies cough and Denies dyspnea Gastrointestinal: Gastrointestinal: Denies nausea and Denies vomiting Genitourinary: Comments: normal bleeding Neurologic: Denies dizziness and Denies headache(s) Endocrine: Endocrine: Denies palpitations Exam Const: General: cooperative, comfortable and no acute distress Orientation/consciousness: patient oriented x3 Resp: Effort & Inspection: normal respiratory effort Auscultation: clear to auscultation bilaterally Cardio: Rate: regular rate GI: Inspection: non-distended and incision (covered with clean dressing) GI Palp: Yes abdominal tenderness (appropriate) and Yes Soft to palpation Auscultation: normal bowel sounds : Other: fundus firm Skin: General skin exam: normal color Neuro: General: patient oriented x3 Extrem: General: normal to inspection Psych: Appearance: grossly normal Affect: normal affect Attitude: cooperative
--- NOTE | 2021-09-13 14:57 | PC.NURSE ---
[id number] Consulted with patient to assess needs related to . Mother led conversation with her experience with feeding baby so far. Mother works well with her infant with encouragement. Reviewed good handwashing when working with , breast, nipples and how to protect the nipples with a deep latch. Encouraged understanding the benefits of skin to skin, responding to feeding cues, frequencies of feeding 8-12 times in 24 hours (approximately 2-3 hours), duration of feedings, milk production, intake/output feeding sheet and signs of adequate intake. Discussed stimulating with skin to skin, hand expressing colostrum, touch and talking to to encourage eating at the breast. Reviewed positioning and alignment, supporting breast, off-centered (asymmetrical latch) and leading with the chin with big open wide gape. Infant latched onto left breast in cross cradle position with good rocking motion, swallowing and no discomfort to mother. After 5-7 min the nipple was assessed and it was not misshaped. RN assisted practicing football position to the right breast. Education given to mother of how to visualize suck/swallow ratios and drinking at the breast. was able to maintain latch without discomfort to mother. Nipple care, comfort and healing with warm, wet washcloth to rinse breast and leave to air-dry. Colostrum may be left on nipples to dry but have clean hands when touching the nipple/breast. Resources used to facilitate learning were used from the visual handout/ tool/mom and baby guide. Mother voiced understanding responding to feeding cues, may need to stimulating approximately 2-3 hours from the start of the last feeding, calling for assistance if the infant does not latch or there discomfort . Reported to primary RN.
--- NOTE | 2021-09-13 15:02 | PC.NURSE ---
[id number] Breast pump provided due to mother request. Reviewed information regarding pump care, hand washing, nipple care and pumping 8 times in 24 hours (1-2 at night) for 10-15 minutes. Discussed she may want to pump after feedings or between feedings. If after feeding, rest for 5-10 minutes. Get something to eat/drink, use the restroom, then pump. Collection and storage of breast milk per mom and baby guide. Encouraged mom to place skin to skin, breast massage and use hand expression and/or a breast pump in a relaxing atmosphere. Reviewed recording pumping schedule on the feeding sheet or pumping log. Referred to the visual handout along with the mom and baby guide as a resource and when to call a provider. Reported to primary RN.
--- NOTE | 2021-09-13 15:04 | PC.NURSE ---
[id number] Consulted with patient to assess needs related to . Mother led conversation with her experience with feeding baby so far. Mother works well with her infant. Reviewed how to protect the nipples with a deep latch. Encouraged understanding the benefits of skin to skin, responding to feeding cues, frequencies of feeding 8-12 times in 24 hours (approximately 2-3 hours), duration of feedings, milk production, intake/output feeding sheet and signs of adequate intake. Discussed stimulating infant with skin to skin, hand expressing colostrum, touch and talking to infant to encourage eating at the breast. Reviewed positioning and alignment, supporting breast, off-centered (asymmetrical latch) and leading with the chin with big open wide gape. Infant latched optimally to the left breast in football position after several learning attempts. Education given to mother of how to visualize suck/swallow ratios and drinking at the breast. Infant was able to maintain latch without discomfort to mother. After 10 min infant detached and nipple was visualized as not misshaped. RN assisted mother into a optimal latch to the right breast in football position. Nipple care, comfort and healing with warm, wet washcloth to rinse breast and leave to air-dry. Colostrum may be left on nipples to dry but have clean hands when touching the nipple/breast. Resources used to facilitate learning were used from the visual handout, tool and mom and baby guide. Mother voiced understanding responding to feeding cues, may need to stimulating approximately 2-3 hours from the start of the last feeding, calling for assistance if the infant does not latch or there discomfort . Mother verbalized frustration with father of the baby several times. Encouraged dad with some things he can do to support mother and baby. Encouraged mother to asked for assistance and specifically what others can do to facilitate and healing. Reported to primary RN.
[2021-09-13] MEDS: CALCIUM CARBONATE (TUMS) 500 MG (200 MG ELEMENTAL) (15:18)
[2021-09-13] MEDS: SERTRALINE HCL 50 MG TABLET PO (19:12)
[2021-09-13 20:28] VITALS: BP 127/73; PULSE 88; RESP 18; TEMP 36.8; O2SAT 97
--- NOTE | 2021-09-14 05:41 | PM.OBPNVD ---
OB - PN: Subj Subjective Date/time seen: 09/14/21 05:41 Narrative: POD#2 Rafaela reports feeling better today, she is less anxious and finally got some sleep. Her bleeding is very light. Her pain is controlled, is having some cramping. She is tolerating regular diet, voiding, passing gas, and ambulating without issues. She denies any issues with her incision. She is breast feeding. She would like to go home today. OB - PN: Obj Data Labs CBC & Chem 7: 09/13/21 04:13 09/12/21 11:06 Labs: Laboratory Results - last 24 hr 09/13/21 04:13 WBC 10.6 H RBC 3.11 L Hgb 9.2 L Hct 28.2 L MCV 90.7 MCH 29.6 MCHC 32.6 RDW 13.2 Plt Count 265 MPV 11.4 H Immature Gran % (Auto) 0.5 Neut % (Auto) 64.4 Lymph % (Auto) 27.9 [place] % (Auto) 4.8 Eos % (Auto) 2.0 Baso % (Auto) 0.4 Lymph # (Auto) 2.96 [place] # (Auto) 0.5 Eos # (Auto) 0.2 Baso # (Auto) 0.0 Abs Immat Gran (auto) 0.05 H Absolute Neuts (auto) 6.9 H Absolute Nucleated RBC 0.0 Nucleated RBC % 0.0 OB - PN A/P Assessment and Plan (1) S/P section: Code(s): Z98.891 - History of uterine scar from previous surgery Status: Acute Plan day: 2 Plan: discharge home Comments: - Pelvic rest; take meds as prescribed - Incision care/no heavy lifting - ER return precautions: fever, n/v/abd pain, bleeding, HTN Time Spent With Patient Time: Total time spent is greater than 50% in coordination of care (as documented) at patient's floor/unit and/or counseling patient: Review of Systems Constitutional: Constitutional: Denies chills, Denies fever(s) and Denies headache(s) Eyes: Eyes: Denies change in vision ENT: Denies dizziness and Denies headache(s) Cardiovascular: Cardiovascular: Denies chest pain, Denies palpitations and Denies dyspnea Respiratory: Respiratory: Denies cough and Denies dyspnea Gastrointestinal: Gastrointestinal: Denies nausea and Denies vomiting Genitourinary: Comments: normal bleeding Neurologic: Denies dizziness and Denies headache(s) Endocrine: Endocrine: Denies palpitations Exam Const: General: cooperative, comfortable and no acute distress Orientation/consciousness: patient oriented x3 Resp: Effort & Inspection: normal respiratory effort Auscultation: clear to auscultation bilaterally Cardio: Rate: regular rate GI: Inspection: non-distended and incision (covered with clean dressing) GI Palp: Yes abdominal tenderness (appropriate) and Yes Soft to palpation Auscultation: normal bowel sounds : Other: fundus firm Skin: General skin exam: normal color Neuro: General: patient oriented x3 Extrem: General: normal to inspection Psych: Appearance: grossly normal Affect: normal affect Attitude: cooperative
[2021-09-14 07:39] VITALS: BP 123/79; PULSE 72; RESP 18; TEMP 36.9; O2SAT 100
[2021-09-14] MEDS: POLYSACCHARIDE IRON COMPLEX 150 MG CAPSULE PO (08:25)
[2021-09-14] MEDS: IBUPROFEN 600 MG TABLET PO (08:25)
[2021-09-14] MEDS: oxyCODONE HCL (*CRX) 5 MG TAB IR 10 MG PO (08:25)
[2021-09-14] MEDS: DOCUSATE SODIUM 100 MG CAPSULE PO (08:25)
[2021-09-14] MEDS: SIMETHICONE 80 MG TAB.CHEW PO (08:27)
--- NOTE | 2021-09-14 12:00 | PC.NURSE ---
Patient instructed to view the discharge video Mother & Baby Care, The First Two Weeks . Patient was given the opportunity and encouraged to ask questions. Patient verbalized understanding of information shared and has been given the mother/baby guide for home reference.
--- NOTE | 2021-09-14 12:00 | PC.NURSE ---
[phone] Introductions were made and mother led the conversation with regards to her experience feeding her baby so far. Reminded mother to use good handwashing to prevent infection. Infant has had appropriate feedings in the past 24 hours and meets the outcomes for weight, output and jaundice. Mother states she feels confident to continue effectively her infant at home and the last feeding the baby latch well, sucked and swallowed without discomfort. Mother was encouraged that the infant was doing better and she feels like her milk is coming in. Reviewed production of human milk, transition of milk, signs of adequate intake and engorgement prevention/relief and when to call the infant care provider using the mom and baby guide. Reviewed medications mother is taking with information provided by [facility], community resources and outpatient services as listed in the mom and baby guide/[facility] website. Reinforced watching for feeding cues with responsive feeding and how to stimulate infant to initiate feeding three hours from the start of the last feeding. Mother voiced understanding of information shared. Reported to primary RN.
[2021-09-15 10:48] VITALS: BP 128/80; PULSE 97; RESP 20; TEMP 37.1; O2SAT 99
--- NOTE | 2021-09-17 08:12 | PM.OBDSVD ---
DS: Admitting Diagnosis Discharge Date 09/14/21 Admitting Diagnosis cholestasis of prior section DS: Discharge Diagnosis Discharge Diagnosis (1) S/P section: Code(s): Z98.891 - History of uterine scar from previous surgery Status: Acute (2) Cholestasis during in third trimester: Code(s): O26.613 - Liver and biliary tract disorders in , third trimester; K83.1 - Obstruction of bile duct Status: Acute OB - DS: Summary OB Procedures : NST, PIH Mgmt and Ultrasound OB Procedures Intrapartum: low cervical, transverse OB Procedures: : None Peripartum Data Delivery Method: Section Procedures: Procedures Operation Date: 09/12/21 12:00 Actual Procedure Side Surgeon p Section Linda Madison MD complications: none [place] 1: Gender: Female Disposition of : home Status at Discharge Functional status at discharge: independent ambulation Overall status at discharge: patient is back to baseline Time Spent with Patient Time attestation: Total time spent providing and/or coordinating discharge services: Time spent: Less than 30 minutes Exam Const: General: cooperative, comfortable and no acute distress Orientation/consciousness: patient oriented x3 Resp: Effort & Inspection: normal respiratory effort Auscultation: clear to auscultation bilaterally Cardio: Rate: regular rate GI: Inspection: non-distended and incision (covered with clean dressing) GI Palp: No abdominal tenderness and Yes Soft to palpation Auscultation: normal bowel sounds : Other: fundus firm Skin: General skin exam: normal color Neuro: General: patient oriented x3 Extrem: General: normal to inspection Psych: Appearance: grossly normal Affect: normal affect Attitude: cooperative DS: Data Data Completed and Pending Pending studies at discharge: Pending at discharge 09/12/21 13:14 Surgical [PTH] Routine Discharge Plan Discharge Attending physician on discharge: Linda Madison Consulting providers: [place] Discharging Clinician: Linda Madison Anticipated Discharge Date/Time: 09/14/21 11:30 Patient Disposition: Home, Self-Care Activity: may shower, may drive after 2 weeks and pelvic rest Diet: regular Discharge Instructions: no heavy lifting >10lbs x 6 weeks remove dressing 09/18/21 Education: Mom and Baby Guide and Preeclampsia handout Given to: Mother Follow-Up: Call your delivering provider's office for an appointment to be seen in: 1 Week Mom and baby should come to the [facility] for the follow-up appointment. Appointment Date/Time: September 15, 2021 at 11:00 am What to expect at your follow-up visit: Physical Assessment Call [phone] if you are unable to keep your appointment time. BREAST CARE: * Wear a snug supportive bra. * For engorgement discomfort: Breast Feeding: * Apply warm moist washcloths * Express milk as needed to relieve engorgement * Wear loose clothing * For sore nipples: * Identify correct latch-on * Apply warm moist washcloths before and after nursing * Air dry nipples after nursing * May apply Lansinoh cream to nipples ABDOMINAL INCISION: (if applicable) * Allow incision to air dry * Do NOT use lotions for powders on your incision * When showering, allow soap and water to run over the incision, but do not wash incision EPISIOTOMY/PERINEAL CARE: * Until bleeding stops, use your gordy bottle after urinating * Change your pad frequently throughout the day * No tub baths until seen by your physician - You may shower ACTIVITY: * Rest as much as possible. * Do not exercise or lift anything heavier than your baby (such as laundry or other children.) * Avoid stairs or driving as much as possible. * Do not put a
== END 2021-09-14 12:50 | disposition home or self-care (01) | DRG 787 ==
LOC: ANHLDR 09:49 → ANHOB2 16:30
PROVIDERS: Admitting Provider Obstetrics & Gynecology; PCP Family Medicine Adolescent Medicine; Visit Provider Obstetrics & Gynecology
PROC: 10D00Z1 Extraction of Products of Conception, Low, Open Approach (ICD-10-PCS; CPT 59514; principal; 2021-09-12 12:00)
DX: O26.62 Liver and biliary tract disorders in childbirth (principal); O36.0930 Maternal care for other rhesus isoimmunization, third trimester, not applicable or unspecified; Z37.0 Single live birth; Z3A.37 37 weeks gestation of pregnancy; K71.0 Toxic liver disease with cholestasis; O99.62 Diseases of the digestive system complicating childbirth; K21.9 Gastro-esophageal reflux disease without esophagitis; O99.214 Obesity complicating childbirth; E66.9 Obesity, unspecified; O34.211 Maternal care for low transverse scar from previous cesarean delivery; Z14.1 Cystic fibrosis carrier; O99.344 Other mental disorders complicating childbirth; F41.9 Anxiety disorder, unspecified
CPT/HCPCS: 36415; 59025; 80053; 85025; 85027; 85610; 85730; 86592; 86850; 86900; 86901; 88307; A9270; J0131; J1200; J1580; J1885; J2274; J2590; J7120

== ENCOUNTER 2022-03-22 11:07 | Outpatient (CLI) | payer BC, SELFPAY ==
[2022-03-22 13:07] LABS: Basophils Percent Auto 0.2 % (0.2-1.2); Eosinophils Absolute Auto 0.1 K/mm3 (0-0.3); Eosinophils Percent Auto 1.2 % (0-4.4); Hematocrit 33.4 % (37.0-47.0); Hemoglobin 11.2 g/dL (12.0-15.0); Immature Granulocyte Absolute 0.02 K/mm3 (0.00-0.031); Immature Granulocyte Percent A 0.2 % (0-0.5); Lymphocytes Absolute Auto 2.25 K/mm3 (0.9-3.2); Lymphocytes Percent Auto 27.6 % (18.3-44.2); Mean Corpuscular HGB Conc 33.5 g/dl (32-36); Mean Corpuscular Volume 92.5 fl (80-100); Mean Platelet Volume 10.2 fl (7.4-10.4); Monocytes Absolute Auto 0.3 K/mm3 (0.1-0.6); Monocytes Percent Auto 3.4 % (2.6-8.5); Neutrophils Absolute Auto 5.5 K/mm3 (1.3-6.7); Neutrophils Percent Auto 67.4 % (45.5-73.1); Platelet Count Result 284 k/mm3 (150-375); Red Blood Count 3.61 M/mm3 (4.2-5.4); Red Cell Distribution Width 13.9 % (11.5-14.5); White Blood Count 8.2 K/mm3 (4.5-10.0)
[2022-03-22 13:17] LABS: Glucose 1 Hour PP 50gm Dose 133 mg/dL
[2022-03-22 13:58] LABS: HIV 1/2 Ab P24 Ag Result Negative (Negative)
[2022-03-22 14:02] LABS: Hepatitis B Surface Antigen Negative (Negative)
[2022-03-25 09:17] LABS: Rapid Plasma Reagin Non-Reactive (NonReactive)
== END 2022-03-22 11:08 | disposition home or self-care (01) ==
LOC: ANHLAB 11:10
PROVIDERS: PCP Family Medicine Adolescent Medicine; Visit Provider Obstetrics & Gynecology
DX: N94.89 Other specified conditions associated with female genital organs and menstrual cycle (principal); Z11.4 Encounter for screening for human immunodeficiency virus [HIV]
CPT/HCPCS: 36415; 82947; 84702; 85025; 86592; 86644; 86703; 86747; 86787; 86850; 86900; 86901; 87086; 87340; G0432

== ENCOUNTER → 2022-05-01 13:51 | Outpatient (CLI) | payer BC, SELFPAY ==
--- NOTE | ~2022-05-01 | US_ITS ---
EXAMINATION: US OB /maternal detail DATE: 05/01/2022 14:32 INDICATION: Second trimester anatomic survey TECHNIQUE: Real-time ultrasound of the pelvis was performed. COMPARISON: None. FINDINGS: There is a single living fetus in transverse lie. The placenta is posterior and 5.6 cm from the inter nal cervical some. The cervical length is 4.1 cm. heart rate is 145 beats per minute (bpm). Fe geraldine cardiac activity and movement are noted. The amniotic fluid index is subjectively normal. The following anatomy was identified as normal: 4 chamber heart 3 vessel cord cord insertion kidneys urinary bladder stomach spine diaphragm ventricles cisterna magna cerebellum The following biometric data were obtained: Biparietal diameter (BPD): 3.9 cm; head circumference (HC): 15.6 cm; abdominal circumference (AC): 14 .1 cm; femur length (FL): 3.2 cm. These measurements are concordant. Estimated weight is 300 g +/- 45 g, which correlates with the 14th percentile when 09/16/2022 is used as estimated date of delivery. As single measurements, these parameters are each equal to the following estimated gestational ages w ith ranges of +/- 2 standard deviations: BPD: 17 weeks 6 days +/- 1 weeks 1 days. HC: 18 weeks 3 days +/- 1 weeks 3 days. AC: 19 weeks 4 days +/- 2 weeks 0 days. FL: 20 weeks 0 days +/- 1 weeks 6 days. estimated gestational age based solely on measurements from this exam is 19 weeks 0 days +/- 1 weeks 2 days. IMPRESSION: 1. Single living fetus in transverse lie. 2. Estimated weight is 300 g +/- 45 g, which correlates with the 14th percentile when 09/16/2022 is used as estimated date of delivery. Reviewed, dictated and finalized at location A. IMPRESSION: 1. Single living fetus in transverse lie. 2. Estimated weight is 300 g +/- 45 g, which correlates with the 14th per centile when 09/16/2022 is used as estimated date of delivery.
== END ==
PROVIDERS: PCP Obstetrics & Gynecology; Visit Provider Obstetrics & Gynecology
DX: Z34.92 Encounter for supervision of normal pregnancy, unspecified, second trimester (principal); Z3A.19 19 weeks gestation of pregnancy
CPT/HCPCS: 76805

== ENCOUNTER 2022-05-10 10:19 | Outpatient (CLI) | payer BC, SELFPAY ==
[2022-05-10 10:45] LABS: Alanine Aminotransferase 14 U/L (6-35); Albumin Level 3.9 g/dL (3.5-5.1); Alkaline Phosphatase 64 U/L (38-126); Anion Gap 15 mmol/L (8-16); Aspartate Amino Transferase 20 U/L (14-36); Bilirubin,Total 0.3 mg/dL (0.2-1.3); Blood Urea Nitrogen 6 mg/dL (7-17); Calcium 9.1 mg/dL (8.4-10.2); Carbon Dioxide 26 mmol/L (22-30); Chloride 99 mmol/L (98-107); Estimated Glomerular Filt Rate > 60; Glucose 98 mg/dL (65-110); Partial Thromboplastin Time 30.6 SECONDS (22.3-36.8); Potassium 3.5 mmol/L (3.4-5.0); Sodium 140 mmol/L (137-145)
[2022-05-18 16:08] LABS: Chenodeoxycholic Acid 2.3 umol/L (< OR = 3.9); Cholic Acid 1.7 umol/L (< OR = 2.8); Deoxycholic Acid <0.5 umol/L (< OR = 2.3)
== END 2022-05-10 10:20 | disposition home or self-care (01) ==
LOC: ANHLAB 10:20
PROVIDERS: PCP Obstetrics & Gynecology; Visit Provider Obstetrics & Gynecology
DX: Z87.59 Personal history of other complications of pregnancy, childbirth and the puerperium (principal); Z87.19 Personal history of other diseases of the digestive system
CPT/HCPCS: 36415; 80053; 82542; 85610; 85730

== ENCOUNTER 2022-07-03 14:00 | Outpatient (RCR) | payer BC, SELFPAY ==
[2022-07-01 12:58] LABS: Basophils Percent Auto 0.2 % (0.2-1.2); Eosinophils Absolute Auto 0.2 K/mm3 (0-0.3); Eosinophils Percent Auto 1.9 % (0-4.4); Hematocrit 33.1 % (37.0-47.0); Hemoglobin 11.1 g/dL (12.0-15.0); Immature Granulocyte Absolute 0.02 K/mm3 (0.00-0.031); Immature Granulocyte Percent A 0.2 % (0-0.5); Lymphocytes Absolute Auto 2.22 K/mm3 (0.9-3.2); Lymphocytes Percent Auto 24.3 % (18.3-44.2); Mean Corpuscular HGB Conc 33.5 g/dl (32-36); Mean Corpuscular Hemoglobin 31.5 pg (26-34); Mean Platelet Volume 9.8 fl (7.4-10.4); Monocytes Absolute Auto 0.6 K/mm3 (0.1-0.6); Neutrophils Absolute Auto 6.1 K/mm3 (1.3-6.7); Neutrophils Percent Auto 66.4 % (45.5-73.1); Platelet Count Result 341 k/mm3 (150-375); Red Blood Count 3.52 M/mm3 (4.2-5.4); Red Cell Distribution Width 12.7 % (11.5-14.5); White Blood Count 9.1 K/mm3 (4.5-10.0)
[2022-07-01 13:07] LABS: Glucose 1 Hour PP 50gm Dose 96 mg/dL
[2022-07-01 13:48] LABS: HIV 1/2 Ab P24 Ag Result Negative (Negative)
[2022-07-03] MEDS: RHO(D) IMMUNE GLOBULIN 300 MCG/2 ML SYRINGE IM (10:42)
[2022-07-07 16:53] LABS: Chenodeoxycholic Acid 4.6 umol/L (< OR = 3.9); Cholic Acid 15.1 umol/L (< OR = 2.8); Deoxycholic Acid <0.5 umol/L (< OR = 2.3); Total Bile Acids 19.6 umol/L (< OR = 8.3)
== END 2022-07-03 14:01 | disposition home or self-care (01) ==
LOC: ANHLAB 14:00
PROVIDERS: Student in an Organized Health Care Education/Training Program; PCP Obstetrics & Gynecology; Visit Provider Obstetrics & Gynecology
DX: Z11.4 Encounter for screening for human immunodeficiency virus [HIV] (principal); Z29.13 Encounter for prophylactic Rho(D) immune globulin; O36.0190 Maternal care for anti-D [Rh] antibodies, unspecified trimester, not applicable or unspecified; Z3A.00 Weeks of gestation of pregnancy not specified
CPT/HCPCS: 36415; 82542; 82947; 85025; 85461; 86703; 86850; 86900; 86901; 90384; 96372; G0432; J2790

== ENCOUNTER 2022-07-07 11:25 | Emergency (ER) | payer BC, SELFPAY ==
--- NOTE | 2022-07-07 11:27 | ED.URI ---
HPI - URI/Sore Throat General Chief Complaint: Upper Respiratory Infection Stated Complaint: COLD SYMPTOMS/SOB/CHEST HEAVY/FACIAL PAIN/ Time Seen by Provider: 07/07/22 11:27 Source: patient Mode of arrival: ambulatory Limitations: no limitations History of Present Illness HPI Narrative: Ms. Bullock is a 27-year-old female patient presenting to the clinic today with nasal congestion, shortness of breath, chest heaviness, sinus pressure x3 weeks. She reports she is 30 weeks . She reports she has had some chills and possibly fever. States she is not short of breath when sitting but when she is up moving around she does notice some shortness of breath MD elicited complaint: sore throat and nasal congestion Related Data Home Medications Medication Instructions Recorded Confirmed polysaccharide iron complex 150 mg mg 07/07/22 iron capsule Allergies Allergy/AdvReac Type Severity Reaction Status Date / Time adhesive Allergy Unknown HIVES Verified 07/07/22 11:31 azithromycin Allergy Unknown Skin Verified 07/07/22 11:31 irritation codeine Allergy Unknown tight Verified 07/07/22 11:31 chest, shallow breathing penicillin G AdvReac Intermediate Fever Verified 07/07/22 11:31 Review of Systems Review of Systems: Pertinent positives per HPI. Patient denies any rash, headache, visual changes, shortness of breath, chest pain, palpitations, nausea, vomiting, diarrhea, constipation, abdominal pain, or any urinary issues. 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 GERD (gastroesophageal reflux disease) Hypermobility syndrome Suppression of menstruation Surgical History Surgical History Delivery by section (09/19/15) primary c/s History of cholecystectomy History of knee surgery Family History Family History Mother Hypertension Sibling Asthma Other Family history of arthritis Family history of cardiovascular disease Social History Social History Smoking status: Never smoker Second hand tobacco smoke exposure: No Smoking end date: 10/19/18 Alcohol intake: former Alcohol use details: socially when not Substance use: never Substance use type: does not use Additional living arrangements comments: mother 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 There is no relevant family history pertinent to the patient complaint. Exam Narrative: General: Well-developed, well nourished, in no apparent distress Head: Normocephalic, atraumatic Eyes: Pupils equally round and reactive to light bilaterally, EOM intact, sclera and conjunctive clear, no discharge, lids normal Ears: TMs intact and dull, ear canals clear, no drainage, grossly hearing normal. Nose: Nares patent, green nasal drainage discharge, severe inflammation, maxillary and frontal sinus tenderness. Mouth: Oral pharynx without lesions or masses, good dentition, MMM. Postnasal drip Neck: Supple, trachea midline, no enlargement of anterior or posterior cervical nodes, no thyroid masses or goiter palpable. Cardio: Regular rate and rhythm, s1 and s2 normal, no murmur appreciated. Resp: Clear to auscultation bilaterally, no rhonchi, rales, wheezing or rubs Course Course Emergency Course: Portions of this record may have been created with voice recognition software. Level of Care: Express Care Visi
[2022-07-07 11:32] VITALS: BP 110/75; PULSE 120; RESP 16; TEMP 36.8; O2SAT 100
== END 2022-07-07 11:49 | disposition home or self-care (01) ==
PROVIDERS: Emergency Provider Nurse Practitioner Family; PCP Family Medicine Adolescent Medicine
DX: O99.513 Diseases of the respiratory system complicating pregnancy, third trimester (principal); Z3A.30 30 weeks gestation of pregnancy; J01.90 Acute sinusitis, unspecified; O99.613 Diseases of the digestive system complicating pregnancy, third trimester; K21.9 Gastro-esophageal reflux disease without esophagitis; O99.343 Other mental disorders complicating pregnancy, third trimester; F41.9 Anxiety disorder, unspecified; Z14.1 Cystic fibrosis carrier; Z87.891 Personal history of nicotine dependence
CPT/HCPCS: 99213; G0463

== ENCOUNTER 2022-07-22 02:24 | Emergency (ER) | payer BC, SELFPAY ==
--- NOTE | ~2022-07-22 | CT_ITS ---
EXAMINATION: CT brain wo con DATE: 07/22/2022 05:45 INDICATION: Right frontal headache. TECHNIQUE: Computed tomography (CT) of the head was performed without intravenous contrast. The mA wa s adjusted according to patient size. Iterative reconstruction technique was employed. The dose-lengt h product was 605.33 mGy-cm. COMPARISON: Head CT 03/06/2019 FINDINGS: There is no intracranial hemorrhage, acute infarction, or abnormal intracranial mass lesion . The ventricles are normal in size. The orbits are normal. There is mucosal thickening in the [place] sinuses. The mastoid air cells are normal. The temporomandibular joints are normal. IMPRESSION: 1. Normal brain. Reviewed, dictated and finalized at location A. 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 Normal brain.
[2022-07-22 02:38] VITALS: BP 116/76; PULSE 103; RESP 20; TEMP 36.8; O2SAT 99
--- NOTE | 2022-07-22 04:59 | ED.GENADULT ---
HPI - General Adult General Chief complaint: Headache Stated complaint: headahce Time Seen by Provider: 07/22/22 04:35 Source: RN notes reviewed History of Present Illness HPI narrative: Patient presents emergency department from home for right-sided facial pain. Patient states that symptoms began 1 day ago. She notes pain over her right TMJ region with pain rating up into her right frontal head and down into her right lower jaw underneath her jaw she states is associate with a feeling of pressure she denies any fevers or chills she denies any vision changes denies any ear pain states she has had some rhinorrhea but denies any sore throat. She states that she is currently on Augmentin for sinus infection that occurred on the left side and is on her eighth day of antibiotics she states that she did have influenza A last week. Patient did take Tylenol with last dose at 7 PM last night. Patient is 33 weeks denies any vaginal bleeding or discharge Related Data Home Medications Medication Instructions Recorded Confirmed polysaccharide iron complex 150 mg 150 mg PO DAILY 07/07/22 07/07/22 iron capsule Allergies Allergy/AdvReac Type Severity Reaction Status Date / Time adhesive Allergy Unknown HIVES Verified 07/07/22 11:31 azithromycin Allergy Unknown Skin Verified 07/07/22 11:31 irritation codeine Allergy Unknown tight Verified 07/07/22 11:31 chest, shallow breathing penicillin G AdvReac Intermediate Fever Verified 07/07/22 11:31 Review of Systems Review of Systems: Gen.: Denies fevers or chills Eyes: Denies eye pain or visual change ENT: See HPI Respiratory: Denies shortness of breath or cough CV: Denies chest pain or palpitations GI: Denies abdominal pain nausea, emesis or diarrhea reports Musculoskeletal: Denies back pain or muscle pain Neuro: Reports headache Skin: Denies rash Except as documented, all other systems reviewed and negative PMF Past Medical History Medical History Anxiety 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 GERD (gastroesophageal reflux disease) Hypermobility syndrome Suppression of menstruation Surgical History Surgical History Delivery by section (09/19/15) primary c/s History of cholecystectomy History of knee surgery Family History Family History Mother Hypertension Sibling Asthma Other Family history of arthritis Family history of cardiovascular disease Social History Social History Smoking status: Never smoker Second hand tobacco smoke exposure: No Smoking end date: 10/19/18 Alcohol intake: former Alcohol use details: socially when not Substance use: never Substance use type: does not use Additional living arrangements comments: mother 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 Gender identity (if verbalized by the patient): Female Sexual Orientation (if Verbalized by the Patient): Straight or Heterosexual Spiritual care concerns: No Exam Narrative: APPEARANCE: No acute distress, nontoxic, resting in bed EYES: EOMI, PERRL HEENT: Normocephalic, atraumatic, TMs clear bilaterally bilateral turbinates boggy, oral mucosa moist erythema exudate posterior pharynx full range of motion of the jaw with mild pain in the right TMJ region there is no exudate of the posterior pharynx uvula midline no trismus no sublingual or tenderness no submandibular tenderness no dental pain Neck: Supple no cervical lymphadenopathy palpated RESPIRATORY: No respiratory distress Clear to auscultation bilaterally with no rhonchi wheezing or rales. CARDIOVASCULAR: Regular rate and rhythm without murmurs rubs or gallops. ABDOMINAL: Gravid uterus palpated, nontender no re
[2022-07-22] MEDS: SODIUM CHLORIDE 0.9% IV 1,000 ML 999 ML IV CONT (05:21)
[2022-07-22 05:27] LABS: Basophils Percent Auto 0.3 % (0.2-1.2); Eosinophils Absolute Auto 0.1 K/mm3 (0-0.3); Eosinophils Percent Auto 0.8 % (0-4.4); Hematocrit 29.4 % (37.0-47.0); Hemoglobin 9.7 g/dL (12.0-15.0); Immature Granulocyte Absolute 0.04 K/mm3 (0.00-0.031); Immature Granulocyte Percent A 0.4 % (0-0.5); Lymphocytes Absolute Auto 2.72 K/mm3 (0.9-3.2); Lymphocytes Percent Auto 26.9 % (18.3-44.2); Mean Corpuscular Hemoglobin 30.3 pg (26-34); Mean Corpuscular Volume 91.9 fl (80-100); Mean Platelet Volume 10.2 fl (7.4-10.4); Monocytes Absolute Auto 0.7 K/mm3 (0.1-0.6); Monocytes Percent Auto 6.6 % (2.6-8.5); Neutrophils Absolute Auto 6.6 K/mm3 (1.3-6.7); Platelet Count Result 302 k/mm3 (150-375); Red Cell Distribution Width 12.5 % (11.5-14.5); White Blood Count 10.1 K/mm3 (4.5-10.0)
[2022-07-22 05:39] LABS: Alanine Aminotransferase 198 U/L (6-35); Albumin Level 3.6 g/dL (3.5-5.1); Alkaline Phosphatase 109 U/L (38-126); Anion Gap 7 mmol/L (8-16); Aspartate Amino Transferase 124 U/L (14-36); Bilirubin,Total 0.9 mg/dL (0.2-1.3); Blood Urea Nitrogen 5 mg/dL (7-17); Calcium 9.1 mg/dL (8.4-10.2); Carbon Dioxide 23 mmol/L (22-30); Chloride 106 mmol/L (98-107); Estimated CRCL calculation 154 ml/min; Estimated Glomerular Filt Rate > 60; Glucose 98 mg/dL (65-110); Potassium 3.6 mmol/L (3.4-5.0); Sodium 136 mmol/L (137-145)
[2022-07-22 06:08] LABS: Influenza A QL RT-PCR Positive (Negative); Influenza B QL RT-PCR Negative (Negative); SARS-CoV-2 RNA PCR Negative
[2022-07-22 08:13] VITALS: BP 99/61; PULSE 84; RESP 18; O2SAT 98
== END 2022-07-22 08:14 | disposition home or self-care (01) ==
PROVIDERS: Emergency Provider Emergency Medicine; PCP Family Medicine Adolescent Medicine
DX: O99.513 Diseases of the respiratory system complicating pregnancy, third trimester (principal); R51.9 Headache, unspecified; J32.9 Chronic sinusitis, unspecified; Z3A.33 33 weeks gestation of pregnancy; Z87.891 Personal history of nicotine dependence; Z79.51 Long term (current) use of inhaled steroids; Z20.822 Contact with and (suspected) exposure to COVID-19
CPT/HCPCS: 36415; 70450; 80053; 85025; 87636; 96361; 96365; 99284; J0131; J7030

== ENCOUNTER 2022-07-24 15:35 | Outpatient (RCR) | payer BC, SELFPAY ==
[2022-07-24 16:26] VITALS: BP 111/70; PULSE 93
[2022-07-24 16:30] VITALS: BP 115/75; PULSE 89
[2022-07-24 16:45] VITALS: BP 110/68; PULSE 83
[2022-07-24 17:00] VITALS: BP 110/60; PULSE 82
[2022-07-24 19:36] VITALS: BP 111/70; PULSE 93
== END 2022-08-23 12:49 | disposition home or self-care (01) ==
LOC: ANHOBOP 15:35
PROVIDERS: PCP Family Medicine Adolescent Medicine; Visit Provider Student in an Organized Health Care Education/Training Program
DX: O36.8330 Maternal care for abnormalities of the fetal heart rate or rhythm, third trimester, not applicable or unspecified (principal); Z3A.32 32 weeks gestation of pregnancy
CPT/HCPCS: 59025

== ENCOUNTER 2022-07-30 11:52 | Emergency (ER) | payer BC, SELFPAY ==
[2022-07-30 12:05] VITALS: BP 135/82; PULSE 90; RESP 16; TEMP 36.3; O2SAT 98
== END 2022-07-30 12:10 | disposition left against medical advice (07) ==
PROVIDERS: PCP Family Medicine Adolescent Medicine
DX: R51.9 Headache, unspecified (principal)
CPT/HCPCS: 99199

== ENCOUNTER 2022-07-31 06:21 | Observation (INO) | payer BC, SELFPAY ==
[2022-07-31] VITALS (11 sets, daily range): BP systolic 92–135; BP diastolic 51–88; PULSE 81–110; RESP 18–20; TEMP 36.8–36.9; O2SAT 96–100
--- NOTE | 2022-07-31 06:37 | PC.NURSE ---
Pt reports severe headaches every day for the past two weeks. States she completed course of antibiotics and steroids for sinus infection and felt slightly better, but not much. States the pain is most severe during the day and when it's the worst she develops blurry vision in her right eye and her scalp starts tingling. This lasts for approx one hour and then resolves on it's own. She is 33 weeks . States she saw her OB yesterday and was told everything looks good. She denies elevated blood pressure or history of pre-eclampsia with previous pregnancies. Pt rates pain 3/10 at this time. Speech is clear, ambulates with steady gait, and pupils PEARRL.
[2022-07-31 06:56] LABS: Basophils Percent Auto 0.3 % (0.2-1.2); Eosinophils Absolute Auto 0.1 K/mm3 (0-0.3); Eosinophils Percent Auto 1.2 % (0-4.4); Hematocrit 32.4 % (37.0-47.0); Hemoglobin 10.4 g/dL (12.0-15.0); Immature Granulocyte Absolute 0.04 K/mm3 (0.00-0.031); Immature Granulocyte Percent A 0.4 % (0-0.5); Lymphocytes Absolute Auto 2.97 K/mm3 (0.9-3.2); Lymphocytes Percent Auto 28.4 % (18.3-44.2); Mean Corpuscular HGB Conc 32.1 g/dl (32-36); Mean Corpuscular Hemoglobin 29.8 pg (26-34); Mean Corpuscular Volume 92.8 fl (80-100); Mean Platelet Volume 10.2 fl (7.4-10.4); Monocytes Absolute Auto 0.5 K/mm3 (0.1-0.6); Monocytes Percent Auto 4.7 % (2.6-8.5); Neutrophils Absolute Auto 6.8 K/mm3 (1.3-6.7); Platelet Count Result 359 k/mm3 (150-375); Red Blood Count 3.49 M/mm3 (4.2-5.4); Red Cell Distribution Width 12.9 % (11.5-14.5); White Blood Count 10.5 K/mm3 (4.5-10.0)
[2022-07-31 07:15] LABS: Alanine Aminotransferase 204 U/L (6-35); Albumin Level 3.7 g/dL (3.5-5.1); Alkaline Phosphatase 172 U/L (38-126); Anion Gap 8 mmol/L (8-16); Aspartate Amino Transferase 231 U/L (14-36); Bilirubin,Total 0.8 mg/dL (0.2-1.3); Blood Urea Nitrogen 6 mg/dL (7-17); CRP 1.5 mg/dL (<1.0); Calcium 9.1 mg/dL (8.4-10.2); Carbon Dioxide 25 mmol/L (22-30); Chloride 100 mmol/L (98-107); Estimated CRCL calculation 130 ml/min; Estimated Glomerular Filt Rate > 60; Glucose 122 mg/dL (65-110); Potassium 3.3 mmol/L (3.4-5.0); Sodium 133 mmol/L (137-145)
--- NOTE | 2022-07-31 07:34 | ED.HA ---
HPI - Headache General Chief Complaint: Headache Stated Complaint: headache Time Seen by Provider: 07/31/22 07:22 Related Data Home Medications Medication Instructions Recorded Confirmed polysaccharide iron complex 150 mg 150 mg PO DAILY 07/07/22 07/24/22 iron capsule Allergies Allergy/AdvReac Type Severity Reaction Status Date / Time adhesive Allergy Unknown HIVES Verified 07/31/22 06:29 azithromycin Allergy Unknown Skin Verified 07/31/22 06:29 irritation codeine Allergy Unknown tight Verified 07/31/22 06:29 chest, shallow breathing penicillin G AdvReac Intermediate Fever Verified 07/31/22 06:29 PMF Past Medical History Medical History (Updated 07/30/22 @ 14:44 by Traci Treadwell MA) Anxiety 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 GERD (gastroesophageal reflux disease) Hypermobility syndrome Pruritus of Suppression of menstruation Surgical History Surgical History Delivery by section (09/19/15) primary c/s History of cholecystectomy History of knee surgery Family History Family History Mother Hypertension Sibling Asthma Other Family history of arthritis Family history of cardiovascular disease Social History Social History Smoking status: Never smoker Second hand tobacco smoke exposure: No Smoking end date: 10/19/18 Alcohol intake: former Alcohol use details: socially when not Substance use: never Substance use type: does not use Additional living arrangements comments: mother 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 Gender identity (if verbalized by the patient): Female Sexual Orientation (if Verbalized by the Patient): Straight or Heterosexual Spiritual care concerns: No Course Vital Signs Vital signs: Vital Signs Temperature 36.9 C 07/31/22 06:26 Pulse Rate 96 07/31/22 06:26 Respiratory Rate 20 07/31/22 06:26 Blood Pressure 114/86 07/31/22 06:26 Pulse Oximetry 100 07/31/22 06:26 Oxygen Delivery Room Air 07/31/22 06:26 Temperature 36.9 C 07/31/22 06:26 Pulse Rate 84 07/31/22 07:05 Respiratory Rate 18 01/11/23 07:05 Blood Pressure 120/81 01/11/23 07:05 Pulse Oximetry 99 07/31/22 07:05 Oxygen Delivery Room Air 07/31/22 06:26 MDM - Headache Lab Data 07/31/22 06:49 07/31/22 06:49 Labs: Lab Results 07/31/22 07/31/22 Range/Units 06:49 06:49 WBC 10.5 H (4.5-10.0) K/mm3 RBC 3.49 L (4.2-5.4) M/mm3 Hgb 10.4 L (12.0-15.0) g/dL Hct 32.4 L (37.0-47.0) % MCV 92.8 (80-100) fl MCH 29.8 (26-34) pg MCHC 32.1 (32-36) g/dl RDW 12.9 (11.5-14.5) % Plt Count 359 (150-375) k/mm3 MPV 10.2 (7.4-10.4) fl Immature Gran % (Auto) 0.4 (0-0.5) % Neut % (Auto) 65.0 (45.5-73.1) % Lymph % (Auto) 28.4 (18.3-44.2) % [place] % (Auto) 4.7 (2.6-8.5) % Eos % (Auto) 1.2 (0-4.4) % Baso % (Auto) 0.3 (0.2-1.2) % Lymph # (Auto) 2.97 (0.9-3.2) K/mm3 [place] # (Auto) 0.5 (0.1-0.6) K/mm3 Eos # (Auto) 0.1 (0-0.3) K/mm3 Baso # (Auto) 0.0 (0.0-0.1) K/mm3 Abs Immat Gran (auto) 0.04 H (0.00-0.031) K/mm3 Absolute Neuts (auto) 6.8 H (1.3-6.7) K/mm3 Absolute Nucleated RBC 0.0 (0.0-0.012) K/mm3 Nucleated RBC % 0.0 (0.0-0.2) % Sodium 133 L (137-145) mmol/L Potassium 3.3 L (3.4-5.0) mmol/L Chloride 100 (98-107) mmol/L Carbon Dioxide 25 (22-30) mmol/L Anion Gap 8 (8-16) mmol/L BUN 6 L (7-17) mg/dL Creatinine 0.60 L (0.7-1.0) mg/dL Estim Creat Clear Calc 130 ml/min Estimated GFR > 60 (59 - ) Glucose 122 H (65-110) mg/dL Calcium 9.1 (8.4-10.2) mg/dL Total Bilirubin 0.8 (0.2-1.3) mg/dL AST 231 H (14-36) U/L ALT 204 H (6-35) U/L Alkaline Ph
--- NOTE | 2022-07-31 07:51 | ED.HA ---
HPI - Headache General Chief Complaint: Headache Stated Complaint: headache Time Seen by Provider: 07/31/22 07:22 Source: patient and RN notes reviewed Mode of arrival: ambulatory Limitations: no limitations History of Present Illness HPI Narrative: Patient drove herself to the emergency room, complaining of intermittent headache for the last 2 weeks. The headache is a steady at 2 out of 10 with intermittent flareup up to 10 out of 10 in the last 2 weeks. Gets worse with sitting, probably better with standing. Associated with probably nausea and vomiting. No fever, no chills, no neurodeficit. Patient is 33 weeks , 4, para 2, 1. Patient was seen by her SLATER APPRENTICE and our emergency room few days ago for the same complaint, CT scan of the head was negative. History of cholestasis , was managed by maternal specialist and patient have 2 induced labor on 36 weeks of she denies any fever or chills or urinary symptoms or abdominal pain. History of cholecystectomy. Patient does not smoke or drink or uses drugs. Currently the headache is dull, diffuse, 3 out of 10. Related Data Home Medications Medication Instructions Recorded Confirmed polysaccharide iron complex 150 mg 150 mg PO DAILY 07/07/22 07/24/22 iron capsule Allergies Allergy/AdvReac Type Severity Reaction Status Date / Time adhesive Allergy Unknown HIVES Verified 07/31/22 06:29 azithromycin Allergy Unknown Skin Verified 07/31/22 06:29 irritation codeine Allergy Unknown tight Verified 07/31/22 06:29 chest, shallow breathing penicillin G AdvReac Intermediate Fever Verified 07/31/22 06:29 Review of Systems Review of Systems: All systems reviewed & are unremarkable except as noted in HPI and below 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 GERD (gastroesophageal reflux disease) Hypermobility syndrome Pruritus of Suppression of menstruation Surgical History Surgical History Delivery by section (09/19/15) primary c/s History of cholecystectomy History of knee surgery Family History Family History Mother Hypertension Sibling Asthma Other Family history of arthritis Family history of cardiovascular disease Social History Social History Smoking status: Never smoker Second hand tobacco smoke exposure: No Smoking end date: 10/19/18 Alcohol intake: former Alcohol use details: socially when not Substance use: never Substance use type: does not use Additional living arrangements comments: mother 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 Gender identity (if verbalized by the patient): Female Sexual Orientation (if Verbalized by the Patient): Straight or Heterosexual Spiritual care concerns: No Exam Narrative: General appearance: Well-developed, well-nourished Skin: Normal color Head: Normocephalic, nontraumatic Eyes: Yellow conjunctiva ENT: Oropharynx normal, ears normal, nose normal Neck: Supple, nontender Chest and respiratory: Airway patent, no respiratory distress, no accessory muscle use Heart: Regular rate/rhythm Abdomen: Soft, nontender, no organomegaly, quiet bowel sounds Vascular: Normal peripheral pulses, normal capillary refill. Musculoskeletal: Normal range of motion, nontender back Neurologic: Alert and oriented ?3, MAIL PROCESSOR is normal as tested, no gross motor deficit Course
[2022-07-31 08:05] LABS: Appearance Urine Clear (Clear); Bilirubin Urine 1+ (Negative); Blood Urine Negative (Negative); Color Urine Yellow (Yellow); Glucose Urine UA Negative (Negative); Ketones Urine Negative (Negative); Leukocyte Esterase Ur Negative LEU/UL (Negative); Nitrate Urine Negative (Negative); Protein Urine Negative (Negative); Urobilinogen Urine 0.2 mg/dL (<2.0)
[2022-07-31 08:07] LABS: Bacteria Urine Trace /hpf; Mucus Urine Rare /lpf; RBC Urine 0-2 /hpf (0-2); Squamous Epithelial Cell Urine Moderate /hpf (Few); WBC Urine 0-3 /hpf
[2022-07-31 08:08] LABS: Add Urine Microscopic? YES
[2022-07-31 09:21] LABS: Uric Acid 4.4 mg/dL (2.5-7.5)
--- NOTE | 2022-07-31 10:02 | PM.IMHP ---
H&P: HPI History of Present Illness Date/Time: 07/31/22 10:02 Chief Complaint: Headache intrahepatic cholestasis of Narrative: 27 yo at 33w2d who presented to the ED complaining of persistent FRIAS. Patient had been dealing with persistent headaches for the past 2 weeks. Patient was previously evaluated in the emergency room and had a negative head CT scan. Patient had been taking Tylenol and Fioricet without relief of symptoms. Patient's is also complicated with cholestasis of . Patient's last bile acid was 19. She has been taking Ursodiol twice daily. Patient denied any itching. Evaluation in the emergency room revealed a doubling of her liver enzyme elevations since last evaluation. Patient was also noted to have some scleral icterus. Patient reports good movement. Patient has remained normotensive. She denies any vision changes or changes in swelling. Review of Systems Cardiovascular: Cardiovascular: Denies chest pain, Denies leg edema, Denies palpitations, Denies dyspnea and Denies dyspnea on exertion Respiratory: Respiratory: Denies cough, Denies dyspnea and Denies dyspnea on exertion Gastrointestinal: Gastrointestinal: Denies abdominal pain, Denies constipation, Denies diarrhea, Denies nausea and Denies vomiting Genitourinary: Genitourinary: Denies hematuria, Denies urinary frequency, Denies dysuria, Denies pelvic pain, Denies urinary incontinence and Denies vaginal discharge Neurologic: Reports system reviewed and no additional complaints, except as documented Psychiatric: Psychiatric: Reports no additional psychiatric complaints Endocrine: Endocrine: Denies palpitations 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 GERD (gastroesophageal reflux disease) Hypermobility syndrome Pruritus of Suppression of menstruation Surgical History Surgical History Delivery by section (09/19/15) primary c/s History of cholecystectomy History of knee surgery Family History Family History Mother Hypertension Sibling Asthma Other Family history of arthritis Family history of cardiovascular disease Social History Social History Smoking status: Never smoker Second hand tobacco smoke exposure: No Smoking end date: 10/19/18 Alcohol intake: former Alcohol use details: socially when not Substance use: never Substance use type: does not use Additional living arrangements comments: mother 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 Gender identity (if verbalized by the patient): Female Sexual Orientation (if Verbalized by the Patient): Straight or Heterosexual Spiritual care concerns: No Meds Home Medications and Allergies Home Medications Medication Instructions Recorded Confirmed Type vitamins-iron fumarate 65 1 tablet PO DAILY 60 days #60 tabs 09/14/21 07/31/22 Rx mg iron-folic acid 1 mg tablet paroxetine HCl 10 mg tablet (Paxil) 10 mg PO DAILY #90 tabs 06/03/22 07/31/22 Rx polysaccharide iron complex 150 mg 150 mg PO DAILY 07/07/22 07/31/22 History iron capsule ursodiol 500 mg tablet 500 mg PO BID #60 tabs 07/08/22 07/31/22 Rx fluticasone propionate 50 1 spray intranasal BID 5 days #16 07/22/22 07/31/22 Rx mcg/actuation nasal grams spray,suspension (24 Hour Allergy Relief) ampicillin 500 mg capsule 500 mg PO QID #28 caps 07/24/22 07/31/22 Rx qaksjyvtxe-vgjkxnlqpcmiy-lwaxnzbh 1 cap PO Q6H PRN pain #20 caps 07/24/22 07/31/22 Rx 50 mg-300 mg-40 mg capsule (Fioricet) methylprednisolone 4 mg tablets in See Rx Instructions PO PER PKG DIR 07/24/22 07/31/22 Rx a dose pack (Medrol (David)) #21 ea Allergies Allergy/Adv
--- NOTE | 2022-07-31 10:20 | PC.NURSE ---
1000- Spoke with Dr. Wagoner, he has spoken to [facility], patient to be discharged and sent to [facility] via private car.
--- NOTE | 2022-08-01 13:44 | PM.OBTRLD ---
OB - Triage/Final Diagnosis Visit Information Reason for evaluation: other (intrahepatic cholestasis of ) Comments/Additional reasons for admission: I have assessed the risk for this patient, Rafaela Bullock, and determined that she would benefit from observation care. Evaluation Laboratory results: Laboratory Tests 07/31/22 07/31/22 07/31/22 06:49 06:49 06:49 WBC 10.5 H RBC 3.49 L Hgb 10.4 L Hct 32.4 L MCV 92.8 MCH 29.8 MCHC 32.1 RDW 12.9 Plt Count 359 MPV 10.2 Immature Gran % (Auto) 0.4 Neut % (Auto) 65.0 Lymph % (Auto) 28.4 [place] % (Auto) 4.7 Eos % (Auto) 1.2 Baso % (Auto) 0.3 Lymph # (Auto) 2.97 [place] # (Auto) 0.5 Eos # (Auto) 0.1 Baso # (Auto) 0.0 Abs Immat Gran (auto) 0.04 H Absolute Neuts (auto) 6.8 H Absolute Nucleated RBC 0.0 Nucleated RBC % 0.0 Sodium 133 L Potassium 3.3 L Chloride 100 Carbon Dioxide 25 Anion Gap 8 BUN 6 L Creatinine 0.60 L Estim Creat Clear Calc 130 Estimated GFR > 60 Glucose 122 H Uric Acid 4.4 Calcium 9.1 Total Bilirubin 0.8 AST 231 H ALT 204 H Alkaline Phosphatase 172 H C-Reactive Protein 1.5 H Total Protein 8.0 Albumin 3.7 Urine Color Urine Appearance Urine pH Ur Specific [place] Urine Protein Urine Glucose (UA) Urine Ketones Ur Blood (Man) Urine Nitrate Urine Bilirubin Urine Urobilinogen Leukocyte Esterase Rfl Urine RBC Urine WBC Ur Squamous Epith Cells Urine Bacteria Urine Mucus 07/31/22 07:54 WBC RBC Hgb Hct MCV MCH MCHC RDW Plt Count MPV Immature Gran % (Auto) Neut % (Auto) Lymph % (Auto) [place] % (Auto) Eos % (Auto) Baso % (Auto) Lymph # (Auto) [place] # (Auto) Eos # (Auto) Baso # (Auto) Abs Immat Gran (auto) Absolute Neuts (auto) Absolute Nucleated RBC Nucleated RBC % Sodium Potassium Chloride Carbon Dioxide Anion Gap BUN Creatinine Estim Creat Clear Calc Estimated GFR Glucose Uric Acid Calcium Total Bilirubin AST ALT Alkaline Phosphatase C-Reactive Protein Total Protein Albumin Urine Color Yellow Urine Appearance Clear Urine pH 6.0 Ur Specific [place] 1.020 Urine Protein Negative Urine Glucose (UA) Negative Urine Ketones Negative Ur Blood (Man) Negative Urine Nitrate Negative Urine Bilirubin 1+ H Urine Urobilinogen 0.2 Leukocyte Esterase Rfl Negative Urine RBC 0-2 Urine WBC 0-3 Ur Squamous Epith Cells Moderate H Urine Bacteria Trace Urine Mucus Rare
== END 2022-07-31 10:25 | disposition home or self-care (01) ==
LOC: ANHED 08:27 → ANHOBPP 08:34
PROVIDERS: Family Medicine; Admitting Provider Student in an Organized Health Care Education/Training Program; Emergency Provider Emergency Medicine; PCP Family Medicine Adolescent Medicine; Visit Provider Student in an Organized Health Care Education/Training Program
DX: O26.613 Liver and biliary tract disorders in pregnancy, third trimester (principal); K83.1 Obstruction of bile duct; O26.893 Other specified pregnancy related conditions, third trimester; L29.9 Pruritus, unspecified; R51.9 Headache, unspecified; F41.9 Anxiety disorder, unspecified; Z3A.33 33 weeks gestation of pregnancy
CPT/HCPCS: 36415; 80053; 81001; 84550; 85025; 86140; 99285; G0378

== ENCOUNTER 2022-08-06 11:38 | Outpatient (CLI) | payer BC, SELFPAY ==
[2022-08-11 15:32] LABS: Chenodeoxycholic Acid 3.4 umol/L (< OR = 3.9); Cholic Acid 16.1 umol/L (< OR = 2.8); Deoxycholic Acid <0.5 umol/L (< OR = 2.3); Total Bile Acids 19.5 umol/L (< OR = 8.3)
== END 2022-08-06 11:39 | disposition home or self-care (01) ==
LOC: ANHLAB 11:39
PROVIDERS: PCP Family Medicine Adolescent Medicine; Visit Provider Obstetrics & Gynecology
DX: O99.719 Diseases of the skin and subcutaneous tissue complicating pregnancy, unspecified trimester (principal); L29.9 Pruritus, unspecified
CPT/HCPCS: 36415; 82542

== ENCOUNTER 2022-08-09 10:52 | Outpatient (CLI) | payer BC, SELFPAY ==
[2022-08-09 11:55] LABS: Potassium 3.9 mmol/L (3.4-5.0)
[2022-08-09 11:58] LABS: Alanine Aminotransferase 223 U/L (6-35); Albumin Level 3.6 g/dL (3.5-5.1); Alkaline Phosphatase 143 U/L (38-126); Anion Gap 6 mmol/L (8-16); Aspartate Amino Transferase 340 U/L (14-36); Bilirubin,Total 0.7 mg/dL (0.2-1.3); Blood Urea Nitrogen 8 mg/dL (7-17); Calcium 8.9 mg/dL (8.4-10.2); Carbon Dioxide 26 mmol/L (22-30); Chloride 100 mmol/L (98-107); Estimated Glomerular Filt Rate > 60; Glucose 91 mg/dL (65-110); Sodium 132 mmol/L (137-145)
== END 2022-08-09 10:53 | disposition home or self-care (01) ==
LOC: ANHLAB 10:53
PROVIDERS: PCP Family Medicine Adolescent Medicine; Visit Provider Student in an Organized Health Care Education/Training Program
DX: O26.613 Liver and biliary tract disorders in pregnancy, third trimester (principal); K83.1 Obstruction of bile duct; Z3A.00 Weeks of gestation of pregnancy not specified
CPT/HCPCS: 36415; 80053

== ENCOUNTER 2022-08-16 11:40 | Outpatient (CLI) | payer BC, SELFPAY ==
[2022-08-16 12:49] LABS: Alanine Aminotransferase 139 U/L (6-35); Albumin Level 3.3 g/dL (3.5-5.1); Alkaline Phosphatase 134 U/L (38-126); Anion Gap 4 mmol/L (8-16); Aspartate Amino Transferase 104 U/L (14-36); Bilirubin,Total 0.6 mg/dL (0.2-1.3); Blood Urea Nitrogen 7 mg/dL (7-17); Calcium 8.8 mg/dL (8.4-10.2); Carbon Dioxide 28 mmol/L (22-30); Chloride 102 mmol/L (98-107); Estimated Glomerular Filt Rate > 60; Glucose 108 mg/dL (65-110); Potassium 3.6 mmol/L (3.4-5.0); Sodium 134 mmol/L (137-145)
== END 2022-08-16 11:41 | disposition home or self-care (01) ==
LOC: ANHLAB 11:42
PROVIDERS: PCP Family Medicine Adolescent Medicine; Visit Provider Obstetrics & Gynecology
DX: O26.613 Liver and biliary tract disorders in pregnancy, third trimester (principal); K83.1 Obstruction of bile duct; Z3A.00 Weeks of gestation of pregnancy not specified
CPT/HCPCS: 36415; 80053

== ENCOUNTER 2022-08-22 09:35 | Inpatient (IN) | payer BC, SELFPAY ==
[2022-08-22] VITALS (57 sets, daily range): BP systolic 89–122; BP diastolic 47–95; PULSE 58–124; RESP 11–19; TEMP 35.7–37.2; O2SAT 95–100; BMI 38.2
--- NOTE | 2022-08-22 07:21 | WPDHPUPDATE1 ---
History and Physical Update Update Date/Time: 08/22/22 07:21 History and Physical has been reviewed, including an updated exam of the patient. There are NO changes in the patient's condition. Risks, benefits, and alternatives have been discussed and questions answered. Patient agrees to proceed with procedure.
--- NOTE | 2022-08-22 09:46 | WPDHPUPDATE1 ---
History and Physical Update Update Date/Time: 08/22/22 09:46 History and Physical has been reviewed, including an updated exam of the patient. There are NO changes in the patient's condition. Risks, benefits, and alternatives have been discussed and questions answered. Patient agrees to proceed with procedure.
[2022-08-22] MEDS: hydrOXYzine HCL 10 MG TABLET PO (10:09)
--- NOTE | 2022-08-22 10:16 | WPDANESEPPF ---
Anes - Initial Pre Proc Eval Procedure: Operation Date: 08/22/22 12:00 Proposed Procedures p Repeat Section with Tubal Ligation - Rodney Burt MD Date/Time: 08/22/22 10:16 Surgeon: Rodney Burt MD Pre Op Diagnosis: r c/s Patient Data Age: 27 Gender: F Height: Weight: Last Vital Signs Pulse 97 08/22/22 10:03 BP 122/81 08/22/22 10:03 Allergies Allergy/AdvReac Type Severity Reaction Status Date / Time codeine Allergy Severe tight Verified 08/21/22 09:37 chest, shallow breathing adhesive Allergy Intermediate HIVES Verified 08/21/22 09:37 azithromycin Allergy Mild Skin Verified 08/21/22 09:37 irritation penicillin G AdvReac Intermediate Fever Verified 08/21/22 09:37 Home Medications Medication Instructions Recorded Confirmed Type vitamins-iron fumarate 65 1 tablet PO DAILY 60 days #60 tabs 09/14/21 08/21/22 Rx mg iron-folic acid 1 mg tablet paroxetine HCl 10 mg tablet (Paxil) 10 mg PO DAILY #90 tabs 06/03/22 08/21/22 Rx polysaccharide iron complex 150 mg 150 mg PO DAILY 07/07/22 08/21/22 History iron capsule ursodiol 500 mg tablet 600 mg PO BID 08/07/22 08/21/22 History hydroxyzine HCl 10 mg tablet 10 mg PO Q6-8H #30 tabs 08/14/22 08/21/22 Rx Patient hx anesthesia problems: none Family hx anesthesia problems: none Results Review: All pre-operative results and documents have been reviewed as part of the pre-operative evaluation. 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 GERD (gastroesophageal reflux disease) Hypermobility syndrome Pruritus of Suppression of menstruation Surgical History Surgical History Delivery by section (09/19/15) primary c/s History of cholecystectomy History of knee surgery Family History Family History Mother Hypertension Sibling Asthma Other Family history of arthritis Family history of cardiovascular disease Social History Social History Smoking status: Never smoker Second hand tobacco smoke exposure: No Smoking end date: 10/19/18 Alcohol intake: former Alcohol use details: socially when not Substance use: never Substance use type: does not use Living arrangements: with family Additional living arrangements comments: mother 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/Education: 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 Gender identity (if verbalized by the patient): Female Sexual Orientation (if Verbalized by the Patient): Straight or Heterosexual Spiritual care concerns: No Anes - Eval Final PreProcedure Day of Procedure 08/22/22 10:16 Patient weight: obese Heart: regular rate and rhythm Lungs: clear to auscultation and normal air movement Airway: Mallampati scale class II Neurological: alert and oriented Last oral intake: >/= 8 hours ASA classification: II Emergent: no Anesthetic plan: proceed Anesthesia type and monitoring: regional spinal and standard monitoring Results Review: All pre-operative results and documents have been reviewed as part of the pre-operative evaluation. Informed Consent: The patient's anesthetic plan and its attendant risks and benefits were discussed with the patient/family/POA. Questions were solicited and answers provided to the satisfaction of the patient/family/POA.
[2022-08-22] MEDS: FAMOTIDINE 20 MG/2 ML VIAL IV PUSH (10:38)
[2022-08-22] MEDS: LACTATED RINGERS 1,000 ML 125 ML IV CONT (10:40)
[2022-08-22] MEDS: ceFAZolin 2 GM/D5W 50 ML 2 GM/50 ML BAG IVPB (10:42)
[2022-08-22 10:55] LABS: Basophils Percent Auto 0.2 % (0.2-1.2); Eosinophils Absolute Auto 0.1 K/mm3 (0-0.3); Eosinophils Percent Auto 1.6 % (0-4.4); Hematocrit 29.6 % (37.0-47.0); Hemoglobin 9.6 g/dL (12.0-15.0); Immature Granulocyte Absolute 0.03 K/mm3 (0.00-0.031); Immature Granulocyte Percent A 0.3 % (0-0.5); Lymphocytes Absolute Auto 2.56 K/mm3 (0.9-3.2); Lymphocytes Percent Auto 29.3 % (18.3-44.2); Mean Corpuscular HGB Conc 32.4 g/dl (32-36); Mean Corpuscular Hemoglobin 27.7 pg (26-34); Mean Corpuscular Volume 85.3 fl (80-100); Mean Platelet Volume 11.2 fl (7.4-10.4); Monocytes Absolute Auto 0.5 K/mm3 (0.1-0.6); Monocytes Percent Auto 5.5 % (2.6-8.5); Neutrophils Absolute Auto 5.5 K/mm3 (1.3-6.7); Neutrophils Percent Auto 63.1 % (45.5-73.1); Platelet Count Result 257 k/mm3 (150-375); Red Blood Count 3.47 M/mm3 (4.2-5.4); Red Cell Distribution Width 12.8 % (11.5-14.5); White Blood Count 8.7 K/mm3 (4.5-10.0)
--- NOTE | 2022-08-22 10:58 | LDADM ---
This patient, Rafaela Bullock, was admitted to Labor/Delivery/Recovery 120 on 08/22/22 at 09:35. Plans for labor, pain management and were discussed with patient. Patient/family oriented to hospital policies and general routines including ID bracelet, bed and alarms, visiting hours, pain management, procedures, bathroom and other care routines, personal items, smoking policy, room service/diet and guest tray routines, infant security routines, and visiting hours. Patient/Family are encouraged to report perceived risks to care and to ask questions if they do not understand what they are told or what they should do. See OBIX for further documentation.
[2022-08-22 11:07] LABS: Alanine Aminotransferase 97 U/L (6-35); Albumin Level 3.4 g/dL (3.5-5.1); Alkaline Phosphatase 147 U/L (38-126); Anion Gap 6 mmol/L (8-16); Aspartate Amino Transferase 114 U/L (14-36); Bilirubin,Total 0.7 mg/dL (0.2-1.3); Blood Urea Nitrogen 10 mg/dL (7-17); Calcium 9.2 mg/dL (8.4-10.2); Carbon Dioxide 23 mmol/L (22-30); Chloride 104 mmol/L (98-107); Estimated CRCL calculation 131 ml/min; Estimated Glomerular Filt Rate > 60; Glucose 77 mg/dL (65-110); Sodium 133 mmol/L (137-145)
[2022-08-22] MEDS: KETOROLAC 30 MG/ML VIAL (*BKC) IV PUSH (12:05)
--- NOTE | 2022-08-22 12:14 | PM.OBPRVD ---
OB - Delivery Note Procedure Procedure: Procedures Operation Date: 08/22/22 12:00 <No data on this case meets the specified criteria> Events: Previous Delivery and Other ( intrahepatic cholestasis of ) Route of delivery: ( with bilateral tubal ligation) Specimen: Yes Quantitative Blood Loss (ml): 510 Anesthesia type: Spinal Disposition: PACU Complications: none Narrative: patient prepped draped usual manner for. Pfannenstiel incision was made and carried down the fascia. Fascial incision was extended bilaterally the length of the skin incision and then sharply and bluntly dissected away from the rectus muscles. Rectus muscles were sharply dissected and peritoneum was entered and bladder flap developed. Uterus scored and extended the lower segment vertex delivered suctioned nasal oropharynx rest baby was delivered cord clamped cut and placenta removed manually. Uterus was exteriorized cleared of membranes and clots and closed using 0 Monocryl running interlocking manner with good approximation and hemostasis noted. Bilaterally the tube was then grasped and doubly ligated using 0 plain suture. Uterus was turned the abdomen both tubal stumps were noted be hemostatic and all subfascial tissue was also hemostatic. Fascia was approximated 0 Vicryl left angle midline right at the midline subcutaneous tissue approximated 0 plain suture and skin edges approximated using skin gagan patient was then sent to recovery in stable condition. Baby Weeks of gestation at delivery: 36 Infant gender: Female Weight (pounds): 5 Weight (ounces): 11 presentation: vertex Placenta delivery description: Manual Removal Cord Vessel Description: 3 Vessels score one minute: 8 score five minutes: 9 AMG Delivery Billing Delivery Delivery: Delivery Charge
[2022-08-22] MEDS: MORPHINE SULFATE INJ (*CRX) 10 MG/ML AMP 2 MG IV PUSH ×3 (13:03→15:05)
[2022-08-22] MEDS: METHYLERGONOVINE MALEATE 0.2 MG/ML VIAL IM (14:26)
[2022-08-22] MEDS: diphenhydrAMINE HCl INJ 50 MG/ML VIAL 25 MG IV PUSH (15:50)
[2022-08-22] MEDS: DOCUSATE SODIUM 100 MG CAPSULE PO (16:58)
[2022-08-22] MEDS: POLYSACCHARIDE IRON COMPLEX 150 MG CAPSULE PO (16:58)
[2022-08-22] MEDS: DEXTROSE 5%/0.45% SOD CHL 1,000 ML 125 ML IV CONT (16:58)
--- NOTE | 2022-08-22 17:36 | OBPPTRN ---
1602-Patient transferred to post room #281 via stretcher. Support person present. Oriented to unit, room, information board, rooming in, admission packet and security measures. Patient verbalizes understanding.
[2022-08-22] MEDS: PARoxetine 20 MG TABLET PO (20:42)
[2022-08-22] MEDS: IBUPROFEN 600 MG TABLET PO (20:42)
[2022-08-22] MEDS: HYDROcodone/acetaminophen (*CRX) 5-325 MG TABLET 1 TAB PO (20:43)
[2022-08-23] VITALS (13 sets, daily range): BP systolic 99–110; BP diastolic 55–70; PULSE 71–96; RESP 16–18; TEMP 36.6–37.3; O2SAT 97–100
[2022-08-23] MEDS: SIMETHICONE 80 MG TAB.CHEW PO ×5 (01:18→19:19)
[2022-08-23] MEDS: HYDROcodone/acetaminophen (*CRX) 5-325 MG TABLET 1 TAB PO (01:18)
[2022-08-23 05:12] LABS: Basophils Percent Auto 0.2 % (0.2-1.2); Eosinophils Absolute Auto 0.1 K/mm3 (0-0.3); Eosinophils Percent Auto 0.9 % (0-4.4); Immature Granulocyte Absolute 0.05 K/mm3 (0.00-0.031); Immature Granulocyte Percent A 0.4 % (0-0.5); Lymphocytes Absolute Auto 3.21 K/mm3 (0.9-3.2); Mean Corpuscular HGB Conc 31.9 g/dl (32-36); Mean Corpuscular Hemoglobin 28.3 pg (26-34); Mean Corpuscular Volume 88.8 fl (80-100); Mean Platelet Volume 11.6 fl (7.4-10.4); Monocytes Absolute Auto 0.7 K/mm3 (0.1-0.6); Monocytes Percent Auto 5.4 % (2.6-8.5); Neutrophils Absolute Auto 8.8 K/mm3 (1.3-6.7); Neutrophils Percent Auto 68.1 % (45.5-73.1); Platelet Count Result 215 k/mm3 (150-375); Red Blood Count 2.33 M/mm3 (4.2-5.4); Red Cell Distribution Width 12.9 % (11.5-14.5); White Blood Count 12.9 K/mm3 (4.5-10.0)
[2022-08-23 05:59] LABS: Hemoglobin 6.6 g/dL (12.0-15.0)
[2022-08-23 06:00] LABS: Hematocrit 20.7 % (37.0-47.0)
--- NOTE | 2022-08-23 07:23 | PM.OBPNVD ---
OB - PN: Subj Subjective Date/time seen: 08/23/22 07:23 Patient comments: no complaints, pain well controlled, tolerating diet and flatus present OB - PN: Obj Data Labs 08/23/22 03:45 08/22/22 09:51 Labs: Laboratory Results - last 24 hr 08/22/22 08/22/22 08/22/22 09:51 09:51 09:51 WBC 8.7 RBC 3.47 L Hgb 9.6 L Hct 29.6 L MCV 85.3 MCH 27.7 MCHC 32.4 RDW 12.8 Plt Count 257 MPV 11.2 H Immature Gran % (Auto) 0.3 Neut % (Auto) 63.1 Lymph % (Auto) 29.3 Shannon % (Auto) 5.5 Eos % (Auto) 1.6 Baso % (Auto) 0.2 Lymph # (Auto) 2.56 Shannon # (Auto) 0.5 Eos # (Auto) 0.1 Baso # (Auto) 0.0 Abs Immat Gran (auto) 0.03 Absolute Neuts (auto) 5.5 Absolute Nucleated RBC 0.0 Nucleated RBC % 0.0 Sodium 133 L Potassium 4.0 Chloride 104 Carbon Dioxide 23 Anion Gap 6 L BUN 10 Creatinine 0.60 L Estim Creat Clear Calc 131 Estimated GFR > 60 Glucose 77 Calcium 9.2 Total Bilirubin 0.7 AST 114 H ALT 97 H Alkaline Phosphatase 147 H Total Protein 7.0 Albumin 3.4 L Blood Type O Negative Antibody Screen Negative Crossmatch See Detail 08/23/22 03:45 WBC 12.9 H RBC 2.33 L Hgb 6.6 L* D Hct 20.7 L* MCV 88.8 MCH 28.3 MCHC 31.9 L RDW 12.9 Plt Count 215 MPV 11.6 H Immature Gran % (Auto) 0.4 Neut % (Auto) 68.1 Lymph % (Auto) 25.0 Shannon % (Auto) 5.4 Eos % (Auto) 0.9 Baso % (Auto) 0.2 Lymph # (Auto) 3.21 H Shannon # (Auto) 0.7 H Eos # (Auto) 0.1 Baso # (Auto) 0.0 Abs Immat Gran (auto) 0.05 H Absolute Neuts (auto) 8.8 H Absolute Nucleated RBC 0.0 Nucleated RBC % 0.0 Sodium Potassium Chloride Carbon Dioxide Anion Gap BUN Creatinine Estim Creat Clear Calc Estimated GFR Glucose Calcium Total Bilirubin AST ALT Alkaline Phosphatase Total Protein Albumin Blood Type Antibody Screen Crossmatch OB - PN A/P Plan day: 1 Plan: routine care Comments: patient doing well H/H 6.01/07. Pt asymptomatic. Pt consented for 2 units pRBC. Will recheck tomorrow AM afebrile, VSS incision C/D/I will d/c kinney catheter pt requesting pass to visit at [facility], will evaluate after transfusion continue routine post op care Time Spent With Patient Time: Total time spent is greater than 50% in coordination of care (as documented) at patient's floor/unit and/or counseling patient: Time with patient: less than 15 minutes Review of Systems Constitutional: Constitutional: Reports no additional constitutional complaints Cardiovascular: Cardiovascular: Reports no additional cardiovascular complaints Respiratory: Respiratory: Reports no additional respiratory complaints Gastrointestinal: Gastrointestinal: Reports no additional gastrointestinal complaints Genitourinary: Genitourinary: Reports no additional female genitourinary complaints Exam Const: General: comfortable and no acute distress Resp: Effort & Inspection: normal respiratory effort Auscultation: clear to auscultation bilaterally Cardio: Rate: regular rate GI: GI Palp: Yes Soft to palpation, Yes Tenderness to palpation present (GI) (around incision ) and No Guarding due to palpation present (GI) Auscultation: normal bowel sounds Other: incision C/D/I, covered with Dermabond Psych: Appearance: grossly normal Mental Status: mental status grossly normal Affect: normal affect
[2022-08-23] MEDS: HYDROcodone/acetaminophen (*CRX) 10-325 MG TABLET 1 TAB PO ×4 (08:22→19:19)
[2022-08-23] MEDS: IBUPROFEN 600 MG TABLET PO ×2 (08:23→16:07)
[2022-08-23] MEDS: MULTIVIT/MIN/PREN/FOL AC/IRON TABLET 1 TAB PO (08:24)
[2022-08-23] MEDS: SODIUM CHLORIDE 0.9% IV 250 ML 30 ML IV CONT (08:26)
[2022-08-23] MEDS: POLYSACCHARIDE IRON COMPLEX 150 MG CAPSULE PO ×2 (08:26→16:07)
[2022-08-23] MEDS: DOCUSATE SODIUM 100 MG CAPSULE PO ×2 (08:26→16:07)
--- NOTE | 2022-08-23 12:08 | WPDANLDPN2 ---
Anes-Prog Note L&D Date/Time: 08/23/22 12:08 Comfortable throughout: section Neuraxial method: spinal Epidural/Spinal procedure site: clean & non-tender Neuro status: Neuro function grossly intact. Cardiovascular status: normal Respiratory status: normal Airway patency: baseline Mental status: baseline Post-Op hydration status: normal Vital Signs: Last Vital Signs Temp 36.8 C 08/23/22 03:50 Pulse 77 08/23/22 03:50 Resp 18 08/23/22 03:50 BP 104/62 08/23/22 03:50 Pulse Ox 98 08/22/22 23:24 O2 Del Method Room Air 08/22/22 16:30 Pain score (VAS): 3/10 I/O: Intake & Output 08/22/22 08/23/22 08/23/22 23:59 07:59 15:59 Intake Total 1040 1500 Output Total 273 850 Balance 767 650 Post-procedural complaints: none Patient feedback: Patient satisfied with anesthetic care.
--- NOTE | 2022-08-23 12:09 | WPDANLDNPN2 ---
Anes-Prog Note L&D-Neuraxial Date/Time: 08/23/22 12:09 Neuraxial medications: intrathecal PF morphine Opiod-related complaints: pruritis moderate, treatment effective Patient feedback: Patient satisfied with post-operative pain management.
--- NOTE | 2022-08-23 14:53 | PC.NURSE ---
[id number] Breast pump provided by primary RN due to mothers request after using her own personal pump and separation from her infant. Instructions given on cleaning, care, usage, that there should be no pain, pumping schedule for milk production, collection, and storage of human milk. Mother was encouraged to record pumping schedule. Patient was assessed for correct placement, flange size, to pump for comfort and nipple stretching/stimulation for adequate milk production every 3 hours (8 times in 24 hours) 1-2 times at night. Mother discussed her previous delivery frustrations, successes and what she learned in the last < 12 months. Reviewed milk production, risks of delayed milk related to blood loss, encouragement to stimulate her breast with pumping, hand expression, rest, hydration and eating well. Mother understands she is getting blood soon and expressed questions and concerns, then they were discussed. Mother voiced understanding of the education shared along with mom and baby guide for additional resource information. Reported to the primary RN.
[2022-08-23 16:54] LABS: Rapid Plasma Reagin Non-Reactive (NonReactive)
--- NOTE | 2022-08-23 20:00 | PC.NURSE ---
Patient left on a pass to see baby at [facility].
[2022-08-24 01:20] VITALS: BP 110/68; PULSE 79; RESP 18; TEMP 36.6; O2SAT 100
--- NOTE | 2022-08-24 01:20 | PC.NURSE ---
Patient returned from her pass, vitals taken, pain medicine given.
[2022-08-24] MEDS: SIMETHICONE 80 MG TAB.CHEW PO ×3 (01:24→14:08)
[2022-08-24] MEDS: HYDROcodone/acetaminophen (*CRX) 10-325 MG TABLET 1 TAB PO ×2 (01:26→14:07)
[2022-08-24] MEDS: IBUPROFEN 600 MG TABLET PO ×4 (01:26→23:13)
[2022-08-24] MEDS: PARoxetine 20 MG TABLET PO ×2 (01:26→23:13)
[2022-08-24] MEDS: HYDROcodone/acetaminophen (*CRX) 5-325 MG TABLET 1 TAB PO ×4 (05:21→23:13)
[2022-08-24 05:35] LABS: Basophils Percent Auto 0.2 % (0.2-1.2); Eosinophils Absolute Auto 0.4 K/mm3 (0-0.3); Eosinophils Percent Auto 3.2 % (0-4.4); Hematocrit 28.5 % (37.0-47.0); Hemoglobin 9.2 g/dL (12.0-15.0); Immature Granulocyte Absolute 0.07 K/mm3 (0.00-0.031); Immature Granulocyte Percent A 0.5 % (0-0.5); Lymphocytes Absolute Auto 3.73 K/mm3 (0.9-3.2); Lymphocytes Percent Auto 26.9 % (18.3-44.2); Mean Corpuscular HGB Conc 32.3 g/dl (32-36); Mean Corpuscular Hemoglobin 28.8 pg (26-34); Mean Corpuscular Volume 89.1 fl (80-100); Mean Platelet Volume 10.5 fl (7.4-10.4); Monocytes Absolute Auto 0.6 K/mm3 (0.1-0.6); Monocytes Percent Auto 4.6 % (2.6-8.5); Neutrophils Percent Auto 64.6 % (45.5-73.1); Platelet Count Result 239 k/mm3 (150-375); Red Cell Distribution Width 13.6 % (11.5-14.5); White Blood Count 13.9 K/mm3 (4.5-10.0)
--- NOTE | 2022-08-24 07:44 | P.PNOB_ITS ---
OB - PN: Subj Subjective Date/time seen: 08/24/22 07:44 Interval history: Pt doing well today. Feels like she over did things yesterday and is tired and sore. She denies any continued bleeding. No other questions this morning. She would like to stay one more night. Patient comments: no complaints, pain well controlled, tolerating diet and flatus present OB - PN: Obj Data Labs 08/24/22 05:27 08/22/22 09:51 Labs: Laboratory Results - last 24 hr 08/22/22 08/22/22 08/24/22 09:51 09:51 05:27 WBC 13.9 H RBC 3.20 L Hgb 9.2 L Hct 28.5 L MCV 89.1 MCH 28.8 MCHC 32.3 RDW 13.6 Plt Count 239 MPV 10.5 H Immature Gran % (Auto) 0.5 Neut % (Auto) 64.6 Lymph % (Auto) 26.9 [place] % (Auto) 4.6 Eos % (Auto) 3.2 Baso % (Auto) 0.2 Lymph # (Auto) 3.73 H [place] # (Auto) 0.6 Eos # (Auto) 0.4 H Baso # (Auto) 0.0 Abs Immat Gran (auto) 0.07 H Absolute Neuts (auto) 9.0 H Absolute Nucleated RBC 0.0 Nucleated RBC % 0.0 RPR Non-reactive Blood Type O Negative Antibody Screen Negative Crossmatch See Detail OB - PN A/P Plan day: 1 Plan: routine care Comments: patient doing well H/H improved after transfustion, continue iron supplementation afebrile, VSS incision C/D/I continue routine post op care Time Spent With Patient Time: Total time spent is greater than 50% in coordination of care (as documented) at patient's floor/unit and/or counseling patient: Time with patient: less than 15 minutes Review of Systems Constitutional: Constitutional: Reports no additional constitutional complaints Cardiovascular: Cardiovascular: Reports no additional cardiovascular complaints Respiratory: Respiratory: Reports no additional respiratory complaints Gastrointestinal: Gastrointestinal: Reports no additional gastrointestinal complaints Genitourinary: Genitourinary: Reports no additional female genitourinary complaints Exam Const: General: comfortable and no acute distress Resp: Effort & Inspection: normal respiratory effort Auscultation: clear to auscultation bilaterally Cardio: Rate: regular rate GI: GI Palp: Yes Soft to palpation, Yes Tenderness to palpation present (GI) (around incision ) and No Guarding due to palpation present (GI) Auscu ltation: normal bowel sounds Other: incision C/D/I, covered with Dermabond Psych: Appearance: grossly normal Mental Status: mental status grossly normal Affect: normal affect
[2022-08-24 08:30] VITALS: BP 105/60; PULSE 77; RESP 20; TEMP 36.9; O2SAT 98
[2022-08-24] MEDS: POLYSACCHARIDE IRON COMPLEX 150 MG CAPSULE PO ×2 (09:04→17:34)
[2022-08-24] MEDS: DOCUSATE SODIUM 100 MG CAPSULE PO ×2 (09:04→17:34)
[2022-08-24] MEDS: MULTIVIT/MIN/PREN/FOL AC/IRON TABLET 1 TAB PO (09:04)
[2022-08-24 18:50] VITALS: BP 124/70; PULSE 89; RESP 18; TEMP 36.6; O2SAT 100
[2022-08-25] MEDS: SIMETHICONE 80 MG TAB.CHEW PO ×2 (03:27→08:17)
[2022-08-25] MEDS: HYDROcodone/acetaminophen (*CRX) 5-325 MG TABLET 1 TAB PO ×2 (03:30→08:19)
--- NOTE | 2022-08-25 08:04 | PM.OBDSVD ---
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 - DS: Summary OB Procedures : None OB Procedures Intrapartum: OB Procedures: : None Peripartum Data Infant Delivery Method: Section Procedures: Procedures Operation Date: 08/22/22 12:00 Actual Procedure Side Surgeon p Repeat Section with Tubal Ligation Not Applicable Rodney Burt MD complications: none Status at Discharge Functional status at discharge: independent ambulation Overall status at discharge: patient is progressing back to baseline Time Spent with Patient Time attestation: Total time spent providing and/or coordinating discharge services: Time spent: Less than 30 minutes Exam Const: General: comfortable and no acute distress Resp: Effort & Inspection: normal respiratory effort Auscultation: clear to auscultation bilaterally Cardio: Rate: regular rate GI: Inspection: non-distended GI Palp: Yes Soft to palpation, No Firmness to palpation present (GI), Yes Tenderness to palpation present (GI) (mild tenderness over incision ) and No Guarding due to palpation present (GI) Auscultation: normal bowel sounds Psych: Appearance: grossly normal Mental Status: mental status grossly normal DS: Data Data Completed and Pending Completed studies during hospitalization: Pending at discharge 08/22/22 13:42 Surgical [PTH] Routine Discharge Plan Discharge Attending physician on discharge: Charles Wagoner Discharging Clinician: Charles Wagoner Patient Disposition: Home, Self-Care Activity: as tolerated and pelvic rest Diet: regular Patient Instructions: Antibiotic Form, (DC) Stand Alone Forms: General Discharge Information Follow-up/Referrals: Rodney Burt MD [Physician] - Discharge Medications: New hydrocodone-acetaminophen 5-325 mg tablet 1 tablet PO Q6H PRN (Reason: pain) Qty: 28 0RF ibuprofen 600 mg Tablet 600 mg PO Q6H PRN (Reason: Cramping) Qty: 30 0RF docusate sodium 100 mg Capsule 100 mg PO BID Qty: 30 0RF Continued polysaccharide iron complex 150 mg iron capsule 150 mg PO DAILY paroxetine HCl [Paxil] 10 mg tablet 10 mg PO DAILY Qty: 90 1RF ursodiol 500 mg tablet 600 mg PO BID hydroxyzine HCl 10 mg tablet 10 mg PO Q6-8H Qty: 30 0RF vit-iron fum-folic ac 65 mg iron- 1 mg tablet 1 tablet PO DAILY 60 Days Qty: 60 0RF Date of admission: 08/22/22 09:35 Primary Care Provider: Michi Gruber Admitting Provider: Rodney Burt Attending physician on admission: Rodney Burt Condition: Stable
[2022-08-25 08:15] VITALS: BP 115/73; PULSE 83; RESP 18; TEMP 36.6; O2SAT 98
[2022-08-25] MEDS: POLYSACCHARIDE IRON COMPLEX 150 MG CAPSULE PO (08:16)
[2022-08-25] MEDS: IBUPROFEN 600 MG TABLET PO (08:17)
[2022-08-25] MEDS: MULTIVIT/MIN/PREN/FOL AC/IRON TABLET 1 TAB PO (08:17)
--- NOTE | 2022-08-25 09:11 | PC.NURSE ---
Patient viewed the discharge video Mother & Baby Care, The First Two Weeks . Patient was given the opportunity and encouraged to ask questions. Patient verbalized understanding of information shared and has been given the mother/baby guide for home reference.
== END 2022-08-25 10:35 | disposition home or self-care (01) | DRG 783 ==
LOC: ANHLDR 09:39 → ANHOB2 16:11
PROVIDERS: Student in an Organized Health Care Education/Training Program; Admitting Provider Obstetrics & Gynecology; PCP Family Medicine Adolescent Medicine; Visit Provider Obstetrics & Gynecology
PROC: 10D00Z1 Extraction of Products of Conception, Low, Open Approach (ICD-10-PCS; CPT 59514; principal; 2022-08-22 12:00)
DX: O34.211 Maternal care for low transverse scar from previous cesarean delivery (principal); K83.1 Obstruction of bile duct; O26.62 Liver and biliary tract disorders in childbirth; Z37.0 Single live birth; Z3A.36 36 weeks gestation of pregnancy; K21.9 Gastro-esophageal reflux disease without esophagitis; O99.62 Diseases of the digestive system complicating childbirth; Z30.2 Encounter for sterilization; O26.893 Other specified pregnancy related conditions, third trimester; L29.9 Pruritus, unspecified
CPT/HCPCS: 36415; 36430; 80053; 85025; 86592; 86850; 86900; 86901; 86923; 88302; A9270; J0131; J0690; J1100; J1200; J1885; J2210; J2270; J2274; J2405; J2590; J7050; J7120; P9016

== ENCOUNTER 2023-02-05 15:10 | Outpatient (CLI) | payer BC, MEDICAID, SELFPAY ==
[2023-02-05 15:49] LABS: Basophils Absolute Auto 0.1 K/mm3 (0.0-0.1); Basophils Percent Auto 0.6 % (0.2-1.2); Eosinophils Absolute Auto 0.5 K/mm3 (0-0.3); Eosinophils Percent Auto 5.9 % (0-4.4); Hematocrit 38.6 % (37.0-47.0); Hemoglobin 12.4 g/dL (12.0-15.0); Immature Granulocyte Absolute 0.02 K/mm3 (0.00-0.031); Immature Granulocyte Percent A 0.2 % (0-0.5); Lymphocytes Absolute Auto 3.29 K/mm3 (0.9-3.2); Mean Corpuscular HGB Conc 32.1 g/dl (32-36); Mean Corpuscular Hemoglobin 29.1 pg (26-34); Mean Corpuscular Volume 90.6 fl (80-100); Mean Platelet Volume 9.7 fl (7.4-10.4); Monocytes Absolute Auto 0.5 K/mm3 (0.1-0.6); Monocytes Percent Auto 5.7 % (2.6-8.5); Neutrophils Absolute Auto 4.5 K/mm3 (1.3-6.7); Neutrophils Percent Auto 50.6 % (45.5-73.1); Platelet Count Result 321 k/mm3 (150-375); Red Blood Count 4.26 M/mm3 (4.2-5.4); Red Cell Distribution Width 14.2 % (11.5-14.5); White Blood Count 8.9 K/mm3 (4.5-10.0)
[2023-02-05 16:28] LABS: Alanine Aminotransferase 31 U/L (6-35); Albumin Level 4.7 g/dL (3.5-5.1); Alkaline Phosphatase 76 U/L (38-126); Anion Gap 7 mmol/L (8-16); Aspartate Amino Transferase 29 U/L (14-36); Bilirubin,Total 0.4 mg/dL (0.2-1.3); Blood Urea Nitrogen 13 mg/dL (7-17); Calcium 9.5 mg/dL (8.4-10.2); Carbon Dioxide 28 mmol/L (22-30); Chloride 102 mmol/L (98-107); Estimated Glomerular Filt Rate > 60; Glucose 84 mg/dL (65-110); Potassium 4.3 mmol/L (3.4-5.0); Sodium 137 mmol/L (137-145)
== END 2023-02-05 15:11 | disposition home or self-care (01) ==
LOC: ANHLAB 15:11
PROVIDERS: PCP Family Medicine Adolescent Medicine; Visit Provider Nurse Practitioner Family
DX: R74.8 Abnormal levels of other serum enzymes (principal); D64.9 Anemia, unspecified
CPT/HCPCS: 36415; 80053; 82607; 84443; 85025

== ENCOUNTER 2023-12-17 16:49 | Outpatient (CLI) | payer BC, MEDICAID, SELFPAY ==
[2023-12-17 17:32] LABS: Basophils Percent Auto 0.2 % (0.2-1.2); Eosinophils Absolute Auto 0.2 K/mm3 (0-0.3); Eosinophils Percent Auto 1.3 % (0-4.4); Hemoglobin 11.4 g/dL (12.0-15.0); Immature Granulocyte Absolute 0.04 K/mm3 (0.00-0.031); Immature Granulocyte Percent A 0.3 % (0-0.5); Lymphocytes Absolute Auto 3.27 K/mm3 (0.9-3.2); Lymphocytes Percent Auto 24.4 % (18.3-44.2); Mean Corpuscular HGB Conc 31.7 g/dl (32-36); Mean Corpuscular Hemoglobin 28.1 pg (26-34); Mean Corpuscular Volume 88.9 fl (80-100); Mean Platelet Volume 9.4 fl (7.4-10.4); Monocytes Absolute Auto 0.6 K/mm3 (0.1-0.6); Monocytes Percent Auto 4.7 % (2.6-8.5); Neutrophils Absolute Auto 9.3 K/mm3 (1.3-6.7); Neutrophils Percent Auto 69.1 % (45.5-73.1); Platelet Count Result 381 k/mm3 (150-375); Red Blood Count 4.05 M/mm3 (4.2-5.4); Red Cell Distribution Width 13.2 % (11.5-14.5); White Blood Count 13.4 K/mm3 (4.5-10.0)
[2023-12-17 19:04] LABS: Iron 66 ug/dL (37-170)
[2023-12-17 19:13] LABS: Percent Iron Saturation 17 % (20-50)
[2023-12-17 21:13] LABS: Alanine Aminotransferase 52 U/L (6-35); Albumin Level 4.8 g/dL (3.5-5.1); Alkaline Phosphatase 86 U/L (38-126); Anion Gap 11 mmol/L (4-12); Aspartate Amino Transferase 40 U/L (14-36); Bilirubin,Total 0.3 mg/dL (0.2-1.3); Blood Urea Nitrogen 21 mg/dL (7-17); Calcium 8.9 mg/dL (8.4-10.2); Carbon Dioxide 21 mmol/L (22-30); Chloride 107 mmol/L (98-107); Cholesterol 149 mg/dL (0-200); Estimated Glomerular Filt Rate > 60; Glucose 89 mg/dL (65-110); HDL Direct 41 mg/dL; Potassium 4.1 mmol/L (3.4-5.0); Sodium 139 mmol/L (137-145); Triglycerides 75 mg/dL (<150)
[2023-12-17 21:21] LABS: Hemoglobin A1C 5.2 % (<5.7)
[2023-12-17 21:25] LABS: LDL Cholesterol Direct 91 mg/dL
[2023-12-19 03:43] LABS: DHEA-Sulfate 248 mcg/dL (14-349)
[2023-12-19 14:42] LABS: Insulin Level Total 14.7 uIU/mL
[2023-12-21 10:03] LABS: Testosterone Free 3.6 pg/mL (0.1-6.4); Testosterone Total 28 ng/dL (2-45)
[2024-01-07 07:33] LABS: Free Insulin 8.1
== END 2023-12-17 16:50 | disposition home or self-care (01) ==
PROVIDERS: PCP Nurse Practitioner Family; Referring Provider Nurse Practitioner Family; Visit Provider Obstetrics & Gynecology
DX: D64.9 Anemia, unspecified (principal); F34.1 Dysthymic disorder; L68.0 Hirsutism; N92.0 Excessive and frequent menstruation with regular cycle; R63.5 Abnormal weight gain; Z13.220 Encounter for screening for lipoid disorders
CPT/HCPCS: 36415; 80053; 80061; 82607; 82627; 82728; 83036; 83498; 83525; 83527; 83540; 83550; 84402; 84403; 84443; 85025

== ENCOUNTER 2024-04-22 14:46 | Emergency (ER) | payer BC, MEDICAID, SELFPAY ==
[2024-04-22 14:47] VITALS: BP 107/73; PULSE 80; RESP 16; TEMP 36.6; O2SAT 100
--- NOTE | 2024-04-22 15:47 | PC.NURSE ---
Pt approached nurses station stating I'm not having pain anymore. I talked to my day haul or farm charter bus driver who's will get me in tomorrow so I'm going to leave.
== END 2024-04-22 16:03 | disposition left against medical advice (07) ==
PROVIDERS: PCP Nurse Practitioner Family
DX: R10.32 Left lower quadrant pain (principal)
CPT/HCPCS: 99199

== ENCOUNTER 2024-04-28 10:56 | Outpatient (CLI) | payer BC, MEDICAID, SELFPAY ==
[2024-04-28 11:17] LABS: Basophils Percent Auto 0.3 % (0.2-1.2); Eosinophils Absolute Auto 0.3 K/mm3 (0-0.3); Eosinophils Percent Auto 2.8 % (0-4.4); Hematocrit 35.8 % (37.0-47.0); Hemoglobin 11.4 g/dL (12.0-15.0); Immature Granulocyte Absolute 0.03 K/mm3 (0.00-0.031); Immature Granulocyte Percent A 0.3 % (0-0.5); Lymphocytes Absolute Auto 3.48 K/mm3 (0.9-3.2); Lymphocytes Percent Auto 32.6 % (18.3-44.2); Mean Corpuscular HGB Conc 31.8 g/dl (32-36); Mean Platelet Volume 9.2 fl (7.4-10.4); Monocytes Absolute Auto 0.6 K/mm3 (0.1-0.6); Monocytes Percent Auto 5.5 % (2.6-8.5); Neutrophils Absolute Auto 6.3 K/mm3 (1.3-6.7); Neutrophils Percent Auto 58.5 % (45.5-73.1); Platelet Count Result 354 k/mm3 (150-375); Red Blood Count 4.07 M/mm3 (4.2-5.4); Red Cell Distribution Width 14.6 % (11.5-14.5); White Blood Count 10.7 K/mm3 (4.5-10.0)
== END 2024-04-28 10:57 | disposition home or self-care (01) ==
LOC: ANHLAB 10:59
PROVIDERS: PCP Nurse Practitioner Family; Visit Provider Obstetrics & Gynecology
DX: N93.9 Abnormal uterine and vaginal bleeding, unspecified (principal)
CPT/HCPCS: 36415; 84443; 85025

== ENCOUNTER 2024-04-29 09:45 | Emergency (ER) | payer BC, MEDICAID, SELFPAY ==
--- NOTE | ~2024-04-29 | XR_ITS ---
EXAMINATION: XR hand LT min 3V DATE: 04/29/2024 10:36 INDICATION: Left hand pain. TECHNIQUE: 3 views of left hand were obtained. COMPARISON: None. FINDINGS: Bone alignment is normal. No fracture. Joint spaces are normal. IMPRESSION: 1. Normal left hand. Reviewed, dictated and finalized at location A. IMPRESSION: 1. Normal left hand.
[2024-04-29 10:06] VITALS: BP 103/62; PULSE 80; RESP 20; TEMP 36.4; O2SAT 100
[2024-04-29 10:21] VITALS: BP 103/62; PULSE 80; RESP 20; TEMP 36.4; O2SAT 100
--- NOTE | 2024-04-29 16:42 | ED.UPPEXIN ---
HPI - Extremity Injury (Upper) General Chief Complaint: Extremity Injury, Upper Stated Complaint: fall, lt hand injury Time Seen by Provider: 04/29/24 10:29 Source: patient, RN notes reviewed and old records reviewed Mode of arrival: ambulatory Limitations: no limitations History of Present Illness HPI narrative: 28-year-old female to [facility] with complaint of left hand pain status post fall last night at home. Patient states that she fell in her laundry room and struck her left posterior hand on the door frame. patient denies hitting her head during the fall. Patient has treated at home with ibuprofen and ice with little relief. Patient concerned for fracture. Patient resting in exam room in no acute distress. Related Data Allergies Allergy/AdvReac Type Severity Reaction Status Date / Time codeine Allergy Severe tight Verified 04/23/24 09:48 chest, shallow breathing adhesive Allergy Intermediate HIVES Verified 04/23/24 09:48 azithromycin Allergy Mild Skin Verified 04/23/24 09:48 irritation penicillin G AdvReac Intermediate Fever Verified 04/23/24 09:48 Review of Systems Review of Systems: All systems reviewed & are unremarkable except as noted in HPI and below Constitutional: Constitutional: Reports no additional constitutional complaints Eyes: Eyes: Reports no additional eye complaints ENT: Reports system reviewed and no additional complaints, except as documented Cardiovascular: Cardiovascular: Reports no additional cardiovascular complaints, Denies chest pain and Denies dyspnea Respiratory: Respiratory: Reports no additional respiratory complaints, Denies cough and Denies dyspnea Musculoskeletal: Musculoskeletal: Reports as per HPI and Reports other ( Left dorsal lateral hand pain) Neurologic: Reports system reviewed and no additional complaints, except as documented Psychiatric: Psychiatric: Reports no additional psychiatric complaints [facility] Past Medical History Medical History Anxiety 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 GERD (gastroesophageal reflux disease) Hypermobility syndrome Menorrhagia Pruritus of Suppression of menstruation Surgical History Surgical History Delivery by section (09/19/15) primary c/s Delivery by section (08/22/22) rpt c/s with bilateral tubal ligation History of cholecystectomy History of knee surgery Family History Family History Mother Hypertension Sibling Asthma Other Family history of arthritis Family history of cardiovascular disease Social History Social History Smoking status: Current some day smoker Tobacco type: e-cigarettes/vaping Second hand tobacco smoke exposure: No Alcohol intake: current Alcohol use details: socially Substance use: never Substance use type: does not use Lack of Transportation: No Lack of Food: Never True Current Housing: I Have Housing Concerned About Future Housing: No Difficulty Paying Gas/Electric Bills: No Difficulty Paying for Meds: No Currently Unemployed: No Education: Trade/Vocational Certificate Difficulty w/ Childcare or Family Care: No Living arrangements: with family Additional living arrangements comments: lives with fiance Occupation/Education: occupation 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 There is no relevant family history pertinent to the patient complaint. Exam Cons
== END 2024-04-29 10:52 | disposition home or self-care (01) ==
PROVIDERS: Emergency Provider Nurse Practitioner Family; PCP Family Medicine Adolescent Medicine
DX: S63.92XA Sprain of unspecified part of left wrist and hand, initial encounter (principal); S66.912A Strain of unspecified muscle, fascia and tendon at wrist and hand level, left hand, initial encounter; W19.XXXA Unspecified fall, initial encounter; F17.290 Nicotine dependence, other tobacco product, uncomplicated; K21.9 Gastro-esophageal reflux disease without esophagitis; Z14.1 Cystic fibrosis carrier
CPT/HCPCS: 73130; 99213; G0463

== ENCOUNTER 2024-05-14 12:27 | Outpatient (CLI) | payer MEDICAID, SELFPAY ==
--- NOTE | ~2024-05-14 | XR_ITS ---
XR hand LT 2V Ordering provider: June Yadav APRN History: . M79.642 - Pain in left hand . Comparison: April 29, 2024 FINDINGS: BONES: No acute fracture or dislocation. JOINT SPACES: Well maintained. SOFT TISSUES: Unremarkable. IMPRESSION: No acute osseous abnormality left hand. Reviewed, dictated and finalized at location A.
--- NOTE | ~2024-05-14 | US_ITS ---
EXAMINATION: US pelvic complete w TV DATE: 05/14/2024 13:25 INDICATION: Abnormal uterine and vaginal bleeding. TECHNIQUE: Multiple transabdominal and transvaginal sonographic images of the pelvis were obtained. COMPARISON: None. FINDINGS: TRANSABDOMINAL ULTRASOUND: The uterus measures 10.3 x 5.0 x 5.5 cm. There is physiologic free fluid in the pelvis. TRANSVAGINAL ULTRASOUND: The endometrial complex measures 13 mm in thickness. The right ovary measures 3.0 x 2.1 x 2.3 cm. The left ovary is not visualized. IMPRESSION: 1. Normal uterus and right ovary. Left ovary not visualized. Reviewed, dictated and finalized at location A.
== END 2024-05-14 12:28 | disposition home or self-care (01) ==
LOC: ANHIMG 12:28
PROVIDERS: PCP Family Medicine Adolescent Medicine; Visit Provider Obstetrics & Gynecology
DX: N93.9 Abnormal uterine and vaginal bleeding, unspecified (principal); M79.642 Pain in left hand
CPT/HCPCS: 73120; 76830; 76856

== ENCOUNTER 2024-05-27 00:26 | Day surgery (SDC) | payer BC, MEDICAID, SELFPAY ==
[2024-05-18 10:22] VITALS: BMI 46.3
--- NOTE | 2024-05-18 10:29 | PC.NURSE ---
Report to the Outpatient Waiting Room, entrance under the green pavilion located off [facility], at time _0745__ on date _05/27/24_. Planned Procedure Time: _0945_.? Time changes happen often and if your time is changed the preop area will call you the afternoon before. - You and your visitor will be asked to self-screen and do not enter if you have any COVID symptoms. Please call surgeon if you need to reschedule. - A mask is optional within the hospital at this time. Patients may have clear liquids (water, carbonated beverages, clear teas, apple juice) until 3 hours prior to surgery with a maximum of 20 ounces. - No food from midnight until time of surgery and no smoking - Infants may have breast milk until 4 hours before surgery, formula 6 hours prior to surgery. - Children will be allowed to drink immediately following surgery.? If applicable, please bring a bottle or sippy cup to assist with drinking. Juice, water, soda, and popsicles are readily available.? For infants on formula, please bring formula the day of surgery.? Pacifiers are allowed. Take only the following medications with a SIP of water on the morning of surgery: _bupropion, sertraline DO NOT STOP ANY OF YOUR OTHER PRESCRIPTION MEDICATIONS PRIOR TO SURGERY EXCEPT THE FOLLOWING Medications to discontinue per physician prenatal vitamin Date to take last dose_05/23/24 Pt has not started the diclofenac. Please no make-up, nail palauan, hairspray, perfume, deodorant, or body powder the day of surgery.? No jewelry (including any body piercings) or valuables the day of surgery, leave them at home.? Please take a shower or bath the night before, or the morning of, surgery with an antibacterial soap.? Wear comfortable, loose fitting clothing.? Children are encouraged to wear pajamas. - Jewelry must be removed prior to entering the operating room.? Rings and piercings that are not removed may be cut off. - The hospital will not accept responsibility for valuables.? - Please leave all valuables, including medications, at home the day of surgery. If you are going home after surgery, a licensed fuel oil truck driver must drive you home.? - NO public transportation without another adult if you receive anesthesia. - We recommend that an adult stay with you for 24 hours following discharge. - We also recommend that you do not drive, make important decision, drink alcoholic beverages, or take any drugs that were not prescribed by your health care provider for at least 24 hours after your discharge time. For Pediatric surgeries, we recommend two adults accompany the child home. Follow any additional instructions given to you from your surgeon. Telephone instructions given to _patient_and asked if any additional questions and then verbalized understanding. Patient advised to call surgeon office or pre surgery nurse liaison [phone] if any additional questions.
--- NOTE | 2024-05-24 14:42 | PM.IMHP ---
H&P: HPI History of Present Illness Date/Time: 05/24/24 14:42 28-year-old female presents for treatment of heavy vaginal bleeding. States her cycles lasting 5-7 days with 2-3 days very heavy with clotting cramping changing a super tampon at least hourly on the heavy days. This is been an ongoing problem for her and she desires treatment. Ultrasound revealed slightly thickened endometrial cavity with uterus mildly enlarged but no specific abnormalities in the form of fibroids or other abnormalities. She declines nonsurgical management. Has had a tubal ligation in the past with the second of her 2 C sections. 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 GERD (gastroesophageal reflux disease) Hypermobility syndrome Menorrhagia Pruritus of Suppression of menstruation Surgical History Surgical History Delivery by section (09/19/15) primary c/s Delivery by section (08/22/22) rpt c/s with bilateral tubal ligation History of cholecystectomy History of knee surgery Family History Family History Mother Hypertension Sibling Asthma Other Family history of arthritis Family history of cardiovascular disease Social History Social History Smoking packs per day: 0.5 Smoking cigarettes per day: 10.0 Years smoked: 3 Smoking pack-years: 1.50 Smoking status: Never smoker Tobacco type: cigarettes and e-cigarettes/vaping Second hand tobacco smoke exposure: No Additional smoking assessment comments: vaping for 1 year Alcohol intake: former Alcohol use details: rare Substance use: never Substance use type: does not use Lack of Transportation: No Lack of Food: Never True Current Housing: I Have Housing Concerned About Future Housing: No Difficulty Paying Gas/Electric Bills: No Difficulty Paying for Meds: No Currently Unemployed: No Education: Trade/Vocational Certificate Difficulty w/ Childcare or Family Care: No Living arrangements: with family Additional living arrangements comments: lives with fiance Occupation/Education: occupation 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 Gender identity (if verbalized by the patient): Female Sexual Orientation (if Verbalized by the Patient): Straight or Heterosexual Spiritual care concerns: No Meds Home Medications and Allergies Home Medications Medication Instructions Recorded Confirmed Type bupropion HCl 150 mg 24 hr tablet, 150 mg PO QAM #90 tabs 05/14/24 05/18/24 Rx extended release diclofenac potassium 50 mg tablet 50 mg PO BID PRN pain #30 tabs 05/17/24 05/18/24 Rx [id number] 1 mg 1 tablet PO DAILY 05/18/24 05/18/24 History tablet sertraline 100 mg tablet 50 mg PO DAILY 05/18/24 05/18/24 History Allergies Allergy/AdvReac Type Severity Reaction Status Date / Time codeine Allergy Severe tight Verified 05/18/24 10:20 chest, shallow breathing adhesive Allergy Intermediate HIVES Verified 05/18/24 10:20 azithromycin Allergy Mild Skin Verified 05/18/24 10:20 irritation penicillin G AdvReac Intermediate Fever Verified 05/18/24 10:20 Exam Const: General: cooperative, healthy appearing and comfortable Resp: Effort & Inspection: normal respiratory effort Auscultation: clear to auscultation bilaterally Cardio: Rate: regular rate Rhythm: regular rhythm GI: Inspection: normal to inspection Auscultation: normal bowel sounds : External Female Exam: normal external appearance Speculum Exam - Vagina: normal appearance of the vagina Speculum Exam - Cervix: normal appearance of the cervix Bimanual exam- vagina & uterus: enlarged ( 8-10 week size) Bimanual Exam- Adnexa, other: normal adnexae Assessment and Plan Assessment and plan (1) Menorrhagia: Code(s): N92.0 - Excessive and frequent menstruation with regular cycle Status: Acute (2) History of female sterilization: Code(s): Z98.890 - Other specified postprocedural states Status: Acute Plan proceed with hysteroscopy, uterine curettings, endometrial ablation.
--- NOTE | 2024-05-27 07:20 | WPDHPUPDATE1 ---
History and Physical Update Update Date/Time: 05/27/24 07:20 History and Physical has been reviewed, including an updated exam of the patient. There are NO changes in the patient's condition. Risks, benefits, and alternatives have been discussed and questions answered. Patient agrees to proceed with procedure.
[2024-05-27 07:40] VITALS: BP 113/73; PULSE 91; RESP 14; TEMP 36.2; O2SAT 98; BMI 46.2
--- NOTE | 2024-05-27 08:09 | P.PNAN_ITS ---
Anes - Initial Pre Proc Eval Procedure: Operation Date: 05/27/24 09:45 Proposed Procedures p Hysteroscopy, Dilation and Curettage, Viky Endometrial Ablation - Rodney Burt MD Date/Time: 05/27/24 08:09 Surgeon: Rodney Burt MD Pre Op Diagnosis: menorrhagia Patient Data Age: 28 Gender: F Height: 1.57 m Weight: 115 kg Allergies Allergy/AdvReac Type Severity Reaction Status Date / Time codeine Allergy Severe tight Verified 05/18/24 10:20 chest, shallow breathing adhesive Allergy Intermediate HIVES Verified 05/18/24 10:20 azithromycin Allergy Mild Skin Verified 05/18/24 10:20 irritation penicillin G AdvReac Intermediate Fever Verified 05/18/24 10:20 Home Medications Medication Instructions Recorded Confirmed Type bupropion HCl 150 mg 24 hr tablet, 150 mg PO QAM #90 tabs 05/14/24 05/18/24 Rx extended release diclofenac potassium 50 mg tablet 50 mg PO BID PRN pain #30 tabs 05/17/24 05/18/24 Rx [id number] 1 mg 1 tablet PO DAILY 05/18/24 05/18/24 History tablet sertraline 100 mg tablet 50 mg PO DAILY 05/18/24 05/18/24 History Patient hx anesthesia problems: none Family hx anesthesia problems: none Results Review: All pre-operative results and documents have been reviewed as part of the pre- operative evaluation. 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 GERD (gastroesophageal reflux disease) Hypermobility syndrome Menorrhagia Pruritus of Suppression of menstruation Surgical History Surgical History Delivery by section (09/19/15) primary c/s Delivery by section (08/22/22) rpt c/s with bilateral tubal ligation History of cholecystectomy History of knee surgery Family History Family History Mother Hypertension Sibling Asthma Other Family history of arthritis Family history of cardiovascular disease Social History Social History (Updated 05/27/24 @ 08:09 by Los Kim MD) Smoking packs per day: 0.5 Smoking cigarettes per day: 10.0 Years smoked: 3 Smoking pack-years: 1.50 Smoking status: Current every day smoker Tobacco type: cigarettes and e-cigarettes/vaping Second hand tobacco smoke exposure: No Additional smoking assessment comments: vaping for 1 year Alcohol intake: former Alcohol use details: rare Substance use: never Substance use type: does not use Lack of Transportation: No Lack of Food: Never True Current Housing: I Have Housing Concerned About Future Housing: No Difficulty Paying Gas/Electric Bills: No Difficulty Paying for Meds: No Currently Unemployed: No Education: Trade/Vocational Certificate Difficulty w/ Childcare or Family Care: No Living arrangements: with family Additional living arrangements comments: lives with fiance Occupation/Education: occupation 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 Gender identity (if verbalized by the patient): Female Sexual Orientation (if Verbalized by the Patient): Straight or Heterosexual Spiritual care concerns: No Anes - Eval Final PreProcedure Day of Procedure 05/27/24 08:09 Patient weight: morbidly obese Heart: regular rate and rhythm Lungs: clear to auscultation Airway: Mallampati scale class II Neurological: alert and oriented Last oral intake: >/= 8 hours ASA classification: III Emergent: no Anesthetic plan: proceed Anesthesia type and monitoring: general GIVS and standard monitoring Results Review: All pre-operative results and documents have been reviewed as part of the pre- operative evaluation. Informed Consent: The patient's anesthetic plan and its attendant risks and benefits were discussed with the patient/family/POA. Questions were solicited and answers pro vided to the satisfaction of the patient/family/POA.
[2024-05-27] MEDS: ACETAMINOPHEN 500 MG TABLET 1000 MG PO (08:30)
[2024-05-27] MEDS: LACTATED RINGERS 1,000 ML 30 ML IV CONT (08:30)
[2024-05-27 08:51] LABS: BEDSIDEPREGUCG Negative (Negative)
[2024-05-27] MEDS: ceFAZolin 2 GM/D5W 50 ML 2 GM/50 ML BAG IVPB (09:41)
[2024-05-27 10:14] VITALS: BP 98/45; PULSE 74; RESP 14; O2SAT 98
--- NOTE | 2024-05-27 10:32 | W.PM.PROC2 ---
Procedure Note - Detailed Date of Procedure 05/27/24 Pre-op Diagnosis menorrhagia Post-op Diagnosis Same Procedure Performed 1. Hysteroscopy with uterine curettings 2. Endometrial ablation Surgeon Rodney Burt MD Anesthesia MAC Findings Slightly thickened endometrial cavity. No other abnormalities noted. Description of Procedure Patient prepped in usual manner for this procedure. Cervix was dilated to allow the hysteroscope to be placed which revealed findings as noted above. Uterine curettings were then obtained through all 4 quadrants as tissue sample. Viky instrument was placed, cavity assessment performed, instrument activated. At the end of the cycle hysteroscopic exam revealed excellent destruction throughout. Patient was then sent to recovery room in stable condition. Estimated Blood Loss 100 Drains No Packing No Pathology Yes Complications No immediate complications Condition Stable Disposition PACU [facility] Billing Surgery - Charge Forward: Surgery Billing
[2024-05-27] MEDS: fentaNYL CITRATE INJ (*CRX) 100 MCG/2 ML VIAL 25 MCG IV PUSH (10:38)
[2024-05-27 10:44] VITALS: BP 113/74; PULSE 68; RESP 14
[2024-05-27] MEDS: HYDROcodone/acetaminophen (*CRX) 5-325 MG TABLET 1 TAB PO (11:00)
[2024-05-27 11:20] VITALS: BP 110/70; PULSE 70; RESP 16
== END 2024-05-27 11:30 | disposition home or self-care (01) ==
PROVIDERS: PCP Family Medicine Adolescent Medicine; Visit Provider Obstetrics & Gynecology
PROC: 0U5B8ZZ Destruction of Endometrium, Via Natural or Artificial Opening Endoscopic (ICD-10-PCS; CPT 58563; principal; 2024-05-27 09:45)
DX: R93.89 Abnormal findings on diagnostic imaging of other specified body structures (principal); F41.9 Anxiety disorder, unspecified; K21.9 Gastro-esophageal reflux disease without esophagitis; M35.7 Hypermobility syndrome; F17.210 Nicotine dependence, cigarettes, uncomplicated; E66.01 Morbid (severe) obesity due to excess calories; Z68.42 Body mass index [BMI] 45.0-49.9, adult; Z98.890 Other specified postprocedural states; Z90.49 Acquired absence of other specified parts of digestive tract; Z98.51 Tubal ligation status; Z82.49 Family history of ischemic heart disease and other diseases of the circulatory system
CPT/HCPCS: 58563; 88305; A9270; J0690; J1100; J2250; J2405; J2704; J3010; J7120

== ENCOUNTER 2024-05-31 19:11 | Emergency (ER) | payer BC, MEDICAID, SELFPAY ==
--- NOTE | ~2024-05-31 | CT_ITS ---
CLINICAL INDICATION: Right upper quadrant pain for 2 months worsening in the last 48 hours COMPARISON: 02/10/2020. TECHNIQUE: Multiple contiguous axial images of the abdomen and pelvis were performed following the ad ministration of with 100 mL Omnipaque-350 intravenous contrast The dose-length product (DLP) was 1716.34 mGy-cm. Automated exposure control and iterative reconstruction technique were employed. FINDINGS/OBSERVATIONS: Visualized lower thorax: The bilateral lung bases are clear. The heart is of normal size, without pericardial effusion. Liver: The liver is enlarged measuring 20 cm in longitudinal dimension. Gallbladder and biliary system: The gallbladder is surgically absent. Pancreas: The pancreas enhances homogeneously without ductal dilatation. Spleen: The spleen enhances homogeneously and is not enlarged measuring 10 cm in longitudinal dimension. Kidneys: The bilateral kidneys enhance symmetrically without hydronephrosis or renal calculi. Adrenal glands: Unremarkable. Gastrointestinal tract: The stomach is markedly distended with retained gastric contents suggesting recent oral intake. Bowel loops are decompressed and otherwise unremarkable. Appendix: The air-filled appendix is of normal caliber (axial series, images 131-133) Vasculature: Unremarkable. Lymph nodes: No pathologically enlarged or morphologically suspicious lymph nodes within the retroperitoneum or at the root of the mesentery. Pelvic structures: The bladder is distended, and otherwise unremarkable. The uterus is anteverted and anteflexed, and otherwise unremarkable. Body wall and musculoskeletal: Small fat-containing umbilical hernia. No significant degenerative disease within the lower thoracic or lumbosacral spine. Small bone island within the vertebral body of L3. IMPRESSION: Marked distention of the stomach retained gastric contents suggesting recent oral intake. No evidence of gastric outlet obstruction. Fatty infiltration of an enlarged liver. Reviewed, dictated and finalized at location A. TESTER IMPRESSION: Marked distention of the stomach retained gastric contents suggesting recent or al intake. No evidence of gastric outlet obstruction. Fatty infiltration of an enlarged liver.
[2024-05-31 19:16] VITALS: BP 123/66; PULSE 80; RESP 14; TEMP 36.5; O2SAT 100
[2024-05-31 19:31] LABS: BEDSIDEPREGUCG Negative (Negative)
[2024-05-31 19:33] VITALS: BP 129/95; PULSE 81; RESP 12; TEMP 36.6; O2SAT 99
[2024-05-31 19:45] LABS: Basophils Percent Auto 0.3 % (0.2-1.2); Eosinophils Absolute Auto 0.4 K/mm3 (0-0.3); Eosinophils Percent Auto 3.5 % (0-4.4); Hematocrit 37.6 % (37.0-47.0); Hemoglobin 11.9 g/dL (12.0-15.0); Immature Granulocyte Absolute 0.03 K/mm3 (0.00-0.031); Immature Granulocyte Percent A 0.3 % (0-0.5); Lymphocytes Absolute Auto 3.89 K/mm3 (0.9-3.2); Lymphocytes Percent Auto 34.8 % (18.3-44.2); Mean Corpuscular HGB Conc 31.6 g/dl (32-36); Mean Corpuscular Hemoglobin 27.7 pg (26-34); Mean Corpuscular Volume 87.6 fl (80-100); Mean Platelet Volume 9.5 fl (7.4-10.4); Monocytes Absolute Auto 0.5 K/mm3 (0.1-0.6); Monocytes Percent Auto 4.2 % (2.6-8.5); Neutrophils Absolute Auto 6.4 K/mm3 (1.3-6.7); Neutrophils Percent Auto 56.9 % (45.5-73.1); Platelet Count Result 377 k/mm3 (150-375); Red Blood Count 4.29 M/mm3 (4.2-5.4); Red Cell Distribution Width 13.9 % (11.5-14.5); White Blood Count 11.2 K/mm3 (4.5-10.0)
[2024-05-31 19:50] LABS: Add Urine Microscopic? NO; Appearance Urine Clear (Clear); Bilirubin Urine Negative (Negative); Blood Urine Negative (Negative); Color Urine Yellow (Yellow); Glucose Urine UA Negative (Negative); Ketones Urine Negative (Negative); Leukocyte Esterase Ur Negative LEU/UL (Negative); Nitrate Urine Negative (Negative); Protein Urine Negative (Negative); Specific Grav Ur 1.009 (1.001-1.035); Urobilinogen Urine 0.2 mg/dL (<2.0); pH Urine 5.5 (5.0-9.0)
[2024-05-31 19:56] LABS: Alanine Aminotransferase 22 U/L (6-35); Albumin Level 4.8 g/dL (3.5-5.1); Alkaline Phosphatase 94 U/L (38-126); Anion Gap 8 mmol/L (4-12); Aspartate Amino Transferase 28 U/L (14-36); Bilirubin,Total 0.4 mg/dL (0.2-1.3); Blood Urea Nitrogen 10 mg/dL (7-17); Calcium 9.4 mg/dL (8.4-10.2); Carbon Dioxide 29 mmol/L (22-30); Chloride 101 mmol/L (98-107); Estimated CRCL calculation 112 ml/min; Estimated Glomerular Filt Rate > 60; Glucose 87 mg/dL (65-110); Lipase 46 U/L (23-300); Sodium 138 mmol/L (137-145)
[2024-05-31] MEDS: FAMOTIDINE 20 MG/2 ML VIAL IV PUSH (19:56)
[2024-05-31] MEDS: KETOROLAC 30 MG/ML VIAL (*BKC) IV PUSH (19:56)
[2024-05-31 20:44] LABS: D Dimer 0.37 ug/mL (<0.48)
[2024-05-31 21:54] VITALS: BP 114/66; PULSE 72; RESP 14; TEMP 36.4; O2SAT 99
[2024-05-31] MEDS: ACETAMINOPHEN 500 MG TABLET 1000 MG PO (23:46)
[2024-05-31 23:50] VITALS: BP 100/63; PULSE 71; RESP 16; TEMP 36.6; O2SAT 99
--- NOTE | 2024-06-01 00:14 | ED_ITS ---
HPI - Abdominal Pain General Chief Complaint: Abdominal Pain Stated Complaint: right rib pain comparable to gallbladder-doesnt aguilar Time Seen by Provider: 05/31/24 19:35 History of Present Illness HPI narrative: 28-year-old female presents to the emergency department for pain to her right upper quadrant/right inferior rib area intermittently for the past several months, worsening over the past couple days. Patient states she had cereal this morning consistent her pain is more constant which prompted her to come to the ED. she admits having a cholecystectomy when she was 15 years old. She reports associated nausea, no vomiting, no diarrhea. Denies fever, cough or congestion, hemoptysis, history of VTE. Of note patient did have a uterine ablation performed 3 days ago without complications. She has not had any uterine bleeding. Related Data Home Medications Medication Instructions Recorded Confirmed fliixmuk-jyg-Mt-FA 1 mg 1 tablet PO DAILY 05/18/24 05/27/24 tablet sertraline 100 mg tablet 50 mg PO DAILY 05/18/24 05/27/24 Allergies Allergy/AdvReac Type Severity Reaction Status Date / Time codeine Allergy Severe tight Verified 05/27/24 08:48 chest, shallow breathing adhesive Allergy Intermediate HIVES Verified 05/27/24 08:48 azithromycin Allergy Mild Skin Verified 05/27/24 08:48 irritation penicillin G AdvReac Intermediate Fever Verified 05/27/24 08:48 Review of Systems Review of Systems: All systems reviewed & are unremarkable except as noted in HPI and below 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 GERD (gastroesophageal reflux disease) Hypermobility syndrome Menorrhagia Pruritus of Suppression of menstruation Surgical History Surgical History Delivery by section (09/19/15) primary c/s Delivery by section (08/22/22) rpt c/s with bilateral tubal ligation History of cholecystectomy History of hysteroscopy (05/27/24) Hysteroscopy with uterine curettings/ Endometrial ablation / Benign patholog y History of knee surgery Family History Family History Mother Hypertension Sibling Asthma Other Family history of arthritis Family history of cardiovascular disease Social History Social History Smoking packs per day: 0.5 Smoking cigarettes per day: 10.0 Years smoked: 3 Smoking pack-years: 1.50 Smoking status: Current every day smoker Tobacco type: cigarettes and e-cigarettes/vaping Second hand tobacco smoke exposure: No Additional smoking assessment comments: vaping for 1 year Alcohol intake: former Alcohol use details: rare Substance use: never Substance use type: does not use Lack of Transportation: No Lack of Food: Never True Current Housing: I Have Housing Concerned About Future Housing: No Difficulty Paying Gas/Electric Bills: No Difficulty Paying for Meds: No Currently Unemployed: No Education: Trade/Vocational Certificate Difficulty w/ Childcare or Family Care: No Living arrangements: with family Additional living arrangements comments: lives with fiance Occupation/Education: occupation 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 HEAD: Normocephalic, atraumatic. EYES: PERRLA and EOMI. ENT: Nares clear, no rhinorrhea or epistaxis. Mucous membranes moist. NECK: Supple. CHEST: Clear to auscultation. No respiratory distress. No tenderness to chest wall HEART: Regular rate and rhythm. No murmur heard. Normal peripheral pulses. ABDOMEN: Normoactive bowel sounds. Abdomen soft with tenderness in the right upper quadrant. No rebound guarding rigidity. No CVA tenderness. EXTREMITIES: Normal range of motion. No edema. SKIN: Warm, dry, no rash. NEURO: No focal deficits. Alert and oriented x3 Course Vital Signs Vital signs: Vital Signs Temperature 97.7 F 05/31/24 19:16 Pulse Rate 80 05/31/24 19:16 Respiratory Rate 14 05/31/24 19:16 Blood Pressure 123/66 05/31/24 19:16 Pulse Oximetry 100 05/31/24 19:16 Oxygen Delivery Room Air 05/31/24 19:16 Temperature 98 F 05/31/24 23:50 Pulse Rate 71 05/31/24 23:50 Respiratory Rate 16 05/31/24 23:50 Blood Pressure 100/63 05/31/24 23:50 Pulse Oximetry 99 05/31/24 23:50 Oxygen Delivery Room Air 05/31/24 19:16 MDM - Abdominal Pain MDM Narrative Medical decision making narrative: 28-year-old female presents to the emergency department for right upper quadrant abdominal pain/right inferior rib pain for several months intermittently, worsening over the past couple of days. Triage vitals are stable. She is afebrile nontoxic appearing. Exam is significant for the above. Workup reveals nonspecific leukocytosis 11.2, no bandemia. Chemistries are unremarkable. LFTs are normal. Bilirubin normal at 0.4. Urinalysis is unremarkable. is negative. Lipase is normal. D-dimer is 0.37, wells score is low risk. CT abdomen pelvis shows marked distention of the stomach retained gastric contents suggesting recent oral intake. There is no evidence of gastric outlet obstruction. There is fatty infiltration of an enlarged liver. Patient updated on workup. She received Pepcid, Toradol and Tylenol. Upon re- evaluation she is resting comfortably in exam bed. Advised her to take Tylenol ibuprofen as needed for pain and follow-up closely with her PCP. Strict ED return precautions discussed. She is agreeable with the plan verbalized unde rstanding. Discharged in stable condition. Lab Data 05/31/24 19:29 05/31/24 19:29 Labs: Lab Results 05/31/24 05/31/24 Range/Units 19:29 20:16 WBC 11.2 H (4.5-10.0) K/mm3 RBC 4.29 (4.2-5.4) M/mm3 Hgb 11.9 L (12.0-15.0) g/dL Hct 37.6 (37.0-47.0) % MCV 87.6 (80-100) fl MCH 27.7 (26-34) pg MCHC 31.6 L (32-36) g/dl RDW 13.9 (11.5-14.5) % Plt Count 377 H (150-375) k/mm3 MPV 9.5 (7.4-10.4) fl Immature Gran % (Auto) 0.3 (0-0.5) % Neut % (Auto) 56.9 (45.5-73.1) % Lymph % (Auto) 34.8 (18.3-44.2) % [place] % (Auto) 4.2 (2.6-8.5) % Eos % (Auto) 3.5 (0-4.4) % Baso % (Auto) 0.3 (0.2-1.2) % Lymph # (Auto) 3.89 H (0.9-3.2) K/mm3 [place] # (Auto) 0.5 (0.1-0.6) K/mm3 Eos # (Auto) 0.4 H (0-0.3) K/mm3 Baso # (Auto) 0.0 (0.0-0.1) K/mm3 Abs Immat Gran (auto) 0.03 (0.00-0.031) K/mm3 Absolute Neuts (auto) 6.4 (1.3-6.7) K/mm3 Absolute Nucleated RBC 0.000 (0.0-0.012) K/mm3 Nucleated RBC % 0.0 (0.0-0.2) % D-Dimer 0.37 (<0.48) ug/mL Sodium 138 (137-145) mmol/L Potassium 4.0 (3.4-5.0) mmol/L Chloride 101 (98-107) mmol/L Carbon Dioxide 29 (22-30) mmol/L Anion Gap 8 (4-12) mmol/L BUN 10 D (7-17) mg/dL Creatinine 0.80 (0.7-1.0) mg/dL Estim Creat Clear Calc 112 ml/min Estimated GFR > 60 (59 - ) Glucose 87 (65-110) mg/dL Calcium 9.4 (8.4-10.2) mg/dL Total Bilirubin 0.4 (0.2-1.3) mg/dL AST 28 (14-36) U/L ALT 22 (6-35) U/L Alkaline Phosphatase 94 (38-126) U/L Total Protein 9.0 H (6.3-8.2) g/dL Albumin 4.8 (3.5-5.1) g/dL Lipase 46 (23-300) U/L Urine Color Yellow (Yellow) Urine Appearance Clear (Clear) Urine pH 5.5 (5.0-9.0) Ur Specific [place] 1.009 (1.001-1.035) Urine Protein Negative (Negative) mg/dL Urine Glucose (UA) Negative (Negative) mg/dL Urine Ketones Negative (Negative) mg/dL Ur Blood (Man) Negative (Negative) Urine Nitrate Negative (Negative) Urine Bilirubin Negative (Negative) Urine Urobilinogen 0.2 (<2.0) mg/dL Leukocyte Esterase Rfl Negative (Negative) ALEJANDRA/UL POC Urine HCG, Qual Negative (Negative) Imaging Data Radiologist's impression: ITS Impressions Abdomen/Pelvis CT 05/31/24 23:48 IMPRESSION: Marked distention of the stomach retained gastric contents suggesting recent oral intake. No evidence of gastric outlet obstruction. Fatty infiltration of an enlarged liver. Discharge Plan Discharge Clinical Impression: Right upper quadrant abdominal pain, Fatty infiltration of liver Patient Disposition: Home, Self-Care Condition: Stable Instructions: Antibiotic Form, Abdominal Pain (ED) Additional Instructions: Your evaluated in the emergency department for right upper quadrant abdominal pain/right inferior rib pain. Your workup here shows fatty infiltration of your liver and enlarged liver. Your CT shows a large amount of gastric content in her stomach. Please follow-up closely with her primary care provider. Eat small meals. Drink plenty of fluids. Take Tylenol and ibuprofen as needed [id number] for your symptoms. Return to the emergency department if he develops significantly worsening pain, fever, your unable to tolerate food or fluids, or other concerning symptoms. Prescriptions: No Action bupropion HCl 150 mg tablet extended release 24 hr 150 mg PO QAM Qty: 90 0RF azmzfssd-vsm-Gx-FA 1 mg Tablet 1 tablet PO DAILY sertraline 100 mg tablet 50 mg PO DAILY ibuprofen 600 mg tablet 600 mg PO TID Qty: 20 0RF diclofenac potassium 50 mg tablet 50 mg PO BID PRN (Reason: pain) Qty: 30 0RF Follow-up/Referrals: Michi Gruber MD [Primary Care Provider] -
== END 2024-06-01 00:31 | disposition home or self-care (01) ==
PROVIDERS: Emergency Medicine; Emergency Provider Physician Assistant; PCP Family Medicine Adolescent Medicine
DX: R10.11 Right upper quadrant pain (principal); K76.0 Fatty (change of) liver, not elsewhere classified; K21.9 Gastro-esophageal reflux disease without esophagitis; F41.9 Anxiety disorder, unspecified; F17.210 Nicotine dependence, cigarettes, uncomplicated; F17.290 Nicotine dependence, other tobacco product, uncomplicated; Z90.49 Acquired absence of other specified parts of digestive tract; Z79.899 Other long term (current) drug therapy
CPT/HCPCS: 36415; 74177; 80053; 81003; 81025; 83690; 85025; 85380; 96374; 96375; 99284; A9270; J1885; Q9967

== ENCOUNTER 2024-09-17 14:42 | Outpatient (CLI) | payer OTHER, SELFPAY ==
[2024-09-17 15:13] LABS: Basophils Percent Auto 0.3 % (0.2-1.2); Eosinophils Absolute Auto 0.3 K/mm3 (0-0.3); Eosinophils Percent Auto 2.8 % (0-4.4); Hematocrit 37.7 % (37.0-47.0); Immature Granulocyte Absolute 0.02 K/mm3 (0.00-0.031); Immature Granulocyte Percent A 0.2 % (0-0.5); Lymphocytes Absolute Auto 3.06 K/mm3 (0.9-3.2); Lymphocytes Percent Auto 30.9 % (18.3-44.2); Mean Corpuscular HGB Conc 31.8 g/dl (32-36); Mean Corpuscular Volume 87.9 fl (80-100); Mean Platelet Volume 9.8 fl (7.4-10.4); Monocytes Absolute Auto 0.7 K/mm3 (0.1-0.6); Monocytes Percent Auto 6.9 % (2.6-8.5); Neutrophils Absolute Auto 5.8 K/mm3 (1.3-6.7); Neutrophils Percent Auto 58.9 % (45.5-73.1); Platelet Count Result 319 k/mm3 (150-375); Red Blood Count 4.29 M/mm3 (4.2-5.4); Red Cell Distribution Width 14.5 % (11.5-14.5); White Blood Count 9.9 K/mm3 (4.5-10.0)
[2024-09-17 15:29] LABS: Alanine Aminotransferase 23 U/L (6-35); Albumin Level 4.4 g/dL (3.5-5.1); Alkaline Phosphatase 82 U/L (38-126); Anion Gap 11 mmol/L (4-12); Aspartate Amino Transferase 23 U/L (14-36); Bilirubin,Total 0.3 mg/dL (0.2-1.3); Blood Urea Nitrogen 10 mg/dL (7-17); Carbon Dioxide 28 mmol/L (22-30); Chloride 102 mmol/L (98-107); Estimated Glomerular Filt Rate > 60; Glucose 71 mg/dL (65-110); Potassium 3.7 mmol/L (3.4-5.0); Sodium 141 mmol/L (137-145)
[2024-09-17 15:32] LABS: Rheumatoid Factor < 12.0 IU/ML (<12)
[2024-09-17 15:50] LABS: Vitamin D 25 Hydroxy 27.4 ng/mL
[2024-09-17 15:52] LABS: Erythrocyte Sedimentation Rate 22 mm/hr (0-20)
[2024-09-20 16:57] LABS: Anti Cyclic Citrullinated Pept <16 UNITS
== END 2024-09-17 14:43 | disposition home or self-care (01) ==
LOC: ANHLAB 14:43
PROVIDERS: PCP Family Medicine Adolescent Medicine; Visit Provider Nurse Practitioner Family
DX: R53.83 Other fatigue (principal); M79.10 Myalgia, unspecified site; M25.50 Pain in unspecified joint; R21 Rash and other nonspecific skin eruption
CPT/HCPCS: 36415; 80053; 82306; 82607; 84443; 85025; 85652; 86038; 86039; 86200; 86430

== ENCOUNTER 2024-11-08 18:04 | Emergency (ER) | payer OTHER, SELFPAY ==
[2024-11-08 18:13] VITALS: BP 130/71; PULSE 86; RESP 20; TEMP 36.4; O2SAT 100
--- OUTSIDE RECORDS SUMMARY | 2024-11-08 18:26 | XMS_ITS | Clinical Summary ---
Author Organization [facility] Address [address] [place] [address] Care Team Providers Care Senior Web Applications Developer Name Role Phone Michi Gruber MD Primary Care Provider + Source Comments [facility],non-owned Affiliates and Associated Physician Practices is amultiple site organization consisting of ambulatory clinics and hospital sitesin [place], [place], [place] and [place]. This disclosure is being madepursuant to the Care Everywhere program and may not contain all information available regarding this patient. Last updated 18.[facility] Allergies Active Allergy Reactions Criticality Noted Date Comments Codeine Other 05/28/2021 Chest Pain Penicillins Urticaria Medium 09/04/2021 Skin Adhesives Urticaria Medium 07/24/2022 Azithromycin Urticaria Medium 05/28/2021 Medications * This document contains information received from the source organization and may not represent a complete record from that organization. * Be aware that medications may not be up to date on this document. Alwaysverify current medications with the patient. sertraline (ZOLOFT) 50 MG tabletIndicatio ns: depression with past hx of depression Take 50 mg by mouth once daily Reasons: depression with past hx of depression Active Vit-DSS-Fe Fum-FA ( VITAMIN WITH IRON) tabletIndicatio ns: Take 1 (one) tablet by mouth once daily Reasons: Active ferrous sulfate 325 (65 FE) MG tabletIndicatio ns:Iron Deficiency Anemia Take 1 (one) tablet by mouth once daily Reasons: Anemia From Inadequate Iron in the Body Active butalbital-acet aminophen-caffe ine (Fioricet) 50-325-40 MG tablet Take 1 (one) tablet by mouth every 4 hours as needed for Headache Active PARoxetine (Paxil) 10 MG tabletIndicatio ns:Generalized Anxiety Disorder,Major Depressive Disorder Take 1 (one) tablet by mouth once daily Reasons: Generalized Anxiety Disorder, Major Depressive Disorder Active SUMAtriptan (Imitrex) 50 MG tablet Take 1 (one) tablet by mouth daily as needed - may repeat one time for Migraine Maximum daily dose: 200mg/24 hours 30 tablet 3 Active ursodiol (Actigall) 300 MG capsule Take 2 (two) capsules by mouth 2 times daily with morning and evening meal 60 capsule 3 Active guaiFENesin ER 12hr (Mucinex) 600 MG tablet Take 1 (one) tablet by mouth every 12 hours 60 tablet 3 Active Active Problems Problem Noted Date Diagnosed Date Elevated liver enzymes 09/04/2021 Overview (09/04/2021): LFT's Labs & CBC: AST: ALT: Bile acids: Platelets: 08/09 208 279 08/10 223 263 340 08/16 197 217 08/31 98 101 pending Obesity, Class III, BMI 40-49.9 (morbid obesity) 05/29/2021 Previous section 05/28/2021 Cystic fibrosis carrier 05/28/2021 Overview (05/28/2021): Per patient- No test results to confirm. Resolved Problems Problem Noted Date Diagnosed Date Resolved Date 32 weeks gestation of 06/20/2021 09/03/2021 Encounter for anatomic survey 05/28/2021 09/03/2021 22 weeks gestation of 05/28/2021 08/01/2021 Overview (05/28/2021): O Neg; Ab: Negative, Rub: Immune, RPR-NR, HBsag-Neg, HIV-Neg H/h/p: 12.3, 37.2, 285 CMV & Parvo: Immune 05/07/21: 1 hr GTT: 142; pt sent for 3hr GTT Family History Medical History Relation Name Comments Thyroid Disease Father Hypertension Maternal Grandfather Leukemia Maternal Grandmother Other - Cardiac Maternal Grandmother Hypertension Mother Hypertension Paternal Grandfather Other - Cardiac Paternal Grandfather Hypertension Paternal Grandmother Relation Name Status Comments Father Alive Maternal Grandfather Maternal Grandmother Mother Alive Paternal Grandfather Paternal Grandmother Social History Tobacco Use Types Packs/Day Years Used Date Smoking Tobacco: Former Smokeless Tobacco: Never Tobacco Cessation:Counseling Given: Not Answered Alcohol Use Standard Drinks/Week Comments Not Currently 0 (1 standard drink = 0.6 oz pur e alcohol) Overall Financial Resource Strain (CARDIA) Answe r Date Recorded How hard is it for you to pa y for the very basics like food, housing, medical care, and heating? Not hard at all 07/31/2022 [facility] - Occupational Stress Questionnaire Answer Date Recorded Do you feel stress - tense, restless, nervous, or anxious, or unable to sleep at night because your mind is troubled all the time - these days? Not at all 07/31/2022 Hunger Vital Sign Answer Date Recorded Within the past 12 months, y ou worried that your food would run out before you got the money to buy more. Never true 07/31/19 23 Within the past 12 months, t he food you bought just didn't last and you didn't have money to get more. Never true 07/31/2022 PRAPARE - Transportation Answer Date Re corded In the past 12 months, has l ack of transportation kept you from medical appointments or from getting medications? No 07/21 In the past 12 months, has l ack of transportation kept you from meetings, work, or from getting things needed for daily living? No 07/31/2022 Housing Stability Vital Sign Answer Leoy e Recorded In the last 12 months, was t here a time when you were not able to pay the mortgage or rent on time? Yes 07/31/2022 In the last 12 months, how many places have you lived? 1 07/31/2022 In the last 12 months, was t here a time when you did not have a steady place to sleep or slept in a jail (including now)? No 07/31/2022 Comments No Sex and Gender Information Value Date Recorded Sex Assigned at Not on file Legal Sex Female 5:45 AM MACHINE MAINTENANCE TECHNICIAN Gender Identity Not on file Sexual Orientation Not on file Last Filed Vital Signs Vital Sign Reading Time Taken Comments Blood Pressure 112/73 08/16/2022 11:25 AM MACHINE MAINTENANCE TECHNICIAN Pulse 108 08/16/2022 11:25 AM MACHINE MAINTENANCE TECHNICIAN Temperature 36.5 C (97.7 F) 08/01/2022 12:05 PM MACHINE MAINTENANCE TECHNICIAN Respiratory Rate 20 08/01/2022 12:0 5 PM MACHINE MAINTENANCE TECHNICIAN Oxygen Saturation 99% 08/01/2022 12: 05 PM MACHINE MAINTENANCE TECHNICIAN Inhaled Oxygen Concentration - - Weight 92.4 kg (203 lb 12.8 oz) 023 11:13 AM MACHINE MAINTENANCE TECHNICIAN Height 157.5 cm (5' 2 ) 07/31/2022 11:1 3 AM MACHINE MAINTENANCE TECHNICIAN Body Mass Index 37.28 07/31/2022 11:13 AM MACHINE MAINTENANCE TECHNICIAN Plan of Treatment Health Maintenance Due Date Last Done Comments PAP SMEAR 1997 HIV SCREENING 2012 DTAP/TDAP/TD VACCINES (1 - Tdap) 2016 HEPATITIS B VACCINE (1 of 3 - 19+ 3-dose series) 2016 COVID-19 VACCINE (2 - 2023-2 5 season) 2024 01/15/2021 DEPRESSION SCREENING 07/21/2024 INFLUENZA VACCINE (Season Ended) 2025 ZOSTER VACCINE (1 of 2) 2047 HEPATITIS C SCREENING Completed 07/31/2022 HIB VACCINE Aged Out No longer eligi ble based on patient's age to complete this topic HPV VACCINE Aged Out No longer eligi ble based on patient's age to complete this topic MENINGOCOCCAL (Group B) VACC INE SHARED DECISION-MAKING Aged Out No longer eligibl e based on patient's age to complete this topic MENINGOCOCCAL GROUPS A/C/Y/W VACCINE Aged Out No longer eligible b ased on patient's age to complete this topic PNEUMOCOCCAL VACCINE Aged Out No long er eligible based on patient's age to complete this topic Procedures Procedure Name Priority Date/Time Associated Diagnosis Comments HEPATITIS SCREEN ACUTE STAT 07/31/2022 11:39 AM MACHINE MAINTENANCE TECHNICIAN Elevated liver enzymes from Last 3 Months or Most Recently Relevant to Health Maintenance Results * HEPATITIS SCREEN ACUTE (07/31/2022 11:39 AM MACHINE MAINTENANCE TECHNICIAN) HAV Antibody IgM Non Reactive Non Reactive 07/31/2022 12:53 PM MACHINE MAINTENANCE TECHNICIAN [facility] HBsAg Non Reactive Non Reactive 07/31/2022 12:53 PM MACHINE MAINTENANCE TECHNICIAN [facility] HBc Antibody IgM Non Reactive Non Reactive 07/31/2022 12:53 PM MACHINE MAINTENANCE TECHNICIAN [facility] HCV Antibody Screen Non Reactive Non Reactive 07/31/2022 12:53 PM MACHINE MAINTENANCE TECHNICIAN [facility] Blood BLOOD SPECIMEN / Unknown Venipuncture / Unknown 07/31/2022 11:39 AM MACHINE MAINTENANCE TECHNICIAN 07/31/2022 11:50 AM MACHINE MAINTENANCE TECHNICIAN Narrative [facility] - 07/31/2022 12:53 PM MACHINE MAINTENANCE TECHNICIAN Non Reactive - Antibodies to Hepatitis C virus (HCV) were not detected, result does not exclude early acute HCV infection. Herb Burgess MD LAB - CHEMISTRY ORDERABLES Final Result Performing Organization Address City/State/[facility] Co de Phone Number [facility] [address] [place], [place] [phone] from Last 3 Months or Most Recently Relevant to Health Maintenance Insurance MEDICAID - [place] SELF PAY NO INSURANCE Member Subscriber Plan / Payer (Ef fective for All Dates) Name:Kleber Arciniega Member ID:Not on file Relation to Subscriber:Not on file Name:KLEBER ARCINIEGA Subscriber ID:Not on file (Home) Address: [facility] [address] [place] [id number] Payer ID:Not on file Group ID:Not on file Type:Self Pay Address: [place], [place] Advance Directives * Full Code (Latest Code Status on File) Date Activated Date Inactivated Comments 07/31/2022 3:05 PM 08/01/2022 7:38 PM Care Teams Senior Web Applications Developer Relationship Specialty Start Date End Date Michi Gruber MD [address] [address] PCP - General 09/19/21
--- OUTSIDE RECORDS SUMMARY | 2024-11-08 18:26 | XMS_ITS | Clinical Summary ---
Author Organization [facility] Address [address] [place] [address] Phone Care Team Providers Care Forestry Technical Officer Name Role Phone Michi Gruber MD Primary Care Provider +1- [phone] Allergies Active Allergy Reactions Criticality Noted Date Comments Adhesive Tape-Silicones Hives High 02/13/2018 Azithromycin Hives High 09/28/2017 Codeine Anxiety Low 09/28/2017 Medications vits15/iron/foli c/dss ( VIT 79-EQZY-YBOGY-DS S ORAL) Take by mouth. Active ferrous sulfate 134 mg (27 mg iron) Tablet Take 134 mg by mouth. Active ursodioL (CHELA) 500 mg tablet Take by mouth. Active ampicillin (PRINCIPEN) 250 mg Capsule Take by mouth every 6 hours. Active PARoxetine HCl (PAXIL) 10 mg tablet Take 10 mg by mouth daily. Active buPROPion HCL (WELLBUTRIN SR) 150 mg Sustained Release 12 hour tablet Take 150 mg by mouth 2 times daily. Active sertraline (ZOLOFT) 100 mg tablet Take 100 mg by mouth daily. Active metoclopramide HCl (REGLAN) 10 mg tablet Take 1 Tablet (10 mg) by mouth 4 times daily as needed for Nausea/Emes is. 15 Tablet 06/02/2024 Active Active Problems Problem Noted Date Diagnosed Date Headache in , antepartum, third trimest er 07/30/2022 Pressure and pain of right side of face 07/30/19 23 Morbid obesity with body mass index of 40.0-49.9 01/28/2019 Bloody discharge from right nipple 01/28/2019 Nicotine dependence 01/28/2019 Streptococcal tonsillitis 02/14/2018 Tobacco use 09/28/2017 Syncope Resolved Problems Problem Noted Date Diagnosed Date Resolved Date Abnormal ultrasound of breast 02/09/2019 05/21/2019 Encounters Date Type Department Care Team Description 10/19/2024 External Device Data STL ABSTRACTION Provider, Abstract 10/19/2024 External Device Data [facility] ABSTRACTION Provider, Abstract 10/06/2024 External Device Data [facility] ABSTRACTION Provider, Abstract 09/28/2024 External Device Data [facility] ABSTRACTION Provider, Abstract 09/28/2024 External Device Data [facility] ABSTRACTION Provider, Abstract 09/28/2024 External Device Data [facility] ABSTRACTION Provider, Abstract 09/27/2024 External Device Data [facility] ABSTRACTION Provider, Abstract 09/07/2024 External Device Data [facility] ABSTRACTION Provider, Abstract 09/07/2024 External Device Data [facility] ABSTRACTION Provider, Abstract 08/31/2024 External Device Data [facility] ABSTRACTION Provider, Abstract 08/12/2024 External Device Data [facility] ABSTRACTION Provider, Abstract 08/11/2024 External Device Data [facility] ABSTRACTION Provider, Abstract 08/10/2024 External Device Data [facility] ABSTRACTION Provider, Abstract from Last 3 Months Social History Tobacco Use Types Packs/Day Years Used Date Smoking Tobacco: Former Cigarettes Q uit: 10/19/2018 Smokeless Tobacco: Never Alcohol Use Standard Drinks/Week Comments Yes 0 (1 standard drink = 0.6 oz pur e alcohol) Feeling Safe Answer Date Recorded Are you in a relationship wi th someone who hurts you emotionally and/or physically? No 06/01/2024 Comments No Sex and Gender Information Value Date Recorded Sex Assigned at Not on file Legal Sex Female 7:18 PM CDT Gender Identity Not on file Sexual Orientation Not on file Last Filed Vital Signs Vital Sign Reading Time Taken Comments Blood Pressure 103/57 06/02/2024 1:12 AM LEASING ASSOCIATE Pulse 84 06/02/2024 1:12 AM LEASING ASSOCIATE Temperature 36.6 C (97.8 F) 06/02/2024 1:40 AM LEASING ASSOCIATE Respiratory Rate 18 06/02/2024 1:12 AM LEASING ASSOCIATE Oxygen Saturation 97% 06/02/2024 1:12 AM LEASING ASSOCIATE Inhaled Oxygen Concentration - - Weight 93.4 kg (206 lb) 07/30/2022 3:27 PM LEASING ASSOCIATE Height 157.5 cm (5' 2 ) 07/30/2022 3:27 PM LEASING ASSOCIATE Body Mass Index 37.68 07/30/2022 3:27 PM LEASING ASSOCIATE Plan of Treatment Health Maintenance Due Date Last Done Comments DTAP/TDAP/TD VACCINES (1 - Tdap) 2016 HEPATITIS B VACCINES (1 of 3 - 19+ 3-dose series) 2016 CERVICAL CANCER SCREENING 2018 HPV/Cotest (21-29) 2018 PAP SMEAR 2018 INFLUENZA VACCINE (#1) 2024 HPV VACCINES Aged Out No longer eligi ble based on patient's age to complete this topic Insurance RX [facility] Advance Directives For more information, please contact: [phone] * Full Code (Latest Code Status on File) Date Activated Date Inactivated Comments 02/14/2018 2:36 PM 02/15/2018 3:17 PM Care Teams Forestry Technical Officer Relationship Specialty Start Date End Date Michi Gruber MD PCP - General Family Practice 09/28/17
[2024-11-08 18:39] LABS: EDUAAPPEAR Clear; EDUABILI Negative (Negative); EDUABLOOD Trace (Negative); EDUACOLOR1 Yellow; EDUAGLUCOSE Negative (Negative); EDUAKETONE Trace (Negative); EDUALEUKO Negative (Negative); EDUANITRATE Negative (Negative); EDUAPH 5.5; EDUAPROTEIN Negative (Negative); EDUAUROBILI 0.2
--- NOTE | 2024-11-08 18:44 | ED.FEMALEGU ---
HPI - Female Genitourinary General Chief complaint: Urogenital-Female Stated complaint: Urinary Problem Time Seen by Provider: 11/08/24 18:25 Source: patient, RN notes reviewed and old records reviewed Mode of arrival: ambulatory Limitations: no limitations History of Present Illness HPI Narrative: 29 year old female presents to express care with complaints of having burning with urination that started about 2 weeks ago and it did seem to get better till yesterday it returned. Patient also reports that she has had some nausea no vomiting or diarrhea or any fevers states she just feels off . Patient reports on Friday she had gush of fluid from her uterus and she did talk with her [employer] doctor about this. Patient reports no concern for STD exposure. MD elicited complaint: UTI Onset (ago): week(s) (initial symptoms 2 weeks ago did improve then increased symptoms since yesterday) Location of symptoms: urethra Severity: mild Quality of pain: burning Vaginal discharge: other (episode of fluid gush from uterus patient reports) Vaginal bleeding: none Urinary symptoms: Dysuria Treatment prior to arrival: none Related Data Home Medications ?Medication ?Instructions ?Recorded ?Confirmed ?Last Taken ?Type sertraline 100 mg tablet 50 mg PO DAILY 05/18/24 05/27/24 05/27/24 07:00 History dextroamphetamine-amphetamine ER PO 11/08/24 Unknown History 10 mg 24hr capsule,extend release Allergies Allergy/AdvReac Type Severity Reaction Status Date / Time codeine Allergy Severe tight Verified 11/08/24 18:18 chest, shallow breathing adhesive Allergy Intermediate HIVES Verified 11/08/24 18:18 azithromycin Allergy Mild Skin Verified 11/08/24 18:18 irritation penicillin G AdvReac Intermediate Fever Verified 11/08/24 18:18 Review of Systems Review of Systems: CONSTITUTIONAL: Denies fever, chills, or sweats. CARDIOVASCULAR: Denies chest pain, palpitations, or edema. RESPIRATORY: Denies cough or dyspnea. GASTROINTESTINAL: Denies abdominal pain,reports some nausea,no vomiting, or diarrhea. GENITOURINARY: Reports dysuria, no frequency, urgency. Denies flank pain or hematuria. SKIN: Denies rash or itching. MUSCULOSKELETAL: Denies back pain or myalgia. 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 Hypermobility syndrome GERD (gastroesophageal reflux disease) Anxiety Surgical History Surgical History History of hysteroscopy (05/27/24) Hysteroscopy with uterine curettings/ Endometrial ablation / Benign pathology Delivery by section (08/22/22) rpt c/s with bilateral tubal ligation Delivery by section (09/19/15) primary c/s History of cholecystectomy History of knee surgery Family History Family History Mother Hypertension Sibling Asthma Other Family history of arthritis Family history of cardiovascular disease Social History Social History Smoking packs per day: 0.5 Smoking cigarettes per day: 10.0 Years smoked: 3 Smoking pack-years: 1.50 Smoking status: Current every day smoker Tobacco type: cigarettes and e-cigarettes/vaping Second hand tobacco smoke exposure: No Additional smoking assessment comments: vaping for 1 year Alcohol intake: former Alcohol use details: rare Substance use: never Substance use type: does not use Do You Feel Safe in your Home?: Yes Lack of Transportation: No Lack of Food: Never True Current Housing: I Have Housing Concerned About Future Housing: No Difficulty Paying Gas/Electric Bills: No Difficulty Paying for Meds: No Currently Unemployed: No Education: Trade/Vocational Certificate Difficulty w/ Childcare or Family Care: No Living arrangements: with family Additional living arrangements comments: lives with fiance Occupation/Education: occupation 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 There is no relevant family history pertinent to the presenting complaint Exam Narrative: GENERAL: Well-appearing, well-nourished, and in no acute distress. HEAD: Normocephalic, atraumatic. NECK: Supple. no lymphadenopathy CHEST: Clear to auscultation. No respiratory distress.SAO2 100% on room air HEART: Regular rate and rhythm. No murmur heard. Normal peripheral pulses. ABDOMEN: Soft, nontender, nondistended, normal active bowel sounds. No CVA tenderness, reports burning with urination EXTREMITIES: Normal range of motion. No edema. SKIN: Warm, dry, no rash. NEURO: No focal deficits. Alert and oriented x3. Course Course Emergency Course: Patient is aware of diagnosis, understands and agrees to treatment plan.? Anticipatory guidance given.? Patient agrees to follow-up as directed and is aware of reasons to seek care at the emergency department. Portions of this record may have been created with voice recognition software Level of Care: Express Care Visit Vital Signs Vital signs: Vital Signs Temperature 36.4 C L 11/08/24 18:13 Pulse Rate 86 11/08/24 18:13 Respiratory Rate 20 11/08/24 18:13 Blood Pressure 130/71 11/08/24 18:13 Pulse Oximetry 100 11/08/24 18:13 Oxygen Delivery Room Air 11/08/24 18:13 Temperature 36.4 C L 11/08/24 18:13 Pulse Rate 86 11/08/24 18:13 Respiratory Rate 20 11/08/24 18:13 Blood Pressure 130/71 11/08/24 18:13 Pulse Oximetry 100 11/08/24 18:13 Oxygen Delivery Room Air 11/08/24 18:13 MDM - Female Genitourinary MDM Narrative Medical decision making narrative: Exam findings and UA show no acute concerns or changes; patient is non-toxic appearing and is in no distress.? Patient is appropriate for outpatient treatment and follow-up. Differential Diagnosis Differential diagnosis: Likely urinary tract infection, cystitis and other (dysuria) Medical Records Attestation: I reviewed the patient's medical records. Lab Data Attestation: I reviewed the patient's lab results. Lab results narrative: urine dip reviewed: specific gravity 1.030, trace ketones, trace blood, no Leukocytes or nitrite Labs: Lab Results 11/08/24 Range/Units 18:23 POC Urine Color Yellow POC Urine Clarity Clear POC Urine pH 5.5 POC Ur Specif [place] 1.030 POC Urine Protein Negative (Negative) POC Ur Glucose (UA) Negative (Negative) POC Urine Ketones Trace (Negative) POC Urine Blood Trace (Negative) POC Urine Nitrite Negative (Negative) POC Urine Bilirubin Negative (Negative) POC Urine Urobilinogen 0.2 POC U Leukocyte Esteras Negative (Negative) reviewed Critical Care Time Critical Care Time Critical Care Time: No Discharge Plan Discharge Clinical Impression: UTI symptoms Patient Disposition: Home Condition: Stable Instructions: Antibiotic Form, Urinary Tract Infection in Women (ED) Additional Instructions: Increase fluids especially cranberry juice and water Avoid caffeine and carbonated beverages Antibiotic as directed Tylenol/ibuprofen for pain or fever Follow-up with her primary care provider if further problems or concerns Recheck if you have fever over 101, nausea and vomiting. Bactrim DS one tab po 2X daily for 3 days If your symptoms persist, change or worsen significantly before you can contact your personal physician then please, without delay, go to the emergency department for further evaluation. Follow-up with PCP in 7-10 days or sooner if needed Follow up with PCP soon in regards to your blood pressure which is elevated above threshold for referral. Blood pressure above 120/80 may indicate pre-hypertension. 130/71 Patient Language: Latvian Prescriptions: New sulfamethoxazole-trimethoprim [Bactrim DS] 800-160 mg tablet 1 tablet PO Q12H Qty: 6 0RF No Action dextroamphetamine-amphetamine 10 mg capsule,extended release 24hr PO bupropion HCl 150 mg tablet extended release 24 hr 150 mg PO QAM Qty: 90 0RF sertraline 100 mg tablet 50 mg PO DAILY Follow-up/Referrals: Michi Gruber MD [Primary Care Provider] - Time of Disposition: 18:54 Quality [place] Coma Scale Eyes: Open Verbal: Oriented and Alert Motor: Follows Commands [place] Coma Total Score: 15
== END 2024-11-08 19:03 | disposition home or self-care (01) ==
PROVIDERS: Emergency Provider Registered Nurse; PCP Family Medicine Adolescent Medicine
DX: R30.0 Dysuria (principal); K21.9 Gastro-esophageal reflux disease without esophagitis; F41.9 Anxiety disorder, unspecified; F17.210 Nicotine dependence, cigarettes, uncomplicated; F17.290 Nicotine dependence, other tobacco product, uncomplicated
CPT/HCPCS: 81003; 87086; 99213; G0463

== ENCOUNTER 2024-11-26 18:10 | Emergency (ER) | payer OTHER, SELFPAY ==
--- NOTE | ~2024-11-26 | CT_ITS ---
CT facial bones wo con Ordering provider: Ozzie Ma MD History: . right facial numbness/fullness . Comparison: None. Technique: Thin slice axial CT of the facial bones was performed without contrast. Coronal and sagit geraldine reformatted images were also obtained. The dose-length product was 529.67 mGy-cm. FINDINGS: PARANASAL SINUSES: Well aerated. BONES: No facial fracture including no nasal bone fracture. ORBITS AND SUPERFICIAL SOFT TISSUES: The optic globes and orbits are unremarkable. The superficial soft tissues are normal. VISUALIZED MASTOIDS: Well aerated. IMPRESSION: No acute abnormality within the facial bones, as detailed above. Reviewed, dictated and finalized at location A.
--- NOTE | ~2024-11-26 | CT_ITS ---
History: Right-sided facial numbness PROCEDURE: CT head without contrast. COMPARISON: None TECHNIQUE: Axial imaging of the head performed from the skull base to the vertex without IV contrast. Sagittal a nd coronal reformations obtained. DLP: 580 mGy-cm FINDINGS: The ventricles are normal in size, shape and position. There is no mass, mass effect or midline shift. There is no abnormal extra-axial fluid collection or intracranial hemorrhage. Visualized paranasal sinuses are clear. The mastoid air cells are well aerated. No acute displaced fractures within the overlying cranium. Impression: No acute intracranial hemorrhage or suspicious mass effect. Reviewed, dictated and finalized at location A. Impression: No acute intracranial hemorrhage or suspicious mass effect.
--- OUTSIDE RECORDS SUMMARY | 2024-11-26 18:12 | XMS_ITS | Clinical Summary ---
Author Organization [facility] Address [address] [place] [address] Care Team Providers Care Children'S Book Author Name Role Phone Michi Gruber MD Primary Care Provider + Source Comments [facility],non-owned Affiliates and Associated Physician Practices is amultiple site organization consisting of ambulatory clinics and hospital sitesin [place], [place], [place] and [place]. This disclosure is being madepursuant to the Care Everywhere program and may not contain all information available regarding this patient. Last updated 18.[facility] Allergies Active Allergy Reactions Criticality Noted Date [...] and heating? Not hard at all 07/31/2022 [facility] [place] of Occupat ional Health - Occupational Stress [...] No 07/31/2022 Housing Stability Vital Sign Answer Eloy e Recorded In the last 12 months, [...] place to sleep or slept in a long-term (including now)? No 07/31/2022 Comments No Sex and Gender Information Value Date Recorded Sex Assigned at Not on file Legal Sex Female 5:45 AM MASTER DATA ANALYST Gender Identity Not on file Sexual Orientation Not on file Last Filed Vital Signs Vital Sign Reading Time Taken Comments Blood Pressure 112/73 08/16/2022 11:25 AM MASTER DATA ANALYST Pulse 108 08/16/2022 11:25 AM MASTER DATA ANALYST Temperature 36.5 C (97.7 F) 08/01/2022 12:05 PM MASTER DATA ANALYST Respiratory Rate 20 08/01/2022 12:0 5 PM MASTER DATA ANALYST Oxygen Saturation 99% 08/01/2022 12: 05 PM MASTER DATA ANALYST Inhaled Oxygen Concentration - - Weight 92.4 kg (203 lb 12.8 oz) 023 11:13 AM MASTER DATA ANALYST Height 157.5 cm (5' 2 ) 07/31/2022 11:1 3 AM MASTER DATA ANALYST Body Mass Index 37.28 07/31/2022 11:13 AM MASTER DATA ANALYST Plan of Treatment Health Maintenance Due Date [...] HEPATITIS SCREEN ACUTE STAT 07/31/2022 11:39 AM MASTER DATA ANALYST Elevated liver enzymes from Last 3 Months or Most Recently Relevant to Health Maintenance Results * HEPATITIS SCREEN ACUTE (07/31/2022 11:39 AM MASTER DATA ANALYST) HAV Antibody IgM Non Reactive Non Reactive 07/31/2022 12:53 PM MASTER DATA ANALYST [facility] HBsAg Non Reactive Non Reactive 07/31/2022 12:53 PM MASTER DATA ANALYST [facility] HBc Antibody IgM Non Reactive Non Reactive 07/31/2022 12:53 PM MASTER DATA ANALYST [facility] HCV Antibody Screen Non Reactive Non Reactive 07/31/2022 12:53 PM MASTER DATA ANALYST [facility] Blood BLOOD SPECIMEN / Unknown Venipuncture / Unknown 07/31/2022 11:39 AM MASTER DATA ANALYST 07/31/2022 11:50 AM MASTER DATA ANALYST Narrative [facility] - 07/31/2022 12:53 PM MASTER DATA ANALYST Non Reactive - Antibodies to Hepatitis C virus (HCV) were not detected, result does not exclude early acute HCV infection. Herb Burgess MD LAB - CHEMISTRY ORDERABLES Final Result Performing Organization Address City/State/[facility] Co de Phone Number [facility] [address], [place] [phone] from Last 3 Months or Most Recently Relevant to Health Maintenance Insurance MEDICAID - [place] SELF PAY NO INSURANCE Member Subscriber Plan / Payer (Ef fective for All Dates) Name:Kleber Arciniega Member ID:Not on file Relation to Subscriber:Not on file Name:KLEBER ARCINIEGA Subscriber ID:Not on file (Home) Address: [employer] [address] [place] [id number] Payer ID:Not on file Group ID:Not on file Type:Self Pay Address: [place], [place] Advance Directives * Full Code (Latest Code Status on File) Date Activated Date Inactivated Comments 07/31/2022 3:05 PM 08/01/2022 7:38 PM Care Teams Children'S Book Author Relationship Specialty Start Date End Date Michi Gruber MD [address] [address] PCP - General 09/19/21
--- OUTSIDE RECORDS SUMMARY | 2024-11-26 18:12 | XMS_ITS | Clinical Summary ---
Author Organization [facility] Address [address] [place] [address] Phone Care Team Providers Care Tensile Tester Name Role Phone Michi Gruber MD Primary Care Provider +1- [phone] Allergies Active Allergy Reactions Criticality Noted Date Comments Adhesive Tape-Silicones Hives High 02/13/2018 Azithromycin Hives High 09/28/2017 Codeine Anxiety Low 09/28/2017 Medications vits15/iron/foli c/dss ( VIT 33-UXVO-MXEDN-DS S ORAL) Take by mouth. Active ferrous [...] Encounters Date Type Department Care Team Description 11/23/2024 External Device Data [facility] ABSTRACTION Provider, Abstract 11/16/2024 External Device Data [facility] ABSTRACTION Provider, Abstract 11/16/2024 External Device Data [facility] ABSTRACTION Provider, Abstract [...] Comments Blood Pressure 103/57 06/02/2024 1:12 AM SOLAR ENERGY SYSTEM INSTALLER Pulse 84 06/02/2024 1:12 AM SOLAR ENERGY SYSTEM INSTALLER Temperature 36.6 C (97.8 F) 06/02/2024 1:40 AM SOLAR ENERGY SYSTEM INSTALLER Respiratory Rate 18 06/02/2024 1:12 AM SOLAR ENERGY SYSTEM INSTALLER Oxygen Saturation 97% 06/02/2024 1:12 AM SOLAR ENERGY SYSTEM INSTALLER Inhaled Oxygen Concentration - - Weight 93.4 kg (206 lb) 07/30/2022 3:27 PM SOLAR ENERGY SYSTEM INSTALLER Height 157.5 cm (5' 2 ) 07/30/2022 3:27 PM SOLAR ENERGY SYSTEM INSTALLER Body Mass Index 37.68 07/30/2022 3:27 PM SOLAR ENERGY SYSTEM INSTALLER Plan of Treatment Health Maintenance Due Date [...] Advance Directives For more information, please contact: [phone] * Full Code (Latest Code Status on File) Date Activated Date Inactivated Comments 02/14/2018 2:36 PM 02/15/2018 3:17 PM Care Teams Tensile Tester Relationship Specialty Start Date End Date Michi Gruber MD PCP - General Family Practice 09/28/17
--- OUTSIDE RECORDS SUMMARY | 2024-11-26 19:09 | XMS_ITS | Clinical Summary ---
Author Organization [facility] Address [address] [place] [address] Phone Care Team Providers Care Java Web Services Developer Name Role Phone Michi Gruber MD Primary Care Provider +1- [phone] Allergies Active Allergy Reactions Criticality Noted Date Comments Adhesive Tape-Silicones Hives High 02/13/2018 Azithromycin Hives High 09/28/2017 Codeine Anxiety Low 09/28/2017 Medications vits15/iron/foli c/dss ( VIT 37-BKYR-VYBWO-DS S ORAL) Take by mouth. Active ferrous [...] Comments Blood Pressure 103/57 06/02/2024 1:12 AM CONTROL SYSTEMS DEVELOPER Pulse 84 06/02/2024 1:12 AM CONTROL SYSTEMS DEVELOPER Temperature 36.6 C (97.8 F) 06/02/2024 1:40 AM CONTROL SYSTEMS DEVELOPER Respiratory Rate 18 06/02/2024 1:12 AM CONTROL SYSTEMS DEVELOPER Oxygen Saturation 97% 06/02/2024 1:12 AM CONTROL SYSTEMS DEVELOPER Inhaled Oxygen Concentration - - Weight 93.4 kg (206 lb) 07/30/2022 3:27 PM CONTROL SYSTEMS DEVELOPER Height 157.5 cm (5' 2 ) 07/30/2022 3:27 PM CONTROL SYSTEMS DEVELOPER Body Mass Index 37.68 07/30/2022 3:27 PM CONTROL SYSTEMS DEVELOPER Plan of Treatment Health Maintenance Due Date [...] Advance Directives For more information, please contact: [phone] * Full Code (Latest Code Status on File) Date Activated Date Inactivated Comments 02/14/2018 2:36 PM 02/15/2018 3:17 PM Care Teams Java Web Services Developer Relationship Specialty Start Date End Date Michi Gruber MD PCP - General Family Practice 09/28/17
--- OUTSIDE RECORDS SUMMARY | 2024-11-26 19:09 | XMS_ITS | Clinical Summary ---
Author Organization [facility] Address [address] [place] [address] Care Team Providers Care Customer Acquisition Specialist Name Role Phone Michi Gruber MD Primary Care Provider + Source Comments [facility],non-owned Affiliates and Associated Physician Practices is amultiple site organization consisting of ambulatory clinics and hospital sitesin [place], [place], [place] and [place]. This disclosure is being madepursuant to the Care Everywhere program and may not contain all information available regarding this patient. Last updated 18.[facility] Allergies Active Allergy Reactions Criticality Noted Date [...] and heating? Not hard at all 07/31/2022 [facility] [place] of Occupat ional Health - Occupational Stress [...] place to sleep or slept in a snf (including now)? No 07/31/2022 Comments No Sex and Gender Information Value Date Recorded Sex Assigned at Not on file Legal Sex Female 5:45 AM BOAT PILOT Gender Identity Not on file Sexual Orientation Not on file Last Filed Vital Signs Vital Sign Reading Time Taken Comments Blood Pressure 112/73 08/16/2022 11:25 AM BOAT PILOT Pulse 108 08/16/2022 11:25 AM BOAT PILOT Temperature 36.5 C (97.7 F) 08/01/2022 12:05 PM BOAT PILOT Respiratory Rate 20 08/01/2022 12:0 5 PM BOAT PILOT Oxygen Saturation 99% 08/01/2022 12: 05 PM BOAT PILOT Inhaled Oxygen Concentration - - Weight 92.4 kg (203 lb 12.8 oz) 023 11:13 AM BOAT PILOT Height 157.5 cm (5' 2 ) 07/31/2022 11:1 3 AM BOAT PILOT Body Mass Index 37.28 07/31/2022 11:13 AM BOAT PILOT Plan of Treatment Health Maintenance Due Date [...] HEPATITIS SCREEN ACUTE STAT 07/31/2022 11:39 AM BOAT PILOT Elevated liver enzymes from Last 3 Months or Most Recently Relevant to Health Maintenance Results * HEPATITIS SCREEN ACUTE (07/31/2022 11:39 AM BOAT PILOT) HAV Antibody IgM Non Reactive Non Reactive 07/31/2022 12:53 PM BOAT PILOT [facility] HBsAg Non Reactive Non Reactive 07/31/2022 12:53 PM BOAT PILOT [facility] HBc Antibody IgM Non Reactive Non Reactive 07/31/2022 12:53 PM BOAT PILOT [facility] HCV Antibody Screen Non Reactive Non Reactive 07/31/2022 12:53 PM BOAT PILOT [facility] Blood BLOOD SPECIMEN / Unknown Venipuncture / Unknown 07/31/2022 11:39 AM BOAT PILOT 07/31/2022 11:50 AM BOAT PILOT Narrative [facility] - 07/31/2022 12:53 PM BOAT PILOT Non Reactive - Antibodies to Hepatitis C virus (HCV) were not detected, result does not exclude early acute HCV infection. Herb Burgess MD LAB - CHEMISTRY ORDERABLES Final Result Performing Organization Address City/State/[facility] Co de Phone Number [facility] [address] [place], [place] [phone] from Last 3 Months or Most Recently Relevant to Health Maintenance Insurance MEDICAID - [place] SELF PAY NO INSURANCE Member Subscriber Plan / Payer (Ef fective for All Dates) Name:Kleber Arciniega Member ID:Not on file Relation to Subscriber:Not on file Name:KLEBER ARCINIEGA Subscriber ID:Not on file (Home) Address: [facility] [address] [place] [phone] Payer ID:Not on file Group ID:Not on file Type:Self Pay Address: [place], [place] Advance Directives * Full Code (Latest Code Status on File) Date Activated Date Inactivated Comments 07/31/2022 3:05 PM 08/01/2022 7:38 PM Care Teams Customer Acquisition Specialist Relationship Specialty Start Date End Date Michi Gruber MD [address] [address] PCP - General 09/19/21
[2024-11-26 19:18] VITALS: BP 125/83; PULSE 93; RESP 18; O2SAT 100
--- NOTE | 2024-11-26 19:48 | ED_ITS ---
HPI - General Adult General Chief complaint: Unspecified Stated complaint: I think I have bells palsy Time Seen by Provider: 11/26/24 18:50 History of Present Illness HPI narrative: 29-year-old female presenting to the emergency department for evaluation of right-sided facial numbness, and pain in the side of her neck/TMJ region. Patient states that she has had the symptoms for about 1 week and noticed it when she woke up 1 morning. Thought it felt similar to last time she had Wagoner's palsy but she knows that she did not have any facial asymmetry or droop. She notices that she has some sensation changes on the inside of her right mouth and tongue and knows that she is having some muffled hearing out of her right ear. Patient denies any injury or trauma. No headache or neck pain, no chest pain shortness a breath. Denies any bites, tick exposures, scratches or any recent infections. No URI symptoms. No sinus pain or sinus pressure. No drainage. Denies any other neurological history. Related Data Home Medications ?Medication ?Instructions ?Recorded ?Confirmed ?Last Taken ?Type sertraline 100 mg tablet 50 mg PO DAILY 05/18/24 11/24/24 05/27/24 07:00 History dextroamphetamine-amphetamine ER PO 11/08/24 11/24/24 Unknown History 10 mg 24hr capsule,extend release amitriptyline 25 mg tablet 25 mg PO QHS 11/24/24 11/24/24 Unknown History propranolol 20 mg tablet 20 mg PO Q12H 11/24/24 11/24/24 Unknown History Allergies Allergy/AdvReac Type Severity Reaction Status Date / Time codeine Allergy Severe tight Verified 11/24/24 08:40 chest, shallow breathing adhesive Allergy Intermediate HIVES Verified 11/24/24 08:40 azithromycin Allergy Mild Skin Verified 11/24/24 08:40 irritation penicillin G AdvReac Intermediate Fever Verified 11/24/24 08:40 Review of Systems 2 Review of Systems: As reviewed above in HPI [facility] Past Medical History Medical History ADHD (attention deficit hyperactivity disorder) Menorrhagia Pruritus of Suppression of menstruation 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 Hypermobility syndrome GERD (gastroesophageal reflux disease) Anxiety Surgical History Surgical History History of hysteroscopy (05/27/24) Hysteroscopy with uterine curettings/ Endometrial ablation / Benign pathology Delivery by section (08/22/22) rpt c/s with bilateral tubal ligation Delivery by section (09/19/15) primary c/s History of cholecystectomy History of knee surgery Family History Family History Mother Hypertension Sibling Asthma Other Family history of arthritis Family history of cardiovascular disease Social History Social History Smoking packs per day: 0.5 Smoking cigarettes per day: 10.0 Years smoked: 3 Smoking pack-years: 1.50 Smoking status: Current every day smoker Tobacco type: cigarettes and e-cigarettes/vaping Second hand tobacco smoke exposure: No Additional smoking assessment comments: vaping for 1 year Alcohol intake: former Alcohol use details: rare Substance use: never Substance use type: does not use Do You Feel Safe in your Home?: Yes Lack of Transportation: No Lack of Food: Never True Current Housing: I Have Housing Concerned About Future Housing: No Difficulty Paying Gas/Electric Bills: No Difficulty Paying for Meds: No Currently Unemployed: No Education: Trade/Vocational Certificate Difficulty w/ Childcare or Family Care: No Living arrangements: with family Additional living arrangements comments: lives with fiance Occupation/Education: occupation 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 Mucous membranes moist. Tenderness reproducible around the right-sided TMJ NECK: Supple. CHEST: [Clear to auscultation. No respiratory distress.] HEART: [Regular rate and rhythm]. No murmur heard. [Normal peripheral pulses.] ABDOMEN: [Soft, nondistended], [nontender], [No rigidity or guarding] EXTREMITIES: Normal range of motion. [No edema.] SKIN: Warm, dry, no rash. NEURO: Alert oriented x3, answers all questions appropriately. No facial asymmetries or droop. Tongue protrusion midline, strength full in all major facial muscle groups. No ptosis. She does have numbness in the V1 and V2 distribution of the right-sided face but V3 is intact bilaterally. No deficits in the left side. Muffled hearing of the right ear compared to left but no lesions. PSYCH: [Normal mood and affect.] Course Vital Signs Vital signs: Vital Signs Pulse Rate 93 11/26/24 19:18 Respiratory Rate 18 11/26/24 19:18 Blood Pressure 125/83 11/26/24 19:18 Pulse Oximetry 100 11/26/24 19:18 Pulse Rate 90 11/26/24 20:55 Respiratory Rate 18 11/26/24 20:55 Blood Pressure 129/75 11/26/24 20:55 Pulse Oximetry 100 11/26/24 20:55 Medical Decision Making [facility] Narrative Medical decision making narrative: 29-year-old female presenting to the emergency department for evaluation of right-sided facial deficits symptoms. Patient states she has had numbness in the right side of her upper jaw and face and does appear to have numbness in the V1 and V2 distribution on the right side of her face as well as some muffled hearing out of her right ear. Reproducible pain with palpation along the TMJ region on the right side. No overlying skin changes or lesions. No motor deficits in the ocular muscles or facial muscles. Considerations at this time for potential TMJ, herpes zoster, atypical Wagoner's palsy, facial nerve irritation from trigeminal neuralgia or trigeminal irritation versus intracranial mass or lesion. She has had no other symptoms of neurological complaints in the past and no family history of neurological disease such as MS. Given her age and physical exam findings will evaluate with laboratory studies, inflammatory markers and CT scan of the head and facial bones for further evaluation. I discussed with her that likely will not be able to get to the bottom for diagnosis at this time and she will be referred to Neurology with potential MRI imaging on outpatient basis but will start the workup here and she was agreeable with this plan. Patient's workup shows a slight leukocytosis of 11.1, normal hemoglobin, normal platelets. Inflammatory markers mildly elevated including elevated ESR and CRP. Nonspecific but could point towards potential inflamed process such as Wagoner's palsy or trigeminal irritation as the source of her symptoms. Her CT scans of the head and facial structures were all negative for any acute process. I discussed with the patient in next steps including outpatient evaluation with potential Neurology for MRI imaging. Given suspicious process for inflammation we will start her on steroids including a Medrol pack. She is given a dose of Solu-Medrol here in the ED and discharged home. Patient given return precautions and safe for discharge home at this time. Medical Records Medical records reviewed: Yes I reviewed the external patient's medical records. Vital Signs Vital Signs: Vital Signs Pulse Rate 93 11/26/24 19:18 Respiratory Rate 18 11/26/24 19:18 Blood Pressure 125/83 11/26/24 19:18 Pulse Oximetry 100 11/26/24 19:18 Pulse Rate 90 11/26/24 20:55 Respiratory Rate 18 11/26/24 20:55 Blood Pressure 129/75 11/26/24 20:55 Pulse Oximetry 100 11/26/24 20:55 Lab Data Lab results reviewed: Yes I reviewed the patient's lab results. 11/26/24 19:33 11/26/24 19:33 Labs: Lab Results 11/26/24 Range/Units 19:33 WBC 11.1 H (4.5-10.0) K/mm3 RBC 4.57 (4.2-5.4) M/mm3 Hgb 12.8 (12.0-15.0) g/dL Hct 39.7 (37.0-47.0) % MCV 86.9 (80-100) fl MCH 28.0 (26-34) pg MCHC 32.2 (32-36) g/dl RDW 14.4 (11.5-14.5) % Plt Count 374 (150-375) k/mm3 MPV 9.6 (7.4-10.4) fl Immature Gran % (Auto) 0.4 (0-0.5) % Neut % (Auto) 56.9 (45.5-73.1) % Lymph % (Auto) 33.3 (18.3-44.2) % [place] % (Auto) 6.4 (2.6-8.5) % Eos % (Auto) 2.7 (0-4.4) % Baso % (Auto) 0.3 (0.2-1.2) % Lymph # (Auto) 3.70 H (0.9-3.2) K/mm3 [place] # (Auto) 0.7 H (0.1-0.6) K/mm3 Eos # (Auto) 0.3 (0-0.3) K/mm3 Baso # (Auto) 0.0 (0.0-0.1) K/mm3 Abs Immat Gran (auto) 0.04 H (0.00-0.031) K/mm3 Absolute Neuts (auto) 6.3 (1.3-6.7) K/mm3 Absolute Nucleated RBC 0.000 (0.0-0.012) K/mm3 Nucleated RBC % 0.0 (0.0-0.2) % ESR 30 H (0-20) mm/hr Sodium 138 (137-145) mmol/L Potassium 4.2 (3.4-5.0) mmol/L Chloride 103 (98-107) mmol/L Carbon Dioxide 27 (22-30) mmol/L Anion Gap 8 (4-12) mmol/L BUN 11 (7-17) mg/dL Creatinine 0.71 (0.7-1.0) mg/dL Estim Creat Clear Calc 127 ml/min Estimated GFR > 60 (59 - ) Glucose 88 (65-110) mg/dL Calcium 8.9 (8.4-10.2) mg/dL Total Bilirubin 0.3 (0.2-1.3) mg/dL AST 27 (14-36) U/L ALT 23 (6-35) U/L Alkaline Phosphatase 86 (38-126) U/L C-Reactive Protein 2.1 H (<1.0) mg/dL Total Protein 8.0 (6.3-8.2) g/dL Albumin 4.4 (3.5-5.1) g/dL Imaging Data Attestation: I personally reviewed and interpreted this imaging study as follows: My impression: Impressions Head CT 11/26/24 20:01 Impression: No acute intracranial hemorrhage or suspicious mass effect. Face CT 11/26/24 20:04 IMPRESSION: No acute abnormality within the facial bones, as detailed above. Discharge Plan Discharge Clinical Impression: Right facial numbness Patient Disposition: Home Condition: Stable Instructions: Antibiotic Form, Wagoner Palsy (ED), Trigeminal Neuralgia (ED), Paresthesia (ED) Additional Instructions: Your CT scans do not show any acute findings but your laboratory studies do show some elevated inflammatory markers. Your symptoms do not classically fit a single etiology and could be a combination of factors such as nerve irritation, impingement, palsy or infection but that is less likely. We will treat you with a course of steroids while you get further evaluation on outpatient basis. Will refer you to a neurologist who might evaluate you and provide recommendations for an MRI. Follow-up with them and your primary care provider. Return with any emergent concerns. Patient Language: Chinese Prescriptions: New methylprednisolone [Medrol (David)] 4 mg tablets,dose pack See Rx Instructions .ROUTE .COMPLEX Qty: 21 0RF Rx Instructions: orally per package directions No Action dextroamphetamine-amphetamine 10 mg capsule,extended release 24hr PO propranolol 20 mg tablet 20 mg PO Q12H amitriptyline 25 mg tablet 25 mg PO QHS bupropion HCl 150 mg tablet extended release 24 hr 150 mg PO QAM Qty: 90 0RF sertraline 100 mg tablet 50 mg PO DAILY Follow-up/Referrals: Ceci Dunbar MD [Physician] - 1 Week (Right-sided facial numbness) Michi Gruber MD [Primary Care Provider] - Time of Disposition: 21:20
[2024-11-26 19:55] LABS: Basophils Percent Auto 0.3 % (0.2-1.2); Eosinophils Absolute Auto 0.3 K/mm3 (0-0.3); Eosinophils Percent Auto 2.7 % (0-4.4); Hematocrit 39.7 % (37.0-47.0); Hemoglobin 12.8 g/dL (12.0-15.0); Immature Granulocyte Absolute 0.04 K/mm3 (0.00-0.031); Immature Granulocyte Percent A 0.4 % (0-0.5); Lymphocytes Percent Auto 33.3 % (18.3-44.2); Mean Corpuscular HGB Conc 32.2 g/dl (32-36); Mean Corpuscular Volume 86.9 fl (80-100); Mean Platelet Volume 9.6 fl (7.4-10.4); Monocytes Absolute Auto 0.7 K/mm3 (0.1-0.6); Monocytes Percent Auto 6.4 % (2.6-8.5); Neutrophils Absolute Auto 6.3 K/mm3 (1.3-6.7); Neutrophils Percent Auto 56.9 % (45.5-73.1); Platelet Count Result 374 k/mm3 (150-375); Red Blood Count 4.57 M/mm3 (4.2-5.4); Red Cell Distribution Width 14.4 % (11.5-14.5); White Blood Count 11.1 K/mm3 (4.5-10.0)
[2024-11-26 20:21] LABS: Erythrocyte Sedimentation Rate 30 mm/hr (0-20)
[2024-11-26 20:24] LABS: Alanine Aminotransferase 23 U/L (6-35); Albumin Level 4.4 g/dL (3.5-5.1); Alkaline Phosphatase 86 U/L (38-126); Anion Gap 8 mmol/L (4-12); Aspartate Amino Transferase 27 U/L (14-36); Bilirubin,Total 0.3 mg/dL (0.2-1.3); Blood Urea Nitrogen 11 mg/dL (7-17); CRP 2.1 mg/dL (<1.0); Calcium 8.9 mg/dL (8.4-10.2); Carbon Dioxide 27 mmol/L (22-30); Chloride 103 mmol/L (98-107); Estimated CRCL calculation 127 ml/min; Estimated Glomerular Filt Rate > 60; Glucose 88 mg/dL (65-110); Potassium 4.2 mmol/L (3.4-5.0); Sodium 138 mmol/L (137-145)
[2024-11-26] MEDS: methylPREDNISolone SOD SUCC 40 MG VIAL IV PUSH (20:52)
[2024-11-26 20:55] VITALS: BP 129/75; PULSE 90; RESP 18; O2SAT 100
[2024-11-26 21:50] VITALS: BP 123/74; PULSE 94; RESP 18; O2SAT 98
== END 2024-11-26 21:52 | disposition home or self-care (01) ==
PROVIDERS: Emergency Provider Student in an Organized Health Care Education/Training Program; PCP Family Medicine Adolescent Medicine
DX: R20.0 Anesthesia of skin (principal); F90.9 Attention-deficit hyperactivity disorder, unspecified type; K21.9 Gastro-esophageal reflux disease without esophagitis; F41.9 Anxiety disorder, unspecified; F17.210 Nicotine dependence, cigarettes, uncomplicated; F17.290 Nicotine dependence, other tobacco product, uncomplicated
CPT/HCPCS: 36415; 70450; 70486; 80053; 85025; 85652; 86140; 96374; 99284; J2919

== ENCOUNTER 2024-12-22 13:04 | Outpatient (CLI) | payer OTHER, SELFPAY ==
--- NOTE | ~2024-12-22 | US_ITS ---
US pelvic complete w TV Ordering provider: Rodney Burt MD History: . R10.2 - Pelvic and perineal pain . Comparison: None. Technique: Transabdominal and endovaginal ultrasound of the pelvis (Doppler ultrasound interrogation techniques used as needed for this exam.) FINDINGS: CERVIX: Multiple nabothian cysts. UTERUS: Measures 7.1x 5.4x 7.2 cm in length which is within normal limits and is anteverted. No myom etrial masses. ENDOMETRIUM: Heterogeneous. Normal in thickness measuring 14.12 mm. (Note: the premenopausal endometr ium may measure up to 16 mm when in the secretory phase.) No endometrial masses, or cysts. Minimal fl uid seen in the endometrial cavity.. CUL DE SAC: No free fluid. RIGHT OVARY: Normal in size measuring 1.7x 1.9x 1.7 cm. Normal echotexture. Doppler vascular flow pre sent. LEFT OVARY: Normal in size measuring 2.5x 2.6x 2.2 cm. Normal echotexture. Doppler vascular flow pres ent. ADNEXA: Normal. No mass. IMPRESSION: Slightly thickened endometrium with heterogenous appearance. Correlation with the menstrual stage is advised. Multiple nabothian cysts. Minimal fluid in the endometrial cavity. Otherwise, normal pelvic ultrasound. Reviewed, dictated and finalized at location A. IMPRESSION: Slightly thickened endometrium with heterogenous appearance. Correlation with t he menstrual stage is advised. Multiple nabothian cysts. Minimal fluid in the e ndometrial cavity. Otherwise, normal pelvic ultrasound.
--- OUTSIDE RECORDS SUMMARY | 2024-12-22 13:07 | XMS_ITS | Clinical Summary ---
Author Organization [facility] Address [address] [place] [address] Phone Care Team Providers Care Dietary Director Name Role Phone Michi Gruber MD Primary Care Provider [phone]- [phone] Allergies Active Allergy Reactions Criticality Noted Date Comments Adhesive Tape-Silicones Hives High 02/13/2018 Azithromycin Hives High 09/28/2017 Codeine Anxiety Low 09/28/2017 Medications vits15/iron/foli c/dss ( VIT 34-LJJI-[id number]-DS S ORAL) Take by mouth. Active ferrous [...] Encounters Date Type Department Care Team Description 12/14/2024 External Device Data [facility] Provider, Abstract 11/23/2024 External Device Data [facility] Provider, [...] Comments Blood Pressure 103/57 06/02/2024 1:12 AM BUS AND RAIL OPERATOR Pulse 84 06/02/2024 1:12 AM BUS AND RAIL OPERATOR Temperature 36.6 C (97.8 F) 06/02/2024 1:40 AM BUS AND RAIL OPERATOR Respiratory Rate 18 06/02/2024 1:12 AM BUS AND RAIL OPERATOR Oxygen Saturation 97% 06/02/2024 1:12 AM BUS AND RAIL OPERATOR Inhaled Oxygen Concentration - - Weight 93.4 kg (206 lb) 07/30/2022 3:27 PM BUS AND RAIL OPERATOR Height 157.5 cm (5' 2) 07/30/2022 3:27 PM BUS AND RAIL OPERATOR Body Mass Index 37.68 07/30/2022 3:27 PM BUS AND RAIL OPERATOR Plan of Treatment Health Maintenance Due Date [...] Advance Directives For more information, please contact: [phone] * Full Code (Latest Code Status on File) Date Activated Date Inactivated Comments 02/14/2018 2:36 PM 02/15/2018 3:17 PM Care Teams Dietary Director Relationship Specialty Start Date End Date Michi Gruber MD PCP - General Family Practice 09/28/17
--- OUTSIDE RECORDS SUMMARY | 2024-12-22 13:07 | XMS_ITS | Clinical Summary ---
Author Organization [facility] Address [address] [place] [address] Care Team Providers Care Pocket Stitcher Name Role Phone Michi Gruber MD Primary Care Provider + Source Comments [facility],non-owned Affiliates and Associated Physician Practices is amultiple site organization consisting of ambulatory clinics and hospital sitesin [place], [place], [place] and [place]. This disclosure is being madepursuant to the Care Everywhere program and may not contain all information available regarding this patient. Last updated 18.[facility] Allergies Active Allergy Reactions Criticality Noted Date [...] and heating? Not hard at all 07/31/2022 [facility] [place] [facility] Occupat ional Health - Occupational Stress [...] place to sleep or slept in a senior care (including now)? No 07/31/2022 Comments No Sex and Gender Information Value Date Recorded Sex Assigned at Not on file Legal Sex Female 5:45 AM SECURITY DOOR INSTALLER Gender Identity Not on file Sexual Orientation Not on file Last Filed Vital Signs Vital Sign Reading Time Taken Comments Blood Pressure 112/73 08/16/2022 11:25 AM SECURITY DOOR INSTALLER Pulse 108 08/16/2022 11:25 AM SECURITY DOOR INSTALLER Temperature 36.5 C (97.7 F) 08/01/2022 12:05 PM SECURITY DOOR INSTALLER Respiratory Rate 20 08/01/2022 12:0 5 PM SECURITY DOOR INSTALLER Oxygen Saturation 99% 08/01/2022 12: 05 PM SECURITY DOOR INSTALLER Inhaled Oxygen Concentration - - Weight 92.4 kg (203 lb 12.8 oz) 023 11:13 AM SECURITY DOOR INSTALLER Height 157.5 cm (5' 2) 07/31/2022 11:1 3 AM SECURITY DOOR INSTALLER Body Mass Index 37.28 07/31/2022 11:13 AM SECURITY DOOR INSTALLER Plan of Treatment Health Maintenance Due [...] HEPATITIS SCREEN ACUTE STAT 07/31/2022 11:39 AM SECURITY DOOR INSTALLER Elevated liver enzymes from Last 3 Months or Most Recently Relevant to Health Maintenance Results * HEPATITIS SCREEN ACUTE (07/31/2022 11:39 AM SECURITY DOOR INSTALLER) HAV Antibody IgM Non Reactive Non Reactive 07/31/2022 12:53 PM SECURITY DOOR INSTALLER [facility] HBsAg Non Reactive Non Reactive 07/31/2022 12:53 PM SECURITY DOOR INSTALLER [facility] HBc Antibody IgM Non Reactive Non Reactive 07/31/2022 12:53 PM SECURITY DOOR INSTALLER [facility] HCV Antibody Screen Non Reactive Non Reactive 07/31/2022 12:53 PM SECURITY DOOR INSTALLER [facility] Blood BLOOD SPECIMEN / Unknown Venipuncture / Unknown 07/31/2022 11:39 AM SECURITY DOOR INSTALLER 07/31/2022 11:50 AM SECURITY DOOR INSTALLER Narrative [facility] - 07/31/2022 12:53 PM SECURITY DOOR INSTALLER Non Reactive - Antibodies to Hepatitis C virus (HCV) were not detected, result does not exclude early acute HCV infection. Herb Burgess MD LAB - CHEMISTRY ORDERABLES Final Result Performing Organization Address City/State/[facility] Co de Phone Number [facility] [address] [place], [place] [id number] from Last 3 Months or Most Recently Relevant to Health Maintenance Insurance MEDICAID - [place] SELF PAY NO INSURANCE Member Subscriber Plan / Payer (Ef fective for All Dates) Name:Kleber Arciniega Member ID:Not on file Relation to Subscriber:Not on file Name:KLEBER ARCINIEGA Subscriber ID:Not on file (Home) Address: [facility] [address] [place] [id number] Payer ID:Not on file Group ID:Not on file Type:Self Pay Address: [place], [place] Advance Directives * Full Code (Latest Code Status on File) Date Activated Date Inactivated Comments 07/31/2022 3:05 PM 08/01/2022 7:38 PM Care Teams Pocket Stitcher Relationship Specialty Start Date End Date Michi Gruber MD [address] [address] PCP - General 09/19/21
== END 2024-12-22 13:05 | disposition home or self-care (01) ==
PROVIDERS: PCP Family Medicine Adolescent Medicine; Visit Provider Obstetrics & Gynecology
DX: R93.89 Abnormal findings on diagnostic imaging of other specified body structures (principal); N88.8 Other specified noninflammatory disorders of cervix uteri; N92.0 Excessive and frequent menstruation with regular cycle
CPT/HCPCS: 76830; 76856

== ENCOUNTER 2025-03-02 12:05 | Emergency (ER) | payer OTHER, SELFPAY ==
--- OUTSIDE RECORDS SUMMARY | 2025-03-02 12:07 | XMS_ITS | Clinical Summary ---
Author Organization [facility] Address [address] [place] [address] Phone Care Team Providers Care Construction Project Coordinator Name Role Phone Michi Gruber MD Primary Care Provider +1- [phone] Allergies Active Allergy Reactions Criticality Noted Date Comments Adhesive Tape-Silicones Hives High 02/13/2018 Azithromycin Hives High 09/28/2017 Codeine Anxiety Low 09/28/2017 Medications vits15/iron/foli c/dss ( VIT 84-BHVI-[id number]-DS S ORAL) Take by mouth. Active ferrous [...] Encounters Date Type Department Care Team Description 02/23/2025 External Device Data [facility] Provider, Abstract 02/22/2025 External Device Data [facility] Provider, Abstract 02/08/2025 External Device Data [facility] Provider, Abstract 02/08/2025 External Device Data [facility] Provider, Abstract 02/02/2025 External Device Data [facility] Provider, Abstract 02/01/2025 External Device Data [facility] Provider, Abstract 01/11/2025 External Device Data [facility] Provider, Abstract 01/04/2025 External Device Data [facility] Provider, Abstract 12/28/2024 External Device Data [facility] Provider, Abstract 12/28/2024 External Device Data [facility] Provider, Abstract 12/14/2024 External Device Data [facility] Provider, Abstract from Last 3 Months Social History Tobacco Use Types Packs/Day Years Used Date Smoking Tobacco: Former Cigarettes Q uit: 10/19/2018 Smokeless Tobacco: Never Alcohol Use Standard Drinks/Week Comments Yes 0 (1 standard drink = 0.6 oz pur e alcohol) Comments No Sex and Gender Information Value Date Recorded Sex Assigned at Not on file Legal Sex Female 7:18 PM CDT Gender Identity Not on file Sexual Orientation Not on file Last Filed Vital Signs Vital Sign Reading Time Taken Comments Blood Pressure 103/57 06/02/2024 1:12 AM HOME CARE GIVER Pulse 84 06/02/2024 1:12 AM HOME CARE GIVER Temperature 36.6 C (97.8 F) 06/02/2024 1:40 AM HOME CARE GIVER Respiratory Rate 18 06/02/2024 1:12 AM HOME CARE GIVER Oxygen Saturation 97% 06/02/2024 1:12 AM HOME CARE GIVER Inhaled Oxygen Concentration - - Weight 93.4 kg (206 lb) 07/30/2022 3:27 PM HOME CARE GIVER Height 157.5 cm (5' 2) 07/30/2022 3:27 PM HOME CARE GIVER Body Mass Index 37.68 07/30/2022 3:27 PM HOME CARE GIVER Plan of Treatment Health Maintenance Due Date Last Done Comments HPV VACCINES (1 - 3-dose series) 2012 DTAP/TDAP/TD VACCINES (1 - Tdap) 2016 HEPATITIS B VACCINES (1 of 3 - 19+ 3-dose series) 05/22 CERVICAL CANCER SCREENING 2018 HPV/Cotest (21-29) 2018 PAP SMEAR 2018 INFLUENZA VACCINE (#1) 2025 Insurance RX [facility] [employer] [facility] Advance Directives For more information, please contact: [phone] * Full Code (Latest Code Status on File) Date Activated Date Inactivated Comments 02/14/2018 2:36 PM 02/15/2018 3:17 PM Care Teams Construction Project Coordinator Relationship Specialty Start Date End Date Michi Gruber MD PCP - General Family Practice 09/28/17
--- OUTSIDE RECORDS SUMMARY | 2025-03-02 12:07 | XMS_ITS | Clinical Summary ---
Author Organization [facility] Virtual Care Address [address] [place] [phone] Phone Care Team Providers Care Waterside Worker Name Role Phone Michi Gruber MD Primary Care Prov ider Allergies Active Allergy Reactions Criticality Noted Date Comments Adhesive Tape-Silicones Hives High 02/13/2018 Azithromycin Hives,Other (See comments),Rash,Urtic aria High 04/11/2010 Reaction: Codeine Anaphylaxis,Anxiety, Other (See comments),Palpitatio ns High 09/28/2017 Other reaction(s): Chest Pain, Other Reaction: Chest Pain Penicillins Urticaria Medium 09/04/2021 Medications FLUoxetine (PROzac) 20 mg capsule Take 20 mg by mouth. Active meloxicam (MOBIC) 15 mg tablet Take 15 mg by mouth. Active LORazepam (ATIVAN) 0.5 mg tablet Take 0.5 mg by mouth every 6 hours as needed. Active amoxicillin (AMOXIL) 875 mg tablet amoxicillin 875 mg tablet Active butalbital-acet aminophen-caffe ine (FIORICET) 50-300-40 mg per capsule butalbital-aceta minophen-caffein e 50 mg-300 mg-[address] Active [address] (CYMBALTA) 20 mg capsule duloxetine 20 mg capsule,delayed release TAKE 2 CAPS DAILY FOR 14 DAYS, THEN 1 DAILY FOR 14 DAYS, THEN EVERY OTHER DAY FOR 14 DAYS Active famotidine (PEPCID) 20 mg tablet famotidine 20 mg tablet Active fluconazole (DIFLUCAN) 150 mg tablet fluconazole 150 mg tablet TAKE 1 TABLET BY MOUTH EVERY 72 HOURS NEEDED. 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 Nicotine dependence 01/28/2019 Morbid (severe) obesity due to excess calories 0 01/28/2019 Bloody discharge from right nipple 01/28/2019 Streptococcal tonsillitis 02/14/2018 Tobacco use 09/28/2017 Nausea 10/26/2012 Diarrhea 10/26/2012 Gastroesophageal reflux disease 05/13/2011 Migraine headache 04/11/2010 Immunizations Immunization Administration Dates Next Due Rho (D) Immune Globulin, IV or IM 09/20/2015, Surgical History Surgery Date Site/Laterality Comments SECTION CHOLECYSTECTOMY KNEE CARTILAGE SURGERY Medical History Medical History Date Comments Melena Hematochezia - - -intermittent. Consider IBD. (Added by TW Conv) Rheumatoid arthritis (HCC) Family History Medical History Relation Name Comments Cholelithiasis Other Cholelithiasi s - --mother and sister (Added by TW Conv) Relation Name Status Comments Other Social History Tobacco Use Types Packs/Day Years Used Date Smoking Tobacco: Some Days Smokeless Tobacco: Never Alcohol Use Standard Drinks/Week Comments No 0 (1 standard drink = 0.6 oz pur e alcohol) Comments Unknown Sex and Gender Information Value Date Recorded Sex Assigned at Not on file Legal Sex Female 1:02 PM FRENCH BINDER Gender Identity Not on file Sexual Orientation Not on file Obstetrics History Para Term AB IAB SAB Ectopic Multiple Livin g Live Births 1 Date Outcome GA Total Labor Labor/2nd/3rd Weight Sex Type Anes PTL Justina A1 A5 Name Clin Last Filed Vital Signs Vital Sign Reading Time Taken Comments Blood Pressure 123/76 07/08/2022 7:12 PM FRENCH BINDER Pulse 122 07/08/2022 7:12 PM FRENCH BINDER Temperature 36.8 C (98.3 F) 07/08/2022 7:12 PM FRENCH BINDER Respiratory Rate 16 07/08/2022 7:12 PM FRENCH BINDER Oxygen Saturation 97% 07/08/2022 7:12 PM FRENCH BINDER Inhaled Oxygen Concentration - - Weight 96.2 kg (212 lb) 07/08/2022 7:12 PM FRENCH BINDER Height 157.5 cm (5' 2) 07/08/2022 7:12 PM FRENCH BINDER Body Mass Index 38.78 07/08/2022 7:12 PM FRENCH BINDER Plan of Treatment Health Maintenance Due Date Last Done Comments Cervical Cancer Screening 1997 Depression Screening 1997 Hepatitis C Screening 1997 DTaP/Tdap/Td Vaccine (1 - Tdap) 2008 Varicella Vaccines (1 of 2 - 13+ 2-dose series) 2009 Hepatitis B Screening 2015 Regular Well Visit/Exam 18-64 2015 Pneumococcal vaccine <65 (1 of 2 - PCV) 2016 Covid-19 Vaccine (2 - 2023- season) 2024 HPV Vaccines (1 - 3-dose SCDM series) 2024 Influenza Vaccine (#1) 2025 Insurance [facility] CHOICE OOS BLUE [facility] CHOICE OOS BLUE [facility] CHOICE OOS Care Teams Waterside Worker Relationship Specialty Start Date End Date Michi Gruber MD [address] [place] [address] PCP - General Family Medicine 09/26/17
--- OUTSIDE RECORDS SUMMARY | 2025-03-02 12:07 | XMS_ITS | Clinical Summary ---
Author Organization [facility] Address [address] [place] [address] Care Team Providers Care Motor Teacher Name Role Phone Michi Gruber MD Primary Care Provider + Source Comments [facility],non-owned Affiliates and Associated Physician Practices is amultiple site organization consisting of ambulatory clinics and hospital sitesin [place], [place], [place] and [place]. This disclosure is being madepursuant to the Care Everywhere program and may not contain all information available regarding this patient. Last updated 18.[facility] Allergies Active Allergy Reactions Criticality Noted Date [...] and heating? Not hard at all 07/31/2022 [facility] [place] of Occupat ional Health - Occupational Stress [...] place to sleep or slept in a m[facility]p (including now)? No 07/31/2022 Comments No Sex and Gender Information Value Date Recorded Sex Assigned at Not on file Legal Sex Female 5:45 AM SENIOR BUDGET ANALYST Gender Identity Not on file Sexual Orientation Not on file Last Filed Vital Signs Vital Sign Reading Time Taken Comments Blood Pressure 112/73 08/16/2022 11:25 AM SENIOR BUDGET ANALYST Pulse 108 08/16/2022 11:25 AM SENIOR BUDGET ANALYST Temperature 36.5 C (97.7 F) 08/01/2022 12:05 PM SENIOR BUDGET ANALYST Respiratory Rate 20 08/01/2022 12:0 5 PM SENIOR BUDGET ANALYST Oxygen Saturation 99% 08/01/2022 12: 05 PM SENIOR BUDGET ANALYST Inhaled Oxygen Concentration - - Weight 92.4 kg (203 lb 12.8 oz) 023 11:13 AM SENIOR BUDGET ANALYST Height 157.5 cm (5' 2) 07/31/2022 11:1 3 AM SENIOR BUDGET ANALYST Body Mass Index 37.28 07/31/2022 11:13 AM SENIOR BUDGET ANALYST Plan of Treatment Health Maintenance Due Date Last Done Comments HIV SCREENING 2012 DTAP/TDAP/TD VACCINES (1 - Tdap) 2016 HEPATITIS B VACCINE (1 of 3 - 19+ 3-dose series) 2016 PAP SMEAR 2018 COVID-19 VACCINE (2 - 2023-2 5 season) 2024 01/15/2021 HPV VACCINE (1 - 3-dose SCDM series) 2024 DEPRESSION SCREENING 07/21/2024 INFLUENZA VACCINE (#1) 2025 ZOSTER VACCINE (1 of 2) 2047 [...] HEPATITIS SCREEN ACUTE STAT 07/31/2022 11:39 AM SENIOR BUDGET ANALYST Elevated liver enzymes from Last 3 Months or Most Recently Relevant to Health Maintenance Results * HEPATITIS SCREEN ACUTE (07/31/2022 11:39 AM SENIOR BUDGET ANALYST) HAV Antibody IgM Non Reactive Non Reactive 07/31/2022 12:53 PM SENIOR BUDGET ANALYST [facility] HBsAg Non Reactive Non Reactive 07/31/2022 12:53 PM SENIOR BUDGET ANALYST [facility] HBc Antibody IgM Non Reactive Non Reactive 07/31/2022 12:53 PM SENIOR BUDGET ANALYST [facility] HCV Antibody Screen Non Reactive Non Reactive 07/31/2022 12:53 PM SENIOR BUDGET ANALYST [facility] Blood BLOOD SPECIMEN / Unknown Venipuncture / Unknown 07/31/2022 11:39 AM SENIOR BUDGET ANALYST 07/31/2022 11:50 AM SENIOR BUDGET ANALYST Narrative [facility] - 07/31/2022 12:53 PM SENIOR BUDGET ANALYST Non Reactive - Antibodies to Hepatitis C virus (HCV) were not detected, result does not exclude early acute HCV infection. Herb Burgess MD LAB - CHEMISTRY ORDERABLES Final Result Performing Organization Address City/State/[facility] Co de Phone Number [facility] [address] [place] [address] from Last 3 Months or Most Recently Relevant to Health Maintenance Insurance [address] [place] [phone] MEDICAID - [place] SELF PAY NO INSURANCE Member Subscriber Plan / Payer (Ef fective for All Dates) Name:Kleber Bullock Member ID:Not on file Relation to Subscriber:Not on file Name:KLEBER BULLOCK Subscriber ID:Not on file (Home) Address: [address] [place] [address] [place] [phone] Payer ID:Not on file Group ID:Not on file Type:Self Pay Address: [place], [place] Advance Directives * Full Code (Latest Code Status on File) Date Activated Date Inactivated Comments 07/31/2022 3:05 PM 08/01/2022 7:38 PM Care Teams Motor Teacher Relationship Specialty Start Date End Date Michi Gruber MD [address] [address] PCP - General 09/19/21
[2025-03-02 12:08] VITALS: BP 129/72; PULSE 82; RESP 16; TEMP 36.7; O2SAT 100
--- NOTE | 2025-03-02 12:34 | ED_ITS ---
HPI - Skin/Abscess/Foreign Bdy General Chief complaint: Skin/Abscess/Foreign Body Stated complaint: rash on eye lids Time Seen by Provider: 03/02/25 12:10 Source: patient Mode of arrival: ambulatory Limitations: no limitations History of Present Illness HPI narrative: Rafaela is a 29-year-old female patient presenting to the clinic today with complaints of bilateral eyelid rash x 4 days. She denies any new makeup, lotions, soaps, shampoos, or detergents. States that she gets this frequently where she develops a itchy burning rash on her eyelids. Denies any fevers, chills, body aches. Denies any visual changes. Denies any injury. Related Data Home Medications ?Medication ?Instructions ?Recorded ?Confirmed ?Last Taken ?Type sertraline 100 mg tablet 50 mg PO DAILY 05/18/24 11/24/24 05/27/24 07:00 History dextroamphetamine-amphetamine ER PO 11/08/24 11/24/24 Unknown History 10 mg 24hr capsule,extend release Allergies Allergy/AdvReac Type Severity Reaction Status Date / Time codeine Allergy Severe tight Verified 03/02/25 12:19 chest, shallow breathing adhesive Allergy Intermediate HIVES Verified 03/02/25 12:19 azithromycin Allergy Mild Skin Verified 03/02/25 12:19 irritation penicillin G AdvReac Intermediate Fever Verified 03/02/25 12:19 PMFSH Past Medical History Medical History (Updated 03/02/25 @ 12:36 by Derek Solares APRN) Numbness and tingling of right face Neck pain on right side ADHD (attention deficit hyperactivity disorder) Menorrhagia Pruritus of Suppression of menstruation 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 Hypermobility syndrome GERD (gastroesophageal reflux disease) Anxiety Surgical History Surgical History History of hysteroscopy (05/27/24) Hysteroscopy with uterine curettings/ Endometrial ablation / Benign pathology Delivery by section (08/22/22) rpt c/s with bilateral tubal ligation Delivery by section (09/19/15) primary c/s History of cholecystectomy History of knee surgery Family History Family History Mother Hypertension Sibling Asthma Other Family history of arthritis Family history of cardiovascular disease Social History Social History Smoking packs per day: 0.5 Smoking cigarettes per day: 10.0 Years smoked: 3 Smoking pack-years: 1.50 Smoking status: Current every day smoker Tobacco type: cigarettes and e-cigarettes/vaping Second hand tobacco smoke exposure: No Additional smoking assessment comments: vaping for 1 year Alcohol intake: former Alcohol use details: rare Substance use: never Substance use type: does not use Do You Feel Safe in your Home?: Yes Lack of Transportation: No Lack of Food: Never True Current Housing: I Have Housing Concerned About Future Housing: No Difficulty Paying Gas/Electric Bills: No Difficulty Paying for Meds: No Currently Unemployed: No Education: Trade/Vocational Certificate Difficulty w/ Childcare or Family Care: No Living arrangements: with family Additional living arrangements comments: lives with fiance Occupation/Education: occupation 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 There is no relevant family history pertinent to the patient complaint. Exam Narrative: General: Well-developed, well nourished, in no apparent distress Head: Normocephalic, atraumatic Eyes: Pupils equally round and reactive to light bilaterally, EOM intact, sclera and conjunctive clear, no discharge, red, raised, blistery appearing rash to bilateral upper eyelids and to the medial lower eyelid Ears: TMs intact and clear, ear canals clear, no drainage, grossly hearing normal. Nose: Nares patent, no discharge, no inflammation, no sinus tenderness. Mouth: Oropharynx without lesions or masses, good dentition, MMM. Neck: Supple, trachea midline, no enlargement of anterior or posterior cervical nodes, no thyroid masses or goiter palpable. Cardio: Regular rate and rhythm, s1 and s2 normal, no murmur appreciated. Resp: Clear to auscultation bilaterally anteriorly and posteriorly, no rhonchi, rales, wheezing or rubs Course Course Emergency Course: Portions of this record may have been created with voice recognition software. Level of Care: Express Care Visit Vital Signs Vital signs: Vital Signs Temperature 36.7 C 03/02/25 12:08 Pulse Rate 82 03/02/25 12:08 Respiratory Rate 16 03/02/25 12:08 Blood Pressure 129/72 03/02/25 12:08 Pulse Oximetry 100 03/02/25 12:08 Oxygen Delivery Room Air 03/02/25 12:08 Temperature 36.7 C 03/02/25 12:08 Pulse Rate 82 03/02/25 12:08 Respiratory Rate 16 03/02/25 12:08 Blood Pressure 129/72 03/02/25 12:08 Pulse Oximetry 100 03/02/25 12:08 Oxygen Delivery Room Air 03/02/25 12:08 Vital signs reviewed MDM - Skin/Abscess/Foreign Bdy MDM Narrative Medical decision making narrative: At the time of visit patient is resting comfortably on the exam table. Patient appears to be nontoxic. Complaints of bilateral eyelid rash. She denies any new makeup, lotions, soaps, shampoos, or detergents. States that she gets this frequently where she develops a itchy burning rash on her eyelids. Denies any fevers, chills, body aches. Denies any visual changes. Denies any injury. On exam patient has red, and blistery appearing rash on upper eyelids and area to the bilateral medial lower eyelids. Plan: I suspect patient has eyelid dermatitis. Prescription for triamcinolone cream was sent to the pharmacy. Avoid getting the cream in your eye. Supportive measures were discussed with the patient and they voiced understanding discharge instructions and agrees to treatment plan. Return precautions reviewed Differential Diagnosis Differential diagnosis: Likely abscess of skin or subcutaneous tissue, viral e xanthem, dermatophytosis, urticaria, herpes zoster, allergic reaction to drug, cellulitis, eczema, insect bites, impetigo and contact dermatitis Discharge Plan Discharge Clinical Impression: Dermatitis of eyelid Qualifiers: Dermatitis of eyelid type: unspecified Laterality: bilateral Qualified Code(s): H01.9 - Unspecified inflammation of eyelid Patient Disposition: Home Condition: Stable Instructions: Antibiotic Form Additional Instructions: Apply triamcinolone cream as directed Avoid hot showers Moisturize skin twice daily using a non scented lotion such as Lubriderm, Aquaphor, or Cetaphil Avoid scratching as this can cause a secondary infection May take benadryl 25-50mg every 6 hours as needed for itching. Follow up with your PCP in 3-5 days if symptoms persist or sooner if they worsen Go to the Emergency Room if symptoms worsen- fever, rash spreading with treatment, shortness of breath, tongue swelling, drooling, or chest pain Patient Language: Algerian Prescriptions: New triamcinolone acetonide 0.1 % cream 1 applic topical BID 7 Days Qty: 30 0RF No Action dextroamphetamine-amphetamine 10 mg capsule,extended release 24hr PO sertraline 100 mg tablet 50 mg PO DAILY Follow-up/Referrals: Michi Gruber MD [Primary Care Provider] - Time of Disposition: 12:36 Quality NIHSS Nursing Documentation ED NIHSS nursing documentation: reviewed/agree
== END 2025-03-02 12:39 | disposition home or self-care (01) ==
PROVIDERS: Emergency Provider Nurse Practitioner Family; PCP Family Medicine Adolescent Medicine
DX: H01.9 Unspecified inflammation of eyelid (principal); F17.210 Nicotine dependence, cigarettes, uncomplicated; F17.290 Nicotine dependence, other tobacco product, uncomplicated; K21.9 Gastro-esophageal reflux disease without esophagitis; F90.9 Attention-deficit hyperactivity disorder, unspecified type; Z14.1 Cystic fibrosis carrier; F41.9 Anxiety disorder, unspecified; M35.7 Hypermobility syndrome
CPT/HCPCS: 99213; G0463

== ENCOUNTER 2025-03-03 13:18 | Outpatient (CLI) | payer OTHER, SELFPAY ==
--- OUTSIDE RECORDS SUMMARY | 2025-03-03 13:22 | XMS_ITS | Clinical Summary ---
Author Organization [facility] Virtual Care Address [address] [place] [phone] Phone Care Team Providers Care Ski Patrol Name Role Phone Michi Gruber MD Primary [...] on file Legal Sex Female 1:02 PM SAFETY INTERN Gender Identity Not on file Sexual Orientation Not on file Obstetrics History Para Term AB IAB SAB Ectopic Multiple Livin g Live Births 1 Date Outcome GA Total Labor Labor/2nd/3rd Weight Sex Type Anes PTL Justina A1 A5 Name Clin Last Filed Vital Signs Vital Sign Reading Time Taken Comments Blood Pressure 123/76 07/08/2022 7:12 PM SAFETY INTERN Pulse 122 07/08/2022 7:12 PM SAFETY INTERN Temperature 36.8 C (98.3 F) 07/08/2022 7:12 PM SAFETY INTERN Respiratory Rate 16 07/08/2022 7:12 PM SAFETY INTERN Oxygen Saturation 97% 07/08/2022 7:12 PM SAFETY INTERN Inhaled Oxygen Concentration - - Weight 96.2 kg (212 lb) 07/08/2022 7:12 PM SAFETY INTERN Height 157.5 cm (5' 2) 07/08/2022 7:12 PM SAFETY INTERN Body Mass Index 38.78 07/08/2022 7:12 PM SAFETY INTERN Plan of Treatment Health Maintenance Due Date [...] series) 2024 Influenza Vaccine (#1) 2025 Insurance [facility] CHOICE OOS BLUE ACC CHOICE OOS BLUE [facility] CHOICE OOS Care Teams Ski Patrol Relationship Specialty Start Date End Date Michi Gruber MD [address] [place] [address] PCP - General Family Medicine 09/26/17
--- OUTSIDE RECORDS SUMMARY | 2025-03-03 13:22 | XMS_ITS | Clinical Summary ---
Author Organization [facility] Address [address] [place] [address] Care Team Providers Care Fruit Press Operator Name Role Phone Michi Gruber MD Primary Care Provider + Source Comments [facility],non-owned Affiliates and Associated Physician Practices is amultiple site organization consisting of ambulatory clinics and hospital sitesin [place], [place] and [place]. This disclosure is being madepursuant to the Care Everywhere program and may not contain all information available regarding this patient. Last updated 18.[facility] Allergies Active Allergy Reactions Criticality Noted Date [...] and heating? Not hard at all 07/31/2022 [facility] [place] of Occupat ional Health - Occupational Stress [...] place to sleep or slept in a half-way (including now)? No 07/31/2022 Comments No Sex and Gender Information Value Date Recorded Sex Assigned at Not on file Legal Sex Female 5:45 AM CAMP COORDINATOR Gender Identity Not on file Sexual Orientation Not on file Last Filed Vital Signs Vital Sign Reading Time Taken Comments Blood Pressure 112/73 08/16/2022 11:25 AM CAMP COORDINATOR Pulse 108 08/16/2022 11:25 AM CAMP COORDINATOR Temperature 36.5 C (97.7 F) 08/01/2022 12:05 PM CAMP COORDINATOR Respiratory Rate 20 08/01/2022 12:0 5 PM CAMP COORDINATOR Oxygen Saturation 99% 08/01/2022 12: 05 PM CAMP COORDINATOR Inhaled Oxygen Concentration - - Weight 92.4 kg (203 lb 12.8 oz) 023 11:13 AM CAMP COORDINATOR Height 157.5 cm (5' 2) 07/31/2022 11:1 3 AM CAMP COORDINATOR Body Mass Index 37.28 07/31/2022 11:13 AM CAMP COORDINATOR Plan of Treatment Health Maintenance Due Date [...] HEPATITIS SCREEN ACUTE STAT 07/31/2022 11:39 AM CAMP COORDINATOR Elevated liver enzymes from Last 3 Months or Most Recently Relevant to Health Maintenance Results * HEPATITIS SCREEN ACUTE (07/31/2022 11:39 AM CAMP COORDINATOR) HAV Antibody IgM Non Reactive Non Reactive 07/31/2022 12:53 PM CAMP COORDINATOR [facility] HBsAg Non Reactive Non Reactive 07/31/2022 12:53 PM CAMP COORDINATOR [facility] HBc Antibody IgM Non Reactive Non Reactive 07/31/2022 12:53 PM CAMP COORDINATOR [facility] HCV Antibody Screen Non Reactive Non Reactive 07/31/2022 12:53 PM CAMP COORDINATOR [facility] Blood BLOOD SPECIMEN / Unknown Venipuncture / Unknown 07/31/2022 11:39 AM CAMP COORDINATOR 07/31/2022 11:50 AM CAMP COORDINATOR Narrative [facility] - 07/31/2022 12:53 PM CAMP COORDINATOR Non Reactive - Antibodies to Hepatitis C virus (HCV) were not detected, result does not exclude early acute HCV infection. Herb Burgess MD LAB - CHEMISTRY ORDERABLES Final Result Performing Organization Address City/State/[facility] Co de Phone Number [facility] [address] [place] [address] from Last 3 Months or Most Recently Relevant to Health Maintenance Insurance [address] [place] [phone] MEDICAID - [place] SELF PAY NO INSURANCE Member Subscriber Plan / Payer (Ef fective for All Dates) Name:Kleber Bullcok Member ID:Not on file Relation to Subscriber:Not on file Name:KLEBER BULLOCK Subscriber ID:Not on file (Home) Address: [address] [place] [address] [place] [phone] Payer ID:Not on file Group ID:Not on file Type:Self Pay Address: [place], [place] Advance Directives * Full Code (Latest Code Status on File) Date Activated Date Inactivated Comments 07/31/2022 3:05 PM 08/01/2022 7:38 PM Care Teams Fruit Press Operator Relationship Specialty Start Date End Date Michi Gruber MD [address] [address] PCP - General 09/19/21
--- OUTSIDE RECORDS SUMMARY | 2025-03-03 13:22 | XMS_ITS | Clinical Summary ---
Author Organization [facility] Address [address] [place] [address] Phone Care Team Providers Care Deputy Juvenile Officer Name Role Phone Michi Gruber MD Primary Care Provider [phone] Allergies Active Allergy Reactions Criticality Noted Date Comments Adhesive Tape-Silicones Hives High 02/13/2018 Azithromycin Hives High 09/28/2017 Codeine Anxiety Low 09/28/2017 Medications vits15/iron/foli c/dss ( VIT 81-[id number]-DS S ORAL) Take by mouth. Active ferrous [...] Comments Blood Pressure 103/57 06/02/2024 1:12 AM SYSTEMS NAVIGATOR Pulse 84 06/02/2024 1:12 AM SYSTEMS NAVIGATOR Temperature 36.6 C (97.8 F) 06/02/2024 1:40 AM SYSTEMS NAVIGATOR Respiratory Rate 18 06/02/2024 1:12 AM SYSTEMS NAVIGATOR Oxygen Saturation 97% 06/02/2024 1:12 AM SYSTEMS NAVIGATOR Inhaled Oxygen Concentration - - Weight 93.4 kg (206 lb) 07/30/2022 3:27 PM SYSTEMS NAVIGATOR Height 157.5 cm (5' 2) 07/30/2022 3:27 PM SYSTEMS NAVIGATOR Body Mass Index 37.68 07/30/2022 3:27 PM SYSTEMS NAVIGATOR Plan of Treatment Health Maintenance Due Date Last Done Comments HPV VACCINES (1 - 3-dose series) 2012 DTAP/TDAP/TD VACCINES (1 - Tdap) 2016 HEPATITIS B VACCINES (1 of 3 - 19+ 3-dose series) 05/22 CERVICAL CANCER SCREENING 2018 HPV/Cotest (21-29) 2018 PAP SMEAR 2018 INFLUENZA VACCINE (#1) 2025 Insurance RX [facility] Advance Directives For more information, please contact: [phone] * Full Code (Latest Code Status on File) Date Activated Date Inactivated Comments 02/14/2018 2:36 PM 02/15/2018 3:17 PM Care Teams Deputy Juvenile Officer Relationship Specialty Start Date End Date Michi Gruber MD PCP - General Family Practice 09/28/17
== END 2025-03-03 13:19 | disposition home or self-care (01) ==
LOC: ANHLAB 13:20
PROVIDERS: PCP Family Medicine Adolescent Medicine; Visit Provider Nurse Practitioner Family
DX: Z11.1 Encounter for screening for respiratory tuberculosis (principal)
CPT/HCPCS: 86480

== ENCOUNTER 2025-05-25 16:43 | Emergency (ER) | payer OTHER, SELFPAY ==
[2025-05-25 16:54] VITALS: BP 129/75; PULSE 71; RESP 16; TEMP 36.8; O2SAT 99
--- NOTE | 2025-05-25 19:43 | PC.NURSE ---
Called x 2 for room, no answer, marked LWBS.
--- OUTSIDE RECORDS SUMMARY | 2025-05-26 15:14 | XMS_ITS | Clinical Summary ---
Author Organization [facility] Address [address] [place] [address] Care Team Providers Care Wood Block Artist Name Role Phone Michi Gruber MD Primary Care Provider + Source Comments [facility],non-owned Affiliates and Associated Physician Practices is amultiple site organization consisting of ambulatory clinics and hospital sitesin [place], [place], [place] and [place]. This disclosure is being madepursuant to the Care Everywhere program and may not contain all information available regarding this patient. Last updated 18.[facility] Allergies Active Allergy Reactions Criticality Noted Date [...] and heating? Not hard at all 07/31/2022 [facility] [place] [facility] of Occupat ional Health - Occupational Stress [...] place to sleep or slept in a alf (including now)? No 07/31/2022 Comments No Sex and Gender Information Value Date Recorded Sex Assigned at Not on file Legal Sex Female 5:45 AM DISPATCHER ELECTRIC POWER Gender Identity Not on file Sexual Orientation Not on file Last Filed Vital Signs Vital Sign Reading Time Taken Comments Blood Pressure 112/73 08/16/2022 11:25 AM DISPATCHER ELECTRIC POWER Pulse 108 08/16/2022 11:25 AM DISPATCHER ELECTRIC POWER Temperature 36.5 C (97.7 F) 08/01/2022 12:05 PM DISPATCHER ELECTRIC POWER Respiratory Rate 20 08/01/2022 12:0 5 PM DISPATCHER ELECTRIC POWER Oxygen Saturation 99% 08/01/2022 12: 05 PM DISPATCHER ELECTRIC POWER Inhaled Oxygen Concentration - - Weight 92.4 kg (203 lb 12.8 oz) 023 11:13 AM DISPATCHER ELECTRIC POWER Height 157.5 cm (5' 2) 07/31/2022 11:1 3 AM DISPATCHER ELECTRIC POWER Body Mass Index 37.28 07/31/2022 11:13 AM DISPATCHER ELECTRIC POWER Plan of Treatment Health Maintenance Due Date Last Done Comments HIV SCREENING 2012 DTAP/TDAP/TD VACCINES (1 - Tdap) 2016 HEPATITIS B VACCINE (1 of 3 - 19+ 3-dose series) 2016 PAP SMEAR 2018 HPV VACCINE (1 - 3-dose SCDM series) 2024 DEPRESSION SCREENING 07/21/2024 COVID-19 VACCINE (2 - 2024-2 6 season) 2025 01/15/2021 INFLUENZA VACCINE (#1) 2025 ZOSTER VACCINE (1 [...] HEPATITIS SCREEN ACUTE STAT 07/31/2022 11:39 AM DISPATCHER ELECTRIC POWER Elevated liver enzymes from Last 3 Months or Most Recently Relevant to Health Maintenance Results * HEPATITIS SCREEN ACUTE (07/31/2022 11:39 AM DISPATCHER ELECTRIC POWER) HAV Antibody IgM Non Reactive Non Reactive 07/31/2022 12:53 PM DISPATCHER ELECTRIC POWER [facility] HBsAg Non Reactive Non Reactive 07/31/2022 12:53 PM DISPATCHER ELECTRIC POWER [facility] HBc Antibody IgM Non Reactive Non Reactive 07/31/2022 12:53 PM DISPATCHER ELECTRIC POWER [facility] HCV Antibody Screen Non Reactive Non Reactive 07/31/2022 12:53 PM DISPATCHER ELECTRIC POWER [facility] Blood BLOOD SPECIMEN / Unknown Venipuncture / Unknown 07/31/2022 11:39 AM DISPATCHER ELECTRIC POWER 07/31/2022 11:50 AM DISPATCHER ELECTRIC POWER Narrative [facility] - 07/31/2022 12:53 PM DISPATCHER ELECTRIC POWER Non Reactive - Antibodies to Hepatitis C virus (HCV) were not detected, result does not exclude early acute HCV infection. Herb Burgess MD LAB - CHEMISTRY ORDERABLES Final Result Performing Organization Address City/State/[facility] Co de Phone Number [facility] [address] [place] [address] from Last 3 Months or Most Recently Relevant to Health Maintenance Insurance [address] [place] [phone] MEDICAID [place] SELF PAY NO INSURANCE Member Subscriber Plan / Payer (Ef fective for All Dates) Name:Kleber Bullock Member ID:Not on file Relation to Subscriber:Not on file Name:KLEBER BULLOCK Subscriber ID:Not on file (Home) Address: [address] [place] [address] [place] [phone] Payer ID:Not on file Group ID:Not on file Type:Self Pay Address: [place], [place] Advance Directives * Full Code (Latest Code Status on File) Date Activated Date Inactivated Comments 07/31/2022 3:05 PM 08/01/2022 7:38 PM Care Teams Wood Block Artist Relationship Specialty Start Date End Date Michi Gruber MD [address] [address] PCP - General 09/19/21
--- OUTSIDE RECORDS SUMMARY | 2025-05-26 15:14 | XMS_ITS | Clinical Summary ---
Author Organization [facility] Address [address] [place] [phone] Phone Care Team Providers Care Senior Sales Associate Name Role Phone Michi Gruber MD Primary [...] on file Legal Sex Female 1:02 PM FLOOD CONTROL ENGINEER Gender Identity Not on file Sexual Orientation Not on file Obstetrics History Para Term AB IAB SAB Ectopic Multiple Livin g Live Births 1 Date Outcome GA Total Labor Labor/2nd/3rd Weight Sex Type Anes PTL Justina A1 A5 Name Clin Last Filed Vital Signs Vital Sign Reading Time Taken Comments Blood Pressure 123/76 07/08/2022 7:12 PM FLOOD CONTROL ENGINEER Pulse 122 07/08/2022 7:12 PM FLOOD CONTROL ENGINEER Temperature 36.8 C (98.3 F) 07/08/2022 7:12 PM FLOOD CONTROL ENGINEER Respiratory Rate 16 07/08/2022 7:12 PM FLOOD CONTROL ENGINEER Oxygen Saturation 97% 07/08/2022 7:12 PM FLOOD CONTROL ENGINEER Inhaled Oxygen Concentration - - Weight 96.2 kg (212 lb) 07/08/2022 7:12 PM FLOOD CONTROL ENGINEER Height 157.5 cm (5' 2) 07/08/2022 7:12 PM FLOOD CONTROL ENGINEER Body Mass Index 38.78 07/08/2022 7:12 PM FLOOD CONTROL ENGINEER Plan of Treatment Health Maintenance Due Date Last Done Comments Cervical Cancer Screening 1997 Depression Screening 1997 Hepatitis C Screening 1997 DTaP/Tdap/Td Vaccine (1 - Tdap) 2008 Varicella Vaccines (1 of 2 - 13+ 2-dose series) 2009 Hepatitis B Screening 2015 Regular Well Visit/Exam 18-64 2015 Pneumococcal vaccine <65 (1 of 2 - PCV) 2016 HPV Vaccines (1 - 3-dose SCDM series) 2024 Covid-19 Vaccine (2 - 2024- season) 2025 Influenza Vaccine (#1) 2025 Insurance [facility] OOS BLUE ACC CHOICE OOS BLUE [facility] OOS Care Teams Senior Sales Associate Relationship Specialty Start Date End Date Michi Gruber MD PCP - General Family Medicine 09/26/17
--- OUTSIDE RECORDS SUMMARY | 2025-05-26 15:14 | XMS_ITS | Clinical Summary ---
Author Organization [facility] Address [address] [place] [address] Phone Care Team Providers Care Competitive Shopper Name Role Phone Michi Gruber MD Primary Care Provider +1- [phone] Allergies Active Allergy Reactions Criticality Noted Date Comments Adhesive Tape-Silicones Hives High 02/13/2018 Azithromycin Hives High 09/28/2017 Codeine Anxiety Low 09/28/2017 Medications vits15/iron/foli c/dss ( VIT 49-JMPL-YRVXN-DS S ORAL) Take by mouth. Active ferrous [...] Encounters Date Type Department Care Team Description 05/17/2025 External Device Data [facility] Provider, Abstract 05/17/2025 External Device Data [facility] Provider, Abstract 05/17/2025 External Device Data [facility] Provider, Abstract 04/06/2025 External Device Data [facility] Provider, Abstract 04/05/2025 External Device Data [facility] Provider, Abstract 03/29/2025 External Device Data [facility] Provider, Abstract 03/08/2025 External Device Data [facility] Provider, Abstract 02/23/2025 External Device Data [facility] Provider, [...] Comments Blood Pressure 103/57 06/02/2024 1:12 AM PHARMACEUTICAL SCIENTIST Pulse 84 06/02/2024 1:12 AM PHARMACEUTICAL SCIENTIST Temperature 36.6 C (97.8 F) 06/02/2024 1:40 AM PHARMACEUTICAL SCIENTIST Respiratory Rate 18 06/02/2024 1:12 AM PHARMACEUTICAL SCIENTIST Oxygen Saturation 97% 06/02/2024 1:12 AM PHARMACEUTICAL SCIENTIST Inhaled Oxygen Concentration - - Weight 93.4 kg (206 lb) 07/30/2022 3:27 PM PHARMACEUTICAL SCIENTIST Height 157.5 cm (5' 2) 07/30/2022 3:27 PM PHARMACEUTICAL SCIENTIST Body Mass Index 37.68 07/30/2022 3:27 PM PHARMACEUTICAL SCIENTIST Plan of Treatment Health Maintenance Due Date Last Done Comments DTAP/TDAP/TD VACCINES (1 - Tdap) 2016 HEPATITIS B VACCINES (1 of 3 - 19+ 3-dose series) 05/22 CERVICAL CANCER SCREENING 2018 HPV/Cotest (21-29) 2018 PAP SMEAR 2018 HPV VACCINES (1 - 3-dose SCDM series) 2024 INFLUENZA VACCINE (#1) 2025 Insurance RX [facility] Advance Directives For more information, please contact: [phone] * Full Code (Latest Code Status on File) Date Activated Date Inactivated Comments 02/14/2018 2:36 PM 02/15/2018 3:17 PM Care Teams Competitive Shopper Relationship Specialty Start Date End Date Michi Gruber MD PCP - General Family Practice 09/28/17
--- OUTSIDE RECORDS SUMMARY | 2025-05-26 15:44 | XMS_ITS | Clinical Summary ---
Author Organization [facility] Address [address] [place] [address] Phone Care Team Providers Care Spindle Plumber Name Role Phone Michi Gruber MD Primary Care Provider +1- [phone] Allergies Active Allergy Reactions Criticality Noted Date Comments Adhesive Tape-Silicones Hives High 02/13/2018 Azithromycin Hives High 09/28/2017 Codeine Anxiety Low 09/28/2017 Medications vits15/iron/foli c/dss ( VIT 59-FUAX-PZDSC-DS S ORAL) Take by mouth. Active ferrous [...] Comments Blood Pressure 103/57 06/02/2024 1:12 AM BUSINESS PROCESS CONSULTANT Pulse 84 06/02/2024 1:12 AM BUSINESS PROCESS CONSULTANT Temperature 36.6 C (97.8 F) 06/02/2024 1:40 AM BUSINESS PROCESS CONSULTANT Respiratory Rate 18 06/02/2024 1:12 AM BUSINESS PROCESS CONSULTANT Oxygen Saturation 97% 06/02/2024 1:12 AM BUSINESS PROCESS CONSULTANT Inhaled Oxygen Concentration - - Weight 93.4 kg (206 lb) 07/30/2022 3:27 PM BUSINESS PROCESS CONSULTANT Height 157.5 cm (5' 2) 07/30/2022 3:27 PM BUSINESS PROCESS CONSULTANT Body Mass Index 37.68 07/30/2022 3:27 PM BUSINESS PROCESS CONSULTANT Plan of Treatment Health Maintenance Due Date [...] Advance Directives For more information, please contact: [phone] * Full Code (Latest Code Status on File) Date Activated Date Inactivated Comments 02/14/2018 2:36 PM 02/15/2018 3:17 PM Care Teams Spindle Plumber Relationship Specialty Start Date End Date Michi Gruber MD PCP - General Family Practice 09/28/17
--- OUTSIDE RECORDS SUMMARY | 2025-05-26 15:44 | XMS_ITS | Clinical Summary ---
Author Organization [facility] Address [address] [place] [address] Care Team Providers Care Certified Composites Technician Name Role Phone Michi Gruber MD Primary Care Provider + Source Comments [facility],non-owned Affiliates and Associated Physician Practices is amultiple site organization consisting of ambulatory clinics and hospital sitesin [place], [place], [place] and [place]. This disclosure is being madepursuant to the Care Everywhere program and may not contain all information available regarding this patient. Last updated 18.[facility] Allergies Active Allergy Reactions Criticality Noted Date [...] and heating? Not hard at all 07/31/2022 [facility] [place] of Occupat ional Health - Occupational Stress [...] place to sleep or slept in a skilled nursing (including now)? No 07/31/2022 Comments No Sex and Gender Information Value Date Recorded Sex Assigned at Not on file Legal Sex Female 5:45 AM PROJECT MANAGER INDUSTRIAL Gender Identity Not on file Sexual Orientation Not on file Last Filed Vital Signs Vital Sign Reading Time Taken Comments Blood Pressure 112/73 08/16/2022 11:25 AM PROJECT MANAGER INDUSTRIAL Pulse 108 08/16/2022 11:25 AM PROJECT MANAGER INDUSTRIAL Temperature 36.5 C (97.7 F) 08/01/2022 12:05 PM PROJECT MANAGER INDUSTRIAL Respiratory Rate 20 08/01/2022 12:0 5 PM PROJECT MANAGER INDUSTRIAL Oxygen Saturation 99% 08/01/2022 12: 05 PM PROJECT MANAGER INDUSTRIAL Inhaled Oxygen Concentration - - Weight 92.4 kg (203 lb 12.8 oz) 023 11:13 AM PROJECT MANAGER INDUSTRIAL Height 157.5 cm (5' 2) 07/31/2022 11:1 3 AM PROJECT MANAGER INDUSTRIAL Body Mass Index 37.28 07/31/2022 11:13 AM PROJECT MANAGER INDUSTRIAL Plan of Treatment Health Maintenance Due Date [...] HEPATITIS SCREEN ACUTE STAT 07/31/2022 11:39 AM PROJECT MANAGER INDUSTRIAL Elevated liver enzymes from Last 3 Months or Most Recently Relevant to Health Maintenance Results * HEPATITIS SCREEN ACUTE (07/31/2022 11:39 AM PROJECT MANAGER INDUSTRIAL) HAV Antibody IgM Non Reactive Non Reactive 07/31/2022 12:53 [address] [facility] HBsAg Non Reactive Non Reactive 07/31/2022 12:53 [address] [facility] HBc Antibody IgM Non Reactive Non Reactive 07/31/2022 12:53 [address] [facility] HCV Antibody Screen Non Reactive Non Reactive 07/31/2022 12:53 [address] [facility] Blood BLOOD SPECIMEN / Unknown Venipuncture / Unknown 07/31/2022 11:39 AM PROJECT MANAGER INDUSTRIAL 07/31/2022 11:50 AM PROJECT MANAGER INDUSTRIAL Narrative [facility] - 07/31/2022 12:53 PM PROJECT MANAGER INDUSTRIAL Non Reactive - Antibodies to Hepatitis C virus (HCV) were not detected, result does not exclude early acute HCV infection. Herb Burgess MD LAB - CHEMISTRY ORDERABLES Final Result Performing Organization Address City/State/[facility] Co de Phone Number [facility] [address] [place] [address] from Last 3 Months or Most Recently Relevant to Health Maintenance Insurance [address] [place] [phone] MEDICAID [place] SELF PAY NO INSURANCE Member Subscriber Plan / Payer (Ef fective for All Dates) Name:Kleber Bullock Member ID:Not on file Relation to Subscriber:Not on file Name:KLEBER BULLOCK Subscriber ID:Not on file (Home) Address: [address] [place] [address] [place] [phone] Payer ID:Not on file Group ID:Not on file Type:Self Pay Address: [place], [place] Advance Directives * Full Code (Latest Code Status on File) Date Activated Date Inactivated Comments 07/31/2022 3:05 PM 08/01/2022 7:38 PM Care Teams Certified Composites Technician Relationship Specialty Start Date End Date Michi Gruber MD [address] [address] PCP - General 09/19/21
--- OUTSIDE RECORDS SUMMARY | 2025-05-26 15:44 | XMS_ITS | Clinical Summary ---
Author Organization [facility] Address [address] [place] [phone] Phone Care Team Providers Care Inspector Conveyor Line Name Role Phone Michi Gruber MD Primary [...] on file Legal Sex Female 1:02 PM PROFESSOR OF PHILOSOPHY Gender Identity Not on file Sexual Orientation Not on file Obstetrics History Para Term AB IAB SAB Ectopic Multiple Livin g Live Births 1 Date Outcome GA Total Labor Labor/2nd/3rd Weight Sex Type Anes PTL Justina A1 A5 Name Clin Last Filed Vital Signs Vital Sign Reading Time Taken Comments Blood Pressure 123/76 07/08/2022 7:12 PM PROFESSOR OF PHILOSOPHY Pulse 122 07/08/2022 7:12 PM PROFESSOR OF PHILOSOPHY Temperature 36.8 C (98.3 F) 07/08/2022 7:12 PM PROFESSOR OF PHILOSOPHY Respiratory Rate 16 07/08/2022 7:12 PM PROFESSOR OF PHILOSOPHY Oxygen Saturation 97% 07/08/2022 7:12 PM PROFESSOR OF PHILOSOPHY Inhaled Oxygen Concentration - - Weight 96.2 kg (212 lb) 07/08/2022 7:12 PM PROFESSOR OF PHILOSOPHY Height 157.5 cm (5' 2) 07/08/2022 7:12 PM PROFESSOR OF PHILOSOPHY Body Mass Index 38.78 07/08/2022 7:12 PM PROFESSOR OF PHILOSOPHY Plan of Treatment Health Maintenance Due Date [...] season) 2025 Influenza Vaccine (#1) 2025 Insurance [facility] OOS BLUE ACC CHOICE OOS BLUE [facility] CHOICE OOS Care Teams Inspector Conveyor Line Relationship Specialty Start Date End Date Michi Gruber MD PCP - General Family Medicine 09/26/17
== END 2025-05-25 19:25 | disposition left against medical advice (07) ==
PROVIDERS: PCP Family Medicine Adolescent Medicine
DX: R42 Dizziness and giddiness (principal)
CPT/HCPCS: 99199

== ENCOUNTER 2025-05-26 16:22 | Outpatient (CLI) | payer OTHER, SELFPAY ==
[2025-05-26 16:56] LABS: Hematocrit 38.0 % (37.0-47.0); Hemoglobin 12.7 g/dL (12.0-15.0); Immature Granulocyte Percent A 0.3 % (0-0.5); Lymphocytes Absolute Auto 2.97 K/mm3 (0.9-3.2); Mean Corpuscular HGB Conc 33.4 g/dl (32-36); Mean Corpuscular Hemoglobin 30.2 pg (26-34); Mean Corpuscular Volume 90.3 fl (80-100); Nucleated Red Blood Cells Absolute Auto 0.000 K/mm3 (0.0-0.012); Nucleated Red Blood Cells Perc 0.0 % (0.0-0.2); Platelet Count Result 334 k/mm3 (150-375); Red Blood Count 4.21 M/mm3 (4.2-5.4); White Blood Count 11.9 K/mm3 (4.5-10.0)
[2025-05-26 17:13] LABS: Alanine Aminotransferase 21 U/L (6-35); Albumin Level 4.6 g/dL (3.5-5.1); Alkaline Phosphatase 73 U/L (38-126); Anion Gap 10 mmol/L (4-12); Aspartate Amino Transferase 25 U/L (14-36); Bilirubin,Total 0.3 mg/dL (0.2-1.3); Blood Urea Nitrogen 23 mg/dL (7-17); Calcium 9.0 mg/dL (8.4-10.2); Carbon Dioxide 26 mmol/L (22-30); Chloride 101 mmol/L (98-107); Estimated Glomerular Filt Rate > 60; Glucose 84 mg/dL (65-110); Potassium 4.0 mmol/L (3.4-5.0); Sodium 137 mmol/L (137-145); Total Protein 8.2 g/dL (6.3-8.2)
[2025-05-26 17:42] LABS: Thyroid Stimulating Hormone Reflex 2.010 uIU/mL (0.465-4.68)
--- OUTSIDE RECORDS SUMMARY | 2025-05-26 21:07 | XMS_ITS | Clinical Summary ---
Author Organization [facility] Address [address] [place] [address] Care Team Providers Care Poultry Farmworker Name Role Phone Michi Gruber MD Primary Care Provider + Source Comments [facility],non-owned Affiliates and Associated Physician Practices is amultiple site organization consisting of ambulatory clinics and hospital sitesin [place], [place], [place] and [place]. This disclosure is being madepursuant to the Care Everywhere program and may not contain all information available regarding this patient. Last updated 18.[facility] Allergies Active Allergy Reactions Criticality Noted Date [...] and heating? Not hard at all 07/31/2022 [facility] of Occupat ional Health - Occupational Stress [...] place to sleep or slept in a group home (including now)? No 07/31/2022 Comments No Sex and Gender Information Value Date Recorded Sex Assigned at Not on file Legal Sex Female 5:45 AM MACHINE WEDGER Gender Identity Not on file Sexual Orientation Not on file Last Filed Vital Signs Vital Sign Reading Time Taken Comments Blood Pressure 112/73 08/16/2022 11:25 AM MACHINE WEDGER Pulse 108 08/16/2022 11:25 AM MACHINE WEDGER Temperature 36.5 C (97.7 F) 08/01/2022 12:05 PM MACHINE WEDGER Respiratory Rate 20 08/01/2022 12:0 5 PM MACHINE WEDGER Oxygen Saturation 99% 08/01/2022 12: 05 PM MACHINE WEDGER Inhaled Oxygen Concentration - - Weight 92.4 kg (203 lb 12.8 oz) 023 11:13 AM MACHINE WEDGER Height 157.5 cm (5' 2) 07/31/2022 11:1 3 AM MACHINE WEDGER Body Mass Index 37.28 07/31/2022 11:13 AM MACHINE WEDGER Plan of Treatment Health Maintenance Due Date [...] SCREEN ACUTE STAT 07/31/2022 11:39 AM MACHINE WEDGER Elevated liver enzymes from Last 3 Months or Most Recently Relevant to Health Maintenance Results * HEPATITIS SCREEN ACUTE (07/31/2022 11:39 AM MACHINE WEDGER) HAV Antibody IgM Non Reactive Non Reactive 07/31/2022 12:53 PM MACHINE WEDGER [facility] HBsAg Non Reactive Non Reactive 07/31/2022 12:53 PM MACHINE WEDGER [facility] HBc Antibody IgM Non Reactive Non Reactive 07/31/2022 12:53 PM MACHINE WEDGER [facility] HCV Antibody Screen Non Reactive Non Reactive 07/31/2022 12:53 PM MACHINE WEDGER [facility] Blood BLOOD SPECIMEN / Unknown Venipuncture / Unknown 07/31/2022 11:39 AM MACHINE WEDGER 07/31/2022 11:50 AM MACHINE WEDGER Narrative [facility] - 07/31/2022 12:53 PM MACHINE WEDGER Non Reactive - Antibodies to Hepatitis C virus (HCV) were not detected, result does not exclude early acute HCV infection. Herb Burgess MD LAB - CHEMISTRY ORDERABLES Final Result Performing Organization Address City/State/[place] Co de Phone Number [facility] [address] [place] [address] from Last 3 Months or Most Recently Relevant to Health Maintenance Insurance [address] [place] [phone] MEDICAID [place] SELF PAY NO INSURANCE Member Subscriber Plan / Payer (Ef fective for All Dates) Name:Kleber Bullock Member ID:Not on file Relation to Subscriber:Not on file Name:KLEBER BULLOCK Subscriber ID:Not on file (Home) Address: [address] [place] [address] [place] [phone] Payer ID:Not on file Group ID:Not on file Type:Self Pay Address: [place], [place] Advance Directives * Full Code (Latest Code Status on File) Date Activated Date Inactivated Comments 07/31/2022 3:05 PM 08/01/2022 7:38 PM Care Teams Poultry Farmworker Relationship Specialty Start Date End Date Michi Gruber MD [address] [address] PCP - General 09/19/21
--- OUTSIDE RECORDS SUMMARY | 2025-05-26 21:07 | XMS_ITS | Clinical Summary ---
Author Organization [facility] Address [address] [place] [phone] Phone Care Team Providers Care Marble Polisher Name Role Phone Michi Gruber MD Primary [...] on file Legal Sex Female 1:02 PM COMMERCIAL REAL ESTATE UNDERWRITER Gender Identity Not on file Sexual Orientation Not on file Obstetrics History Para Term AB IAB SAB Ectopic Multiple Livin g Live Births 1 Date Outcome GA Total Labor Labor/2nd/3rd Weight Sex Type Anes PTL Justina A1 A5 Name Clin Last Filed Vital Signs Vital Sign Reading Time Taken Comments Blood Pressure 123/76 07/08/2022 7:12 PM COMMERCIAL REAL ESTATE UNDERWRITER Pulse 122 07/08/2022 7:12 PM COMMERCIAL REAL ESTATE UNDERWRITER Temperature 36.8 C (98.3 F) 07/08/2022 7:12 PM COMMERCIAL REAL ESTATE UNDERWRITER Respiratory Rate 16 07/08/2022 7:12 PM COMMERCIAL REAL ESTATE UNDERWRITER Oxygen Saturation 97% 07/08/2022 7:12 PM COMMERCIAL REAL ESTATE UNDERWRITER Inhaled Oxygen Concentration - - Weight 96.2 kg (212 lb) 07/08/2022 7:12 PM COMMERCIAL REAL ESTATE UNDERWRITER Height 157.5 cm (5' 2) 07/08/2022 7:12 PM COMMERCIAL REAL ESTATE UNDERWRITER Body Mass Index 38.78 07/08/2022 7:12 PM COMMERCIAL REAL ESTATE UNDERWRITER Plan of Treatment Health Maintenance Due Date [...] season) 2025 Influenza Vaccine (#1) 2025 Insurance [facility] CHOICE OOS BLUE ACC CHOICE OOS BLUE [facility] CHOICE OOS Care Teams Marble Polisher Relationship Specialty Start Date End Date Michi Gruber MD PCP - General Family Medicine 09/26/17
--- OUTSIDE RECORDS SUMMARY | 2025-05-26 21:07 | XMS_ITS | Clinical Summary ---
Author Organization [facility] Address [address] [place] [address] Phone Care Team Providers Care Varnish Blender Name Role Phone Michi Gruber MD Primary Care Provider +1- [phone] Allergies Active Allergy Reactions Criticality Noted Date Comments Adhesive Tape-Silicones Hives High 02/13/2018 Azithromycin Hives High 09/28/2017 Codeine Anxiety Low 09/28/2017 Medications vits15/iron/foli c/dss ( VIT 27-[id number]-[id number]-DS S ORAL) Take by mouth. Active ferrous [...] Comments Blood Pressure 103/57 06/02/2024 1:12 AM OCCUPATIONAL THERAPY AIDES TEACHER Pulse 84 06/02/2024 1:12 AM OCCUPATIONAL THERAPY AIDES TEACHER Temperature 36.6 C (97.8 F) 06/02/2024 1:40 AM OCCUPATIONAL THERAPY AIDES TEACHER Respiratory Rate 18 06/02/2024 1:12 AM OCCUPATIONAL THERAPY AIDES TEACHER Oxygen Saturation 97% 06/02/2024 1:12 AM OCCUPATIONAL THERAPY AIDES TEACHER Inhaled Oxygen Concentration - - Weight 93.4 kg (206 lb) 07/30/2022 3:27 PM OCCUPATIONAL THERAPY AIDES TEACHER Height 157.5 cm (5' 2) 07/30/2022 3:27 PM OCCUPATIONAL THERAPY AIDES TEACHER Body Mass Index 37.68 07/30/2022 3:27 PM OCCUPATIONAL THERAPY AIDES TEACHER Plan of Treatment Health Maintenance Due Date [...] Advance Directives For more information, please contact: [phone] * Full Code (Latest Code Status on File) Date Activated Date Inactivated Comments 02/14/2018 2:36 PM 02/15/2018 3:17 PM Care Teams Varnish Blender Relationship Specialty Start Date End Date Michi Gruber MD PCP - General Family Practice 09/28/17
== END 2025-05-26 16:23 | disposition home or self-care (01) ==
LOC: ANHLAB 16:23
PROVIDERS: PCP Family Medicine Adolescent Medicine; Visit Provider Nurse Practitioner Family
DX: N92.0 Excessive and frequent menstruation with regular cycle (principal)
CPT/HCPCS: 36415; 80053; 84443; 85025

== ENCOUNTER 2025-07-06 11:41 | Outpatient (CLI) | payer OTHER, SELFPAY ==
--- OUTSIDE RECORDS SUMMARY | 2025-06-15 10:48 | XMS_ITS | Clinical Summary ---
Author Organization [facility] Address [address] [place] [phone] Phone Care Team Providers Care Fitness Plan Coordinator Name Role Phone Michi Gruber MD [...] on file Legal Sex Female 1:02 PM PIN DRAFTER OPERATOR Gender Identity Not on file Sexual Orientation Not on file Obstetrics History Para Term AB IAB SAB Ectopic Multiple Livin g Live Births 1 Date Outcome GA Total Labor Labor/2nd/3rd Weight Sex Type Anes PTL Justina A1 A5 Name Clin Last Filed Vital Signs Vital Sign Reading Time Taken Comments Blood Pressure 123/76 07/08/2022 7:12 PM PIN DRAFTER OPERATOR Pulse 122 07/08/2022 7:12 PM PIN DRAFTER OPERATOR Temperature 36.8 C (98.3 F) 07/08/2022 7:12 PM PIN DRAFTER OPERATOR Respiratory Rate 16 07/08/2022 7:12 PM PIN DRAFTER OPERATOR Oxygen Saturation 97% 07/08/2022 7:12 PM PIN DRAFTER OPERATOR Inhaled Oxygen Concentration - - Weight 96.2 kg (212 lb) 07/08/2022 7:12 PM PIN DRAFTER OPERATOR Height 157.5 cm (5' 2) 07/08/2022 7:12 PM PIN DRAFTER OPERATOR Body Mass Index 38.78 07/08/2022 7:12 PM PIN DRAFTER OPERATOR Plan of Treatment Health Maintenance Due [...] season) 2025 Influenza Vaccine (#1) 2025 Insurance [facility] CHOICE OOS BLUE ACC CHOICE OOS BLUE [facility] CHOICE OOS Care Teams Fitness Plan Coordinator Relationship Specialty Start Date End Date Michi Gruber MD PCP - General Family Medicine 09/26/17
--- OUTSIDE RECORDS SUMMARY | 2025-06-15 10:48 | XMS_ITS | Clinical Summary ---
Author Organization [facility] [employer] Address [address] [place] [address] Care Team Providers Care Referral Agent Name Role Phone Michi Gruber MD Primary Care Provider + Source Comments [facility] [employer],non-owned Affiliates and Associated Physician Practices is amultiple site organization consisting of ambulatory clinics and hospital sitesin [place], [place], [place] and [place]. This disclosure is being madepursuant to the Care Everywhere program and may not contain all information available regarding this patient. Last updated 18.[facility] [employer] Allergies Active Allergy Reactions Criticality Noted Date [...] and heating? Not hard at all 07/31/2022 [facility] [place] of Occupat ional Health - Occupational Stress [...] on file Legal Sex Female 5:45 AM CANE FLUME CHUTE OPERATOR Gender Identity Not on file Sexual Orientation Not on file Last Filed Vital Signs Vital Sign Reading Time Taken Comments Blood Pressure 112/73 08/16/2022 11:25 AM CANE FLUME CHUTE OPERATOR Pulse 108 08/16/2022 11:25 AM CANE FLUME CHUTE OPERATOR Temperature 36.5 C (97.7 F) 08/01/2022 12:05 PM CANE FLUME CHUTE OPERATOR Respiratory Rate 20 08/01/2022 12:0 5 PM CANE FLUME CHUTE OPERATOR Oxygen Saturation 99% 08/01/2022 12: 05 PM CANE FLUME CHUTE OPERATOR Inhaled Oxygen Concentration - - Weight 92.4 kg (203 lb 12.8 oz) 023 11:13 AM CANE FLUME CHUTE OPERATOR Height 157.5 cm (5' 2) 07/31/2022 11:1 3 AM CANE FLUME CHUTE OPERATOR Body Mass Index 37.28 07/31/2022 11:13 AM CANE FLUME CHUTE OPERATOR Plan of Treatment Health Maintenance Due [...] HEPATITIS SCREEN ACUTE STAT 07/31/2022 11:39 AM CANE FLUME CHUTE OPERATOR Elevated liver enzymes from Last 3 Months or Most Recently Relevant to Health Maintenance Results * HEPATITIS SCREEN ACUTE (07/31/2022 11:39 AM CANE FLUME CHUTE OPERATOR) HAV Antibody IgM Non Reactive Non Reactive 07/31/2022 12:53 PM CANE FLUME CHUTE OPERATOR [facility] HBsAg Non Reactive Non Reactive 07/31/2022 12:53 PM CANE FLUME CHUTE OPERATOR [facility] HBc Antibody IgM Non Reactive Non Reactive 07/31/2022 12:53 PM CANE FLUME CHUTE OPERATOR [facility] HCV Antibody Screen Non Reactive Non Reactive 07/31/2022 12:53 PM CANE FLUME CHUTE OPERATOR [facility] Blood BLOOD SPECIMEN / Unknown Venipuncture / Unknown 07/31/2022 11:39 AM CANE FLUME CHUTE OPERATOR 07/31/2022 11:50 AM CANE FLUME CHUTE OPERATOR Narrative [facility] - 07/31/2022 12:53 PM CANE FLUME CHUTE OPERATOR Non Reactive - Antibodies to Hepatitis C virus (HCV) were not detected, result does not exclude early acute HCV infection. Herb Burgess MD LAB - CHEMISTRY ORDERABLES Final Result Performing Organization Address City/State/[facility] Co de Phone Number [facility] [address] [place] [address] from Last 3 Months or Most Recently Relevant to Health Maintenance Insurance [address] [place] [phone] MEDICAID [place] SELF PAY NO INSURANCE Member Subscriber Plan / Payer (Ef fective for All Dates) Name:Kleber Bullock Member ID:Not on file Relation to Subscriber:Not on file Name:KLEBER BULLOCK Subscriber ID:Not on file (Home) Address: [address] [place] [address] [place] [phone] Payer ID:Not on file Group ID:Not on file Type:Self Pay Address: [place], [place] Advance Directives * Full Code (Latest Code Status on File) Date Activated Date Inactivated Comments 07/31/2022 3:05 PM 08/01/2022 7:38 PM Care Teams Referral Agent Relationship Specialty Start Date End Date Michi Gruber MD [address] [address] PCP - General 09/19/21
--- OUTSIDE RECORDS SUMMARY | 2025-06-15 10:48 | XMS_ITS | Clinical Summary ---
Author Organization [facility] Address [address] [place] [address] Phone Care Team Providers Care High School Sports Coach Name Role Phone Michi Gruber MD Primary Care Provider +1- [phone] Allergies Active Allergy Reactions Criticality Noted Date Comments Adhesive Tape-Silicones Hives High 02/13/2018 Azithromycin Hives High 09/28/2017 Codeine Anxiety Low 09/28/2017 Medications vits15/iron/foli c/dss ( VIT 57-GUII-APPOG-DS S ORAL) Take by mouth. Active ferrous [...] Years Used Date Smoking Tobacco: Former Cigarettes 0.5 Q uit: 10/19/2018 Smokeless Tobacco: Never Alcohol [...] Comments Blood Pressure 103/57 06/02/2024 1:12 AM HR BUSINESS PARTNER CONSULTANT Pulse 84 06/02/2024 1:12 AM HR BUSINESS PARTNER CONSULTANT Temperature 36.6 C (97.8 F) 06/02/2024 1:40 AM HR BUSINESS PARTNER CONSULTANT Respiratory Rate 18 06/02/2024 1:12 AM HR BUSINESS PARTNER CONSULTANT Oxygen Saturation 97% 06/02/2024 1:12 AM HR BUSINESS PARTNER CONSULTANT Inhaled Oxygen Concentration - - Weight 93.4 kg (206 lb) 07/30/2022 3:27 PM HR BUSINESS PARTNER CONSULTANT Height 157.5 cm (5' 2) 07/30/2022 3:27 PM HR BUSINESS PARTNER CONSULTANT Body Mass Index 37.68 07/30/2022 3:27 PM HR BUSINESS PARTNER CONSULTANT Plan of Treatment Health Maintenance Due [...] Advance Directives For more information, please contact: [phone] * Full Code (Latest Code Status on File) Date Activated Date Inactivated Comments 02/14/2018 2:36 PM 02/15/2018 3:17 PM Care Teams High School Sports Coach Relationship Specialty Start Date End Date Michi Gruber MD PCP - General Family Practice 09/28/17
--- OUTSIDE RECORDS SUMMARY | 2025-07-06 13:53 | XMS_ITS | Clinical Summary ---
Author Organization [facility] Address [address] [place] [address] Phone Care Team Providers Care Field Traffic Investigator Name Role Phone Michi Gruber MD Primary Care Provider +1- [phone] Allergies Active Allergy Reactions Criticality Noted Date Comments Adhesive Tape-Silicones Hives High 02/13/2018 Azithromycin Hives High 09/28/2017 Codeine Anxiety Low 09/28/2017 Medications vits15/iron/foli c/dss ( VIT 30-CPEJ-KYVRG-DS S ORAL) Take by mouth. Active ferrous [...] Comments Blood Pressure 103/57 06/02/2024 1:12 AM AUDIO VIDEO MECHANIC Pulse 84 06/02/2024 1:12 AM AUDIO VIDEO MECHANIC Temperature 36.6 C (97.8 F) 06/02/2024 1:40 AM AUDIO VIDEO MECHANIC Respiratory Rate 18 06/02/2024 1:12 AM AUDIO VIDEO MECHANIC Oxygen Saturation 97% 06/02/2024 1:12 AM AUDIO VIDEO MECHANIC Inhaled Oxygen Concentration - - Weight 93.4 kg (206 lb) 07/30/2022 3:27 PM AUDIO VIDEO MECHANIC Height 157.5 cm (5' 2) 07/30/2022 3:27 PM AUDIO VIDEO MECHANIC Body Mass Index 37.68 07/30/2022 3:27 PM AUDIO VIDEO MECHANIC Plan of Treatment Health Maintenance Due Date Last Done Comments DTAP/TDAP/TD VACCINES (1 - Tdap) 2016 HEPATITIS B VACCINES (1 of 3 - 19+ 3-dose series) 05/22 CERVICAL CANCER SCREENING 2018 HPV/Cotest (21-29) 2018 PAP SMEAR 2018 INFLUENZA VACCINE (#1) 2025 HPV VACCINES (No Doses Required) Completed Insurance RX [facility] [facility] Advance Directives For more information, please contact: [phone] * Full Code (Latest Code Status on File) Date Activated Date Inactivated Comments 02/14/2018 2:36 PM 02/15/2018 3:17 PM Care Teams Field Traffic Investigator Relationship Specialty Start Date End Date Michi Gruber MD PCP - General Family Practice 09/28/17
--- OUTSIDE RECORDS SUMMARY | 2025-07-06 13:53 | XMS_ITS | Clinical Summary ---
Author Organization [facility] [employer] Address [address] [place] [address] Care Team Providers Care Extension Work Instructor Name Role Phone Michi Gruber MD Primary Care Provider + Source Comments [facility] [employer],non-owned Affiliates and Associated Physician Practices is amultiple site organization consisting of ambulatory clinics and hospital sitesin [place], [place], [place] and [place]. This disclosure is being madepursuant to the Care Everywhere program and may not contain all information available regarding this patient. Last updated 18.[facility] [employer] Allergies Active Allergy Reactions Criticality Noted Date [...] and heating? Not hard at all 07/31/2022 [facility] [place] of Occupat ional Health - Occupational Stress [...] on file Legal Sex Female 5:45 AM COATING AND BAKING OPERATOR Gender Identity Not on file Sexual Orientation Not on file Last Filed Vital Signs Vital Sign Reading Time Taken Comments Blood Pressure 112/73 08/16/2022 11:25 AM COATING AND BAKING OPERATOR Pulse 108 08/16/2022 11:25 AM COATING AND BAKING OPERATOR Temperature 36.5 C (97.7 F) 08/01/2022 12:05 PM COATING AND BAKING OPERATOR Respiratory Rate 20 08/01/2022 12:0 5 PM COATING AND BAKING OPERATOR Oxygen Saturation 99% 08/01/2022 12: 05 PM COATING AND BAKING OPERATOR Inhaled Oxygen Concentration - - Weight 92.4 kg (203 lb 12.8 oz) 023 11:13 AM COATING AND BAKING OPERATOR Height 157.5 cm (5' 2) 07/31/2022 11:1 3 AM COATING AND BAKING OPERATOR Body Mass Index 37.28 07/31/2022 11:13 AM COATING AND BAKING OPERATOR Plan of Treatment Health Maintenance Due [...] HEPATITIS SCREEN ACUTE STAT 07/31/2022 11:39 AM COATING AND BAKING OPERATOR Elevated liver enzymes from Last 3 Months or Most Recently Relevant to Health Maintenance Results * HEPATITIS SCREEN ACUTE (07/31/2022 11:39 AM COATING AND BAKING OPERATOR) HAV Antibody IgM Non Reactive Non Reactive 07/31/2022 12:53 PM COATING AND BAKING OPERATOR [facility] HBsAg Non Reactive Non Reactive 07/31/2022 12:53 PM COATING AND BAKING OPERATOR [facility] HBc Antibody IgM Non Reactive Non Reactive 07/31/2022 12:53 PM COATING AND BAKING OPERATOR [facility] HCV Antibody Screen Non Reactive Non Reactive 07/31/2022 12:53 PM COATING AND BAKING OPERATOR [facility] Blood BLOOD SPECIMEN / Unknown Venipuncture / Unknown 07/31/2022 11:39 AM COATING AND BAKING OPERATOR 07/31/2022 11:50 AM COATING AND BAKING OPERATOR Narrative [facility] - 07/31/2022 12:53 PM COATING AND BAKING OPERATOR Non Reactive - Antibodies to Hepatitis C virus (HCV) were not detected, result does not exclude early acute HCV infection. Herb Burgess MD LAB - CHEMISTRY ORDERABLES Final Result Performing Organization Address City/State/[facility] Co de Phone Number [facility] [address] [place] [address] from Last 3 Months or Most Recently Relevant to Health Maintenance Insurance [address] [place] [phone] MEDICAID - [place] SELF PAY NO INSURANCE Member Subscriber Plan / Payer (Ef fective for All Dates) Name:Kleber Bullock Member ID:Not on file Relation to Subscriber:Not on file Name:KLEBER BULLOCK Subscriber ID:Not on file (Home) Address: [address] [place] [address] [place] [phone] Payer ID:Not on file Group ID:Not on file Type:Self Pay Address: [place], [place] Advance Directives * Full Code (Latest Code Status on File) Date Activated Date Inactivated Comments 07/31/2022 3:05 PM 08/01/2022 7:38 PM Care Teams Extension Work Instructor Relationship Specialty Start Date End Date Michi Gruber MD [address] [address] PCP - General 09/19/21
--- OUTSIDE RECORDS SUMMARY | 2025-07-06 13:53 | XMS_ITS | Clinical Summary ---
Author Organization [facility] Virtual Care Address [address] [place] [phone] Phone Care Team Providers Care Supervisor Nutritional Yeast Name Role Phone Michi Gruber MD Primary [...] on file Legal Sex Female 1:02 PM GLOBAL CLIMATE CHANGE ANALYST Gender Identity Not on file Sexual Orientation Not on file Obstetrics History Para Term AB IAB SAB Ectopic Multiple Livin g Live Births 1 Date Outcome GA Total Labor Labor/2nd/3rd Weight Sex Type Anes PTL Justina A1 A5 Name Clin Last Filed Vital Signs Vital Sign Reading Time Taken Comments Blood Pressure 123/76 07/08/2022 7:12 PM GLOBAL CLIMATE CHANGE ANALYST Pulse 122 07/08/2022 7:12 PM GLOBAL CLIMATE CHANGE ANALYST Temperature 36.8 C (98.3 F) 07/08/2022 7:12 PM GLOBAL CLIMATE CHANGE ANALYST Respiratory Rate 16 07/08/2022 7:12 PM GLOBAL CLIMATE CHANGE ANALYST Oxygen Saturation 97% 07/08/2022 7:12 PM GLOBAL CLIMATE CHANGE ANALYST Inhaled Oxygen Concentration - - Weight 96.2 kg (212 lb) 07/08/2022 7:12 PM GLOBAL CLIMATE CHANGE ANALYST Height 157.5 cm (5' 2) 07/08/2022 7:12 PM GLOBAL CLIMATE CHANGE ANALYST Body Mass Index 38.78 07/08/2022 7:12 PM GLOBAL CLIMATE CHANGE ANALYST Plan of Treatment Health Maintenance Due [...] season) 2025 Influenza Vaccine (#1) 2025 Insurance [facility] CHOICE OOS BLUE ACC CHOICE OOS BLUE [facility] CHOICE OOS Care Teams Supervisor Nutritional Yeast Relationship Specialty Start Date End Date Michi Gruber MD PCP - General Family Medicine 09/26/17
== END 2025-07-06 11:42 | disposition home or self-care (01) ==
LOC: ANHCARD 11:42
PROVIDERS: PCP Nurse Practitioner Family; Visit Provider Nurse Practitioner Family
DX: R00.2 Palpitations (principal)
CPT/HCPCS: 93242